=== PATIENT | male | born 1960 | race Caucasian/White ===

== ENCOUNTER → 2016-09-11 | Outpatient (REF) | payer SELFPAY ==
[2016-09-11 13:44] LABS: ANION GAP 7 MEQ/L (8-16); BLOOD UREA NITROGEN 16 MG/DL (7-18); CALCIUM LEVEL 8.7 MG/DL (8.5-10.1); CARBON DIOXIDE LEVEL 26 MEQ/L (21-32); CHLORIDE LEVEL 106 MEQ/L (98-107); CHOLESTEROL LEVEL 148 MG/DL (<200); CREATININE FOR GFR 0.55 MG/DL (0.70-1.30); GLOMERULAR FILTRATION RATE > 60.0 (>56); GLUCOSE, FASTING 101 MG/DL (70-105); POTASSIUM SERUM 4.1 MEQ/L (3.5-5.1); SODIUM LEVEL 139 MEQ/L (136-145); TRIGLYCERIDES LEVEL 58 MG/DL (<150)
== END ==
LOC: M LABDRAW1 11:57
PROVIDERS: ATTEND Family Medicine
DX: Z13.1 Encounter for screening for diabetes mellitus (principal); Z13.220 Encounter for screening for lipoid disorders; I10 Essential (primary) hypertension

== ENCOUNTER → 2016-09-24 | Outpatient (CLI) | payer SELFPAY ==
[~2016-09-24] VITALS: Ht 154.9 cm; Wt 54.4 kg
[~2016-09-24] MED LIST: ATOR1TAB21 PO; HYDR25TA6 PO; LIDOCAINE 2% INJ 100 MG/5 ML SDV (FOR ANES.) As Ordered ONE; LISI10TA4 PO; NS 1,000 ML IV ONE; PROPOFOL 200 MG/20 ML VIAL As Ordered ONE; PROPOFOL 500 MG/50 ML VIAL As Ordered ONE
--- NOTE | 2016-09-24 11:55 | ROOR ---
Patient Name: Darshan Gregory Procedure Date: 09/24/2016 11:17 AM Date of : 1960 Age: 55 Room: [facility] Gender: Male Note Status: Finalized Procedure: Colonoscopy Indications: Screening for colorectal malignant neoplasm Providers: Pancho Figueroa DO Referring MD: Abe Recio Do Requesting Provider: Medicines: Propofol per Anesthesia Complications: No immediate complications. Procedure: Pre-Anesthesia Assessment: - Prior to the procedure, a History and Physical was performed, and patient medications and allergies were reviewed. The patient is competent. The risks and benefits of the procedure and the sedation options and risks were discussed with the patient. All questions were answered and informed consent was obtained. Patient identification and proposed procedure were verified by the physician, the nurse, the anesthesiologist and the cartographic technician in the endoscopy suite. Mental Status Examination: alert and oriented. Airway Examination: normal oropharyngeal airway and neck mobility. Respiratory Examination: clear to auscultation. CV Examination: normal. Prophylactic Antibiotics: The patient does not require prophylactic antibiotics. Prior Anticoagulants: The patient has taken no previous anticoagulant or antiplatelet agents. ASA Grade Assessment: II - A patient with mild systemic disease. After reviewing the risks and benefits, the patient was deemed in satisfactory condition to undergo the procedure. The anesthesia plan was to use monitored anesthesia care (MAC). Immediately prior to administration of medications, the patient was re-assessed for adequacy to receive sedatives. The heart rate, respiratory rate, oxygen saturations, blood pressure, adequacy of pulmonary ventilation, and response to care were monitored throughout the procedure. The physical status of the patient was re-assessed after the procedure. The Colonoscope was introduced through the anus and advanced to the cecum, identified by appendiceal orifice and ileocecal valve. The colonoscopy was performed without difficulty. The patient tolerated the procedure well. Findings: Multiple small and large-mouthed diverticula were found in the sigmoid colon. A diffuse area of moderately congested, erythematous and friable (with contact bleeding) mucosa was found in the sigmoid colon. Biopsies were taken with a cold forceps for histology. Estimated blood loss was minimal. Three pedunculated polyps were found in the transverse colon. The polyps were 8 to 15 mm in size. These polyps were removed with a hot snare. Resection and retrieval were complete. Estimated blood loss was minimal. A less than 5 mm polyp was found in the sigmoid colon. The polyp was hyperplastic. The polyp was removed with a cold biopsy forceps. Resection and retrieval were complete. Estimated blood loss was minimal. The exam was otherwise without abnormality on direct and retroflexion views. Impression: - Diverticulosis in the sigmoid colon. - Congested, erythematous and friable (with contact bleeding) mucosa in the sigmoid colon. Biopsied. - Three 8 to 15 mm polyps in the transverse colon, removed with a hot snare. Resected and retrieved. - One less than 5 mm polyp in the sigmoid colon, removed with a cold biopsy forceps. Resected and retrieved. - The examination was otherwise normal on direct and retroflexion views. Recommendation: - Patient has a contact number available for emergencies. The signs and symptoms of potential delayed complications were discussed with the patient. Return to normal activities tomorrow. Written discharge instructions were provided to the patient. - Repeat colonoscopy in 3 years for surveillance based on pathology results. - Return to my office PRN. Pancho Figueroa DO 09/24/2016 11:55:06 AM This report has been signed electronically. Number of Addenda: 0 Note Initiated On: 09/24/2016 11:17 AM Estimated Blood Loss: Estimated blood loss was minimal.
[2016-09-24 12:33] VITALS: BP 141/87
== END | disposition home or self-care (01) ==
LOC: M OPP 09:44
PROVIDERS: ATTEND Surgery
DX: Z12.11 Encounter for screening for malignant neoplasm of colon (principal); D12.3 Benign neoplasm of transverse colon; D12.5 Benign neoplasm of sigmoid colon; K57.30 Diverticulosis of large intestine without perforation or abscess without bleeding; K63.89 Other specified diseases of intestine; K92.2 Gastrointestinal hemorrhage, unspecified; I10 Essential (primary) hypertension; E78.5 Hyperlipidemia, unspecified; F32.9 Major depressive disorder, single episode, unspecified; R51 Headache; I20.9 Angina pectoris, unspecified; F17.210 Nicotine dependence, cigarettes, uncomplicated; F12.20 Cannabis dependence, uncomplicated; Z79.899 Other long term (current) drug therapy; Z80.8 Family history of malignant neoplasm of other organs or systems; Z80.3 Family history of malignant neoplasm of breast; Z80.1 Family history of malignant neoplasm of trachea, bronchus and lung

== ENCOUNTER 2017-04-14 23:16 | Inpatient (IN) | payer MEDICAID, SELFPAY ==
[2017-04-14] MEDS: NS 1,000 ML IV (23:30)
[2017-04-14 23:37] LABS: HEMATOCRIT 46.4 % (42.0-52.0); HEMOGLOBIN 16.2 g/dl (14.0-18.0); MEAN CORPUSCULAR HEMOGLOBIN 29.9 pg (27.0-33.0); MEAN CORPUSCULAR HGB CONC 34.9 g/dl (32.0-36.5); MEAN CORPUSCULAR VOLUME 85.8 fl (80.0-96.0); PLATELET COUNT, AUTOMATED 194 10^3/uL (150-450); RED BLOOD COUNT 5.41 10^6/uL (4.30-6.10); RED CELL DISTRIBUTION WIDTH 14.8 % (11.5-14.5)
[2017-04-14 23:40] LABS: POS COUNT POS FLAG; POSITIVE DIFF POS FLAG; POSITIVE MORPH POS FLAG; WHITE BLOOD COUNT 47.7 10^3/uL (4.0-10.0)
[2017-04-14 23:41] LABS: ADD MANUAL DIFFER YES; DIFF SLIDE NUMBER 365
[2017-04-14] MEDS: LORazepam 2 MG/ML VIAL (J2060) IV (23:42)
[2017-04-14 23:47] LABS: INR 1.35
[2017-04-14 23:48] LABS: PARTIAL THROMBOPLASTIN TIME 30.4 SECONDS (26.8-37.9)
[2017-04-15 00:01] LABS: ACETAMINOPHEN LEVEL 4.3 UG/ML (10.0-30.0); ALBUMIN 2.9 GM/DL (3.2-5.2); ALBUMIN/GLOBULIN RATIO 0.66 (1.00-1.93); ALKALINE PHOSPHATASE 370 U/L (45-117); ALT/SGPT 70 U/L (12-78); ANION GAP 19 MEQ/L (8-16); AST/SGOT 81 U/L (7-37); BILIRUBIN,DIRECT 0.3 MG/DL (0.0-0.2); BILIRUBIN,TOTAL 0.7 MG/DL (0.2-1.0); BLOOD UREA NITROGEN 62 MG/DL (7-18); CARBON DIOXIDE LEVEL 18 MEQ/L (21-32); CHLORIDE LEVEL 102 MEQ/L (98-107); CPK CREATINE PHOSPHOKINASE 360 U/L (39-308); CREATININE FOR GFR 3.07 MG/DL (0.70-1.30); ETHYL ALCOHOL (ETHANOL) 0.005 % (0.000-0.010); GLOMERULAR FILTRATION RATE 22.5 (>56); GLUCOSE, FASTING 166 MG/DL (70-105); POTASSIUM SERUM 2.3 MEQ/L (3.5-5.1); SALICYLATE LEVEL 3.7 MG/DL (5.0-30.0); SODIUM LEVEL 139 MEQ/L (136-145); TOTAL PROTEIN 7.3 GM/DL (6.4-8.2); TROPONIN I 0.17 NG/ML (< 0.10)
[2017-04-15 00:06] LABS: CK-MB VALUE MASS 16.2 NG/ML (0.0-3.6)
[2017-04-15 00:08] LABS: BANDS 1 % (< 11); LYMPHOCYTES 3 % (16-52); MONOCYTES 4 % (0-8); NEUTROPHILS 92 % (35-75)
[2017-04-15 00:09] LABS: PLATELET ESTIMATE NORMAL (NORMAL); TOXIC VACUOLATION 2+
[2017-04-15 00:10] LABS: TOXIC GRANULATION 1+
[2017-04-15 00:11] LABS: BURR CELLS 2+; PLATELET CLUMPS SMALL AMT
[2017-04-15 00:13] LABS: LACTIC ACID SEPSIS PROTOCOL 6.8 MMOL/L (0.4-2.0)
[2017-04-15 00:18] LABS: ABG HCO3 18.2 MEQ/L (22.0-26.0); ABG O2 SATURATION 93.6 % (95.0-99.0); ABG PARTIAL PRESSURE CO2 29.6 mmHg (35.0-45.0); ABG STANDARD HCO3 20.3 MEQ/L (22.0-26.0); ABG TOTAL CO2 19.1 MEQ/L (22.0-29.0); ABG pH (ARTERIAL) 7.407 UNITS (7.350-7.450)
[2017-04-15 00:25] LABS: BEDSIDE GLUCOSE 174 MG/DL (70-105)
[2017-04-15] MEDS: DILUENT IV (00:30)
[2017-04-15] MEDS: NS IV (00:30)
[2017-04-15 00:35] LABS: AMMONIA < 10 uMOL/L (<32)
[2017-04-15 00:41] LABS: OSMOLALITY SERUM 312 MOSM/KG (275-295)
[2017-04-15 00:56] LABS: AMORPHOUS SEDIMENT RFX SMALL (NEGATIVE); KETONE, URINE AUTO RFX NEGATIVE (NEGATIVE); LEUKOCYTE ESTERASE UR AUTO RFX NEGATIVE (NEGATIVE); NITRITE, URINE AUTO RFX NEGATIVE (NEGATIVE); RBC, URINE AUTO RFX TNTC /HPF (0-3); SPECIFIC GRAVITY UR AUTO RFX 1.018 (1.002-1.035); SQUAM EPITHELIAL CELL UR AURFX 0 /HPF (0-6); TRANSITIONAL EPITHELIAL AU RFX 6 /HPF; WBC, URINE AUTO RFX 0 /HPF (0-3)
[2017-04-15 01:08] LABS: AMPHETAMINES LEVEL URINE NEGATIVE (NEGATIVE); BARBITURATES URINE NEGATIVE (NEGATIVE); BENZODIAZEPINES URINE NEGATIVE (NEGATIVE); CANNABINOIDS URINE POSITIVE (NEGATIVE); COCAINE METABOLITE URINE NEGATIVE (NEGATIVE); METHADONE URINE NEGATIVE (NEGATIVE); OPIATES URINE NEGATIVE (NEGATIVE); PHENCYCLIDINE URINE NEGATIVE (NEGATIVE)
[2017-04-15] MEDS: LORazepam 2 MG/ML VIAL (J2060) IM (01:20)
[2017-04-15] MEDS: KCL 10MEQ IN 100ML SWI (KRUN) 10 MEQ in APPROPRIATE DILUENT 1 EA IV ×10 (01:22→17:52)
[2017-04-15] MEDS: LORazepam 2 MG/ML VIAL (J2060) IV ×2 (02:00→04:35)
[2017-04-15] MEDS: PIPERACILLIN/TAZOBACTAM SOD 3.375 GM in APPROPRIATE DILUENT 1 EA IV (02:00)
[2017-04-15] MEDS ORDERED: PIPERACILLIN/TAZOBACTAM SOD 2.25 GM in APPROPRIATE DILUENT 1 EA IV (02:30)
[2017-04-15] MEDS ORDERED: diphenhydrAMINE INJ 50MG/ML VIAL (J1200) As Ordered (03:02)
[2017-04-15] MEDS: diphenhydrAMINE INJ 50MG/ML VIAL (J1200) IV ×2 (03:05→03:06)
[2017-04-15] MEDS ORDERED: FAMOTIDINE/NS 20 MG/50 ML BAG (S0028) As Ordered (03:14)
[2017-04-15] MEDS ORDERED: methylPREDNISolone INJ 125 MG/2 ML VIAL (J2930) As Ordered (03:14)
[2017-04-15] MEDS: methylPREDNISolone INJ 125 MG/2 ML VIAL (J2930) IV (03:15)
[2017-04-15] MEDS: FAMOTIDINE INJ 20MG/2ML VIAL (S0028) IVP (03:16)
[2017-04-15] MEDS: EPINEPHrine INJ 1 MG/ML 1ML AMP SC (03:25)
[2017-04-15] MEDS: IPRATROPIUM 0.5MG/ALBUTEROL 2.5MG INH SOL UD 3ML (DUONEB)(J7620) NEB ×4 (03:26→21:31)
[2017-04-15] MEDS: VANCOMYCIN HCL 1,000 MG, VIAL MATE ADAPTER 1 EACH in D5W 250 ML IV (03:55)
[2017-04-15] MEDS ORDERED: HALOPERIDOL 2 MG TAB PO (05:15)
[2017-04-15] MEDS ORDERED: OXAZEPAM 10 MG CAP PO ×3 (05:15→06:00)
[2017-04-15] MEDS: PANTOPRAZOLE SODIUM 40 MG in D5W 50 ML IV ×2 (05:19→09:08)
[2017-04-15] MEDS ORDERED: IPRATROPIUM 0.5MG/ALBUTEROL 2.5MG INH SOL UD 3ML (DUONEB)(J7620) NEB (05:30)
[2017-04-15 05:45] LABS: BEDSIDE GLUCOSE 268 MG/DL (70-105)
[2017-04-15 06:02] LABS: HEMATOCRIT 40.7 % (42.0-52.0); MEAN CORPUSCULAR HEMOGLOBIN 29.5 pg (27.0-33.0); MEAN CORPUSCULAR HGB CONC 34.9 g/dl (32.0-36.5); MEAN CORPUSCULAR VOLUME 84.6 fl (80.0-96.0); PLATELET COUNT, AUTOMATED 170 10^3/uL (150-450); RED BLOOD COUNT 4.81 10^6/uL (4.30-6.10); RED CELL DISTRIBUTION WIDTH 14.6 % (11.5-14.5)
[2017-04-15 06:08] LABS: HEMOGLOBIN 14.2 g/dl (14.0-18.0); POS COUNT POS FLAG
[2017-04-15 06:09] LABS: WHITE BLOOD COUNT 49.6 10^3/uL (4.0-10.0)
[2017-04-15] MEDS: MEROPENEM INJ 500 MG in APPROPRIATE DILUENT 1 EA IV (06:10)
[2017-04-15 06:13] LABS: REASON FOR REVIEW COMPREHENSIVE REVIEW; SLIDE REVIEW Report; SOURCE PERIPHERAL SMEAR
[2017-04-15 06:15] LABS: INR 1.23; PROTHROMBIN TIME 15.7 SECONDS (12.4-14.5)
[2017-04-15 06:16] LABS: FIBRINOGEN 491 MG/DL (221-452)
[2017-04-15 06:24] LABS: ALBUMIN 2.3 GM/DL (3.2-5.2); ALBUMIN/GLOBULIN RATIO 0.62 (1.00-1.93); ALKALINE PHOSPHATASE 241 U/L (45-117); ALT/SGPT 55 U/L (12-78); ANION GAP 14 MEQ/L (8-16); AST/SGOT 64 U/L (7-37); BILIRUBIN,TOTAL 0.7 MG/DL (0.2-1.0); BLOOD UREA NITROGEN 58 MG/DL (7-18); CALCIUM LEVEL 6.5 MG/DL (8.5-10.1); CARBON DIOXIDE LEVEL 18 MEQ/L (21-32); CHLORIDE LEVEL 108 MEQ/L (98-107); CREATININE FOR GFR 1.97 MG/DL (0.70-1.30); GLOMERULAR FILTRATION RATE 37.5 (>56); GLUCOSE, FASTING 259 MG/DL (70-105); POTASSIUM SERUM 2.5 MEQ/L (3.5-5.1); SODIUM LEVEL 140 MEQ/L (136-145)
[2017-04-15 06:38] LABS: MAGNESIUM LEVEL 1.8 MG/DL (1.8-2.4)
[2017-04-15 06:48] LABS: D-DIMER QUANT > 4000.0 ng/ml (<500)
[2017-04-15] MEDS: KCL 40MEQ in NS 1000ML 1,000 ML IV ×2 (06:59→15:54)
[2017-04-15 07:06] LABS: ABG BASE EXCESS -4.9 (-2.0-2.0); ABG HCO3 18.2 MEQ/L (22.0-26.0); ABG O2 SATURATION 95.5 % (95.0-99.0); ABG PARTIAL PRESSURE CO2 28.8 mmHg (35.0-45.0); ABG PARTIAL PRESSURE O2 77.6 mmHg (75.0-100.0); ABG STANDARD HCO3 20.5 MEQ/L (22.0-26.0); ABG TOTAL CO2 19.1 MEQ/L (22.0-29.0); ABG pH (ARTERIAL) 7.418 UNITS (7.350-7.450)
[2017-04-15 07:38] LABS: CK-MB VALUE MASS 16.3 NG/ML (0.0-3.6)
[2017-04-15 07:47] LABS: CPK CREATINE PHOSPHOKINASE 320 U/L (39-308); MB/CK RELATIVE INDEX 5.09 (< OR =4)
[2017-04-15] MEDS: NICOTINE 21MG/24HR 1 EA TRANSDERMAL TD (09:00)
[2017-04-15 09:28] LABS: LACTIC ACID SEPSIS PROTOCOL 2.5 MMOL/L (0.4-2.0)
[2017-04-15] MEDS ORDERED: KCL 10MEQ IN STERILE WATER 100ML As Ordered ×2 (10:24→11:22)
[2017-04-15] MEDS ORDERED: MEROPENEM INJ 1 GM in NS 100 ML IV (11:15)
[2017-04-15] MEDS ORDERED: HALOPERIDOL 5 MG/ML VIAL (J1630) As Ordered (11:23)
[2017-04-15] MEDS: HALOPERIDOL 5 MG/ML VIAL (J1630) IV (11:35)
[2017-04-15 12:07] LABS: HEMOGLOBIN 14.4 g/dl (14.0-18.0); MEAN CORPUSCULAR HEMOGLOBIN 30.1 pg (27.0-33.0); MEAN CORPUSCULAR VOLUME 83.7 fl (80.0-96.0); PLATELET COUNT, AUTOMATED 126 10^3/uL (150-450); RED BLOOD COUNT 4.78 10^6/uL (4.30-6.10); RED CELL DISTRIBUTION WIDTH 14.7 % (11.5-14.5)
[2017-04-15 12:08] LABS: HEMOGLOBIN 14.4 g/dl (14.0-18.0)
[2017-04-15 12:25] LABS: POS COUNT POS FLAG; POSITIVE DIFF POS FLAG; POSITIVE MORPH POS FLAG; WHITE BLOOD COUNT 42.7 10^3/uL (4.0-10.0)
[2017-04-15 12:26] LABS: ADD MANUAL DIFFER YES; DIFF SLIDE NUMBER 210
[2017-04-15 12:28] LABS: BANDS 7 % (< 11); LYMPHOCYTES 4 % (16-52); MONOCYTES 2 % (0-8); NEUTROPHILS 87 % (35-75)
[2017-04-15 12:30] LABS: BURR CELLS 1+; PLATELET ESTIMATE DECREASED (NORMAL); TOXIC VACUOLATION 3+
[2017-04-15 12:43] LABS: ERYTHROCYTE SEDIMENTATION RATE 7 mm/hr (0-20)
[2017-04-15 12:47] LABS: ALBUMIN 2.2 GM/DL (3.2-5.2); ALBUMIN/GLOBULIN RATIO 0.65 (1.00-1.93); ALKALINE PHOSPHATASE 183 U/L (45-117); ALT/SGPT 52 U/L (12-78); ANION GAP 11 MEQ/L (8-16); AST/SGOT 59 U/L (7-37); BILIRUBIN,TOTAL 0.7 MG/DL (0.2-1.0); BLOOD UREA NITROGEN 55 MG/DL (7-18); CARBON DIOXIDE LEVEL 20 MEQ/L (21-32); CHLORIDE LEVEL 114 MEQ/L (98-107); CREATININE FOR GFR 1.58 MG/DL (0.70-1.30); GLOMERULAR FILTRATION RATE 48.4 (>56); GLUCOSE, FASTING 127 MG/DL (70-105); MAGNESIUM LEVEL 1.8 MG/DL (1.8-2.4); PHOSPHORUS LEVEL 2.7 MG/DL (2.5-4.9); POTASSIUM SERUM 3.2 MEQ/L (3.5-5.1); SODIUM LEVEL 145 MEQ/L (136-145); TOTAL PROTEIN 5.6 GM/DL (6.4-8.2)
[2017-04-15] MEDS ORDERED: fentaNYL 100 MCG/2 ML INJECTION (J3010) As Ordered (13:29)
[2017-04-15 13:36] LABS: INR 1.23; PROTHROMBIN TIME 15.7 SECONDS (12.4-14.5)
[2017-04-15 13:37] LABS: PARTIAL THROMBOPLASTIN TIME 30.9 SECONDS (26.8-37.9)
[2017-04-15] MEDS ORDERED: KCL 10MEQ IN 100ML SWI (KRUN) 10 MEQ in APPROPRIATE DILUENT 1 EA IV (15:00)
[2017-04-15] MEDS ORDERED: POTASSIUM CHLORIDE INJ 40 MEQ in NS 1,000 ML IV (15:00)
[2017-04-15 15:21] LABS: CSF MONONUCLEAR CELL % 8.6 % (0-0); CSF POLYMORPHONUCLEAR CELL % 91.4 % (0-0); CSF RBC < 2 10^3/uL (<2); CSF WBC 1499 /uL (0-10)
[2017-04-15 15:22] LABS: APPEARANCE, CSF HAZY (CLEAR); COLOR, CSF YELLOW (COLORLESS); CSF DIFF IF INDICATED? YES (NO); CSF TUBE# CELL CNT TUBE 1
[2017-04-15 15:25] LABS: CSF MONONUCLEAR CELL % 7.9 % (0-0); CSF POLYMORPHONUCLEAR CELL % 92.1 % (0-0); CSF RBC < 2 10^3/uL (<2)
[2017-04-15 15:33] LABS: APPEARANCE, CSF CLOUDY (CLEAR); COLOR, CSF YELLOW (COLORLESS); CSF DIFF IF INDICATED? YES (NO); CSF TUBE# CELL CNT TUBE 4; CSF WBC 10490 /uL (0-10)
[2017-04-15] MEDS: MAG SULF 1GM/100ML (MAG RUN) 1 GM in APPROPRIATE DILUENT 1 EA IV (15:38)
[2017-04-15 15:41] LABS: CSF TUBE# GLU TUBE 2; CSF TUBE# TP TUBE 2
[2017-04-15] MEDS: MEROPENEM INJ 2 GM in NS 100 ML IV (15:52)
[2017-04-15 15:59] LABS: GLUCOSE CSF < 1 MG/DL (40-75); TOTAL PROTEIN,CSF 848.1 MG/DL (15-45)
[2017-04-15 16:12] LABS: CPK CREATINE PHOSPHOKINASE 350 U/L (39-308); TROPONIN I 0.21 NG/ML (< 0.10)
[2017-04-15 16:13] LABS: CK-MB VALUE MASS 18.8 NG/ML (0.0-3.6); MB/CK RELATIVE INDEX 5.37 (< OR =4)
[2017-04-15] MEDS: dexameTHASONE 20 MG/5 ML VIAL (J1100) IV ×2 (17:51→22:46)
[2017-04-15 18:04] LABS: HEMATOCRIT 46.9 % (42.0-52.0); HEMOGLOBIN 15.5 g/dl (14.0-18.0)
[2017-04-15] MEDS: levETIRAcetam INJection 1,000 MG in D5W 100 ML IV (19:02)
[2017-04-15] MEDS ORDERED: NOREPINEPHRINE 4 MG/4 ML AMP As Ordered (19:33)
[2017-04-15] MEDS: NOREPINEPHRINE BITARTRATE 8 MG in D5W 492 ML IV (19:45)
[2017-04-15] MEDS ORDERED: levETIRAcetam INJection 750 MG in D5W 100 ML IV (21:00)
[2017-04-15] MEDS: CHLORHEXIDINE ORAL RINSE 0.12%/15ML 120ML BOTTLE MT (21:00)
[2017-04-15 21:18] LABS: ABG BASE EXCESS -9.5 (-2.0-2.0); ABG PARTIAL PRESSURE CO2 21.6 mmHg (35.0-45.0); ABG PARTIAL PRESSURE O2 145.8 mmHg (75.0-100.0); ABG TOTAL CO2 13.7 MEQ/L (22.0-29.0); ABG pH (ARTERIAL) 7.399 UNITS (7.350-7.450)
[2017-04-15] MEDS ORDERED: ALBUTEROL SULFATE 2.5 MG/0.5 ML INH NEB SOLN NEB (22:30)
[2017-04-15] MEDS: CEFTRIAXONE SOD 1 GM in APPROPRIATE DILUENT 1 EA IV (22:45)
[2017-04-15] MEDS: MIDAZOLAM INJ 2 MG/2 ML VIAL (J2250) IV ×2 (22:45→23:16)
[2017-04-15] MEDS: ALBUTEROL SULFATE 2.5 MG/0.5 ML INH NEB SOLN NEB (23:40)
[2017-04-16 00:06] LABS: HEMATOCRIT 37.6 % (42.0-52.0); HEMOGLOBIN 12.9 g/dl (14.0-18.0)
[2017-04-16] MEDS: PROPOFOL 1,000 MG in APPROPRIATE DILUENT 1 EA IV ×2 (00:09→18:28)
[2017-04-16] MEDS: KCL 40MEQ in NS 1000ML 1,000 ML IV (02:48)
[2017-04-16 03:07] LABS: BEDSIDE GLUCOSE 204 MG/DL (70-105)
[2017-04-16 03:07] LABS: BEDSIDE GLUCOSE 177 MG/DL (70-105)
[2017-04-16] MEDS: ALBUTEROL SULFATE 2.5 MG/0.5 ML INH NEB SOLN NEB ×6 (04:18→23:29)
[2017-04-16] MEDS: dexameTHASONE 20 MG/5 ML VIAL (J1100) IV ×4 (05:27→22:50)
[2017-04-16 05:40] LABS: HEMATOCRIT 35.9 % (42.0-52.0); HEMOGLOBIN 12.5 g/dl (14.0-18.0); MEAN CORPUSCULAR HEMOGLOBIN 29.3 pg (27.0-33.0); MEAN CORPUSCULAR HGB CONC 34.8 g/dl (32.0-36.5); MEAN CORPUSCULAR VOLUME 84.3 fl (80.0-96.0); RED BLOOD COUNT 4.26 10^6/uL (4.30-6.10); WHITE BLOOD COUNT 21.8 10^3/uL (4.0-10.0)
[2017-04-16 05:51] LABS: ABG BASE EXCESS -7.5 (-2.0-2.0); ABG HCO3 13.7 MEQ/L (22.0-26.0); ABG PARTIAL PRESSURE O2 149.4 mmHg (75.0-100.0); ABG STANDARD HCO3 18.5 MEQ/L (22.0-26.0); ABG TOTAL CO2 14.2 MEQ/L (22.0-29.0); ABG pH (ARTERIAL) 7.477 UNITS (7.350-7.450)
[2017-04-16 05:53] LABS: ABG PARTIAL PRESSURE CO2 18.9 mmHg (35.0-45.0)
[2017-04-16 06:03] LABS: ALBUMIN 1.8 GM/DL (3.2-5.2); ALBUMIN/GLOBULIN RATIO 0.56 (1.00-1.93); ALKALINE PHOSPHATASE 128 U/L (45-117); ALT/SGPT 42 U/L (12-78); ANION GAP 11 MEQ/L (8-16); AST/SGOT 49 U/L (7-37); BILIRUBIN,TOTAL 0.5 MG/DL (0.2-1.0); BLOOD UREA NITROGEN 63 MG/DL (7-18); CALCIUM LEVEL 5.9 MG/DL (8.5-10.1); CARBON DIOXIDE LEVEL 17 MEQ/L (21-32); CHLORIDE LEVEL 123 MEQ/L (98-107); CHOLESTEROL LEVEL 52 MG/DL (< 200); CPK CREATINE PHOSPHOKINASE 488 U/L (39-308); CREATININE FOR GFR 1.57 MG/DL (0.70-1.30); GLOMERULAR FILTRATION RATE 48.7 (>56); GLUCOSE, FASTING 188 MG/DL (70-105); LDH LACTATE DEHYDROGENASE 312 U/L (87-241); MAGNESIUM LEVEL 2.5 MG/DL (1.8-2.4); PHOSPHORUS LEVEL 2.2 MG/DL (2.5-4.9); POTASSIUM SERUM 3.5 MEQ/L (3.5-5.1); SODIUM LEVEL 151 MEQ/L (136-145); TRIGLYCERIDES LEVEL 185 MG/DL (<150)
[2017-04-16] MEDS: levETIRAcetam INJection 500 MG in D5W 100 ML IV ×2 (06:09→18:26)
[2017-04-16 06:23] LABS: ADD MANUAL DIFFER YES; DIFF SLIDE NUMBER 63; PLATELET COUNT, AUTOMATED 91 10^3/uL (150-450); POSITIVE MORPH POS FLAG
[2017-04-16 06:24] LABS: IMMATURE PLATELET FRACTION % 11.3 % (0.0-10.9)
[2017-04-16 06:31] LABS: LYMPHOCYTES 4 % (16-52); MONOCYTES 2 % (0-8); NEUTROPHILS 94 % (35-75); PLATELET ESTIMATE DECREASED (NORMAL)
[2017-04-16 06:32] LABS: CRENATED RBC 1+; HOWELL-JOLLY BODIES 1+
[2017-04-16] MEDS: KCL 20MEQ IN D5/0.45NS 1000ML 1,000 ML IV (07:19)
[2017-04-16 07:41] LABS: IONIZED CALCIUM 3.6 MG/DL (4.5-5.3)
[2017-04-16] MEDS: PANTOPRAZOLE 40MG INJ (PROTONIX) (C9113) IV (09:00)
[2017-04-16] MEDS: CHLORHEXIDINE ORAL RINSE 0.12%/15ML 120ML BOTTLE MT ×2 (09:00→19:40)
[2017-04-16] MEDS: VANCOMYCIN HCL 500 MG in D5W MINI-BAG PLUS 100 ML IV ×2 (09:01→15:26)
[2017-04-16] MEDS: NICOTINE 21MG/24HR 1 EA TRANSDERMAL TD (09:01)
[2017-04-16] MEDS: LR 1,000 ML IV ×3 (09:35→19:39)
[2017-04-16] MEDS: CEFTRIAXONE SOD 2 GM in APPROPRIATE DILUENT 1 EA IV ×2 (10:12→22:49)
[2017-04-16] MEDS: NOREPINEPHRINE BITARTRATE 8 MG in D5W 492 ML IV (10:13)
[2017-04-16] MEDS: LACTATED RINGER'S 1000 ML IV (10:40)
[2017-04-16] MEDS ORDERED: SODIUM CHLORIDE 0.9% INJ 10 ML SYR IV (11:00)
[2017-04-16] MEDS ORDERED: SLF 3 ML SYR IV (11:00)
[2017-04-16] MEDS: POTASSIUM CHLORIDE 10% LIQ 20 MEQ/15 ML UDC NG (11:04)
[2017-04-16 12:23] LABS: BEDSIDE GLUCOSE 230 MG/DL (70-105)
[2017-04-16] MEDS: HumaLOG INSULIN (NovoLOG) PER UNIT SC ×2 (12:24→17:55)
[2017-04-16 12:59] LABS: ANION GAP 9 MEQ/L (8-16); BLOOD UREA NITROGEN 57 MG/DL (7-18); CARBON DIOXIDE LEVEL 18 MEQ/L (21-32); CHLORIDE LEVEL 124 MEQ/L (98-107); CREATININE FOR GFR 1.39 MG/DL (0.70-1.30); GLOMERULAR FILTRATION RATE 56.1 (>56); GLUCOSE, FASTING 245 MG/DL (70-105); POTASSIUM SERUM 4.1 MEQ/L (3.5-5.1); SODIUM LEVEL 151 MEQ/L (136-145)
[2017-04-16 13:25] LABS: INR 1.33; PROTHROMBIN TIME 16.8 SECONDS (12.4-14.5)
[2017-04-16 13:44] LABS: CK-MB VALUE MASS 21.6 NG/ML (0.0-3.6); CPK CREATINE PHOSPHOKINASE 1350 U/L (39-308)
[2017-04-16 13:49] LABS: TROPONIN I 3.71 NG/ML (< 0.10)
[2017-04-16] MEDS: SODIUM CHLORIDE 0.9% INJ 10 ML SYR IV ×2 (14:41→22:49)
[2017-04-16] MEDS: SLF 3 ML SYR IV ×2 (14:41→22:49)
[2017-04-16 17:55] LABS: BEDSIDE GLUCOSE 142 MG/DL (70-105)
[2017-04-16] MEDS: POTASSIUM PHOSPHATE INJ 15 MMOL in D5W 250 ML IV (19:39)
[2017-04-16 19:57] LABS: ANION GAP 9 MEQ/L (8-16); BLOOD UREA NITROGEN 52 MG/DL (7-18); CALCIUM LEVEL 6.3 MG/DL (8.5-10.1); CARBON DIOXIDE LEVEL 20 MEQ/L (21-32); CHLORIDE LEVEL 128 MEQ/L (98-107); CREATININE FOR GFR 1.14 MG/DL (0.70-1.30); GLOMERULAR FILTRATION RATE > 60.0 (>56); GLUCOSE, FASTING 145 MG/DL (70-105); POTASSIUM SERUM 3.5 MEQ/L (3.5-5.1); SODIUM LEVEL 157 MEQ/L (136-145)
[2017-04-16] MEDS: D5W/0.45% SODIUM CHLORIDE 1,000 ML IV (20:22)
[2017-04-17] MEDS: HumaLOG INSULIN (NovoLOG) PER UNIT SC ×5 (00:31→23:51)
[2017-04-17 00:42] LABS: BEDSIDE GLUCOSE 194 MG/DL (70-105)
[2017-04-17] MEDS: ALBUTEROL SULFATE 2.5 MG/0.5 ML INH NEB SOLN NEB ×5 (03:09→19:38)
[2017-04-17] MEDS: dexameTHASONE 20 MG/5 ML VIAL (J1100) IV ×4 (04:20→22:02)
[2017-04-17] MEDS: D5W/0.45% SODIUM CHLORIDE 1,000 ML IV (04:20)
[2017-04-17 05:54] LABS: ABG BASE EXCESS -5.7 (-2.0-2.0); ABG HCO3 16.3 MEQ/L (22.0-26.0); ABG O2 SATURATION 98.7 % (95.0-99.0); ABG PARTIAL PRESSURE O2 143.3 mmHg (75.0-100.0); ABG STANDARD HCO3 19.8 MEQ/L (22.0-26.0); ABG pH (ARTERIAL) 7.468 UNITS (7.350-7.450)
[2017-04-17] MEDS: levETIRAcetam INJection 500 MG in D5W 100 ML IV ×2 (06:00→18:40)
[2017-04-17] MEDS: SLF 3 ML SYR IV ×3 (06:01→21:27)
[2017-04-17 06:02] LABS: BASO # 0.1 10^3/uL (0.0-0.2); BASO % 0.3 % (0.0-1.0); HEMATOCRIT 30.4 % (42.0-52.0); HEMOGLOBIN 10.8 g/dl (14.0-18.0); IMMATURE GRANULOCYTE # 0.2 10^3/uL (0-0); LYMPH # 1.4 10^3/uL (1.5-4.5); MEAN CORPUSCULAR HGB CONC 35.5 g/dl (32.0-36.5); MEAN CORPUSCULAR VOLUME 84.4 fl (80.0-96.0); MONO # 1.1 10^3/uL (0.0-0.8); MONO % 4.8 % (0.0-5.0); NEUTROPHILS # 19.7 10^3/uL (1.8-7.7); NEUTROPHILS % 87.9 % (36.0-66.0); RED CELL DISTRIBUTION WIDTH 15.5 % (11.5-14.5); WHITE BLOOD COUNT 22.5 10^3/uL (4.0-10.0)
[2017-04-17] MEDS: SODIUM CHLORIDE 0.9% INJ 10 ML SYR IV ×3 (06:02→21:27)
[2017-04-17 06:05] LABS: PLATELET COUNT, AUTOMATED 42 10^3/uL (150-450)
[2017-04-17 06:06] LABS: IMMATURE PLATELET FRACTION % 14.4 % (0.0-10.9)
[2017-04-17 06:28] LABS: ALBUMIN 1.7 GM/DL (3.2-5.2); ALBUMIN/GLOBULIN RATIO 0.53 (1.00-1.93); ALKALINE PHOSPHATASE 116 U/L (45-117); ALT/SGPT 33 U/L (12-78); ANION GAP 9 MEQ/L (8-16); AST/SGOT 52 U/L (7-37); BILIRUBIN,TOTAL 0.3 MG/DL (0.2-1.0); BLOOD UREA NITROGEN 44 MG/DL (7-18); C REACTIVE PROTEIN QUANTITATIV 9.65 MG/DL (0.00-0.30); CALCIUM LEVEL 6.5 MG/DL (8.5-10.1); CARBON DIOXIDE LEVEL 20 MEQ/L (21-32); CHLORIDE LEVEL 127 MEQ/L (98-107); CHOLESTEROL LEVEL 65 MG/DL (< 200); CPK CREATINE PHOSPHOKINASE 978 U/L (39-308); CREATININE FOR GFR 0.97 MG/DL (0.70-1.30); GLOMERULAR FILTRATION RATE > 60.0 (>56); GLUCOSE, FASTING 161 MG/DL (70-105); IMMUNOGLOBULIN G 716 MG/DL (681-1648); IMMUNOGLOBULIN M 65.7 MG/DL (40-230); LDH LACTATE DEHYDROGENASE 335 U/L (87-241); MAGNESIUM LEVEL 2.6 MG/DL (1.8-2.4); PHOSPHORUS LEVEL 2.3 MG/DL (2.5-4.9); POTASSIUM SERUM 3.5 MEQ/L (3.5-5.1); SODIUM LEVEL 156 MEQ/L (136-145); TOTAL PROTEIN 4.9 GM/DL (6.4-8.2); TRIGLYCERIDES LEVEL 273 MG/DL (<150)
[2017-04-17 09:14] LABS: VANCOMYCIN LEVEL TROUGH 8.5 UG/ML (10.0-20.0)
[2017-04-17] MEDS: PANTOPRAZOLE 40MG INJ (PROTONIX) (C9113) IV (09:46)
[2017-04-17] MEDS: CEFTRIAXONE SOD 2 GM in APPROPRIATE DILUENT 1 EA IV ×2 (09:46→21:26)
[2017-04-17] MEDS: VANCOMYCIN HCL 1,000 MG, VIAL MATE ADAPTER 1 EACH in D5W 250 ML IV (09:46)
[2017-04-17] MEDS: NICOTINE 21MG/24HR 1 EA TRANSDERMAL TD (09:46)
[2017-04-17] MEDS: CHLORHEXIDINE ORAL RINSE 0.12%/15ML 120ML BOTTLE MT ×2 (09:46→21:26)
[2017-04-17 10:05] LABS: HIV 1&2 SCREEN CENTAUR NEGATIVE (NEGATIVE)
[2017-04-17 10:35] LABS: CPK CREATINE PHOSPHOKINASE 820 U/L (39-308)
[2017-04-17 10:36] LABS: CK-MB VALUE MASS 6.9 NG/ML (0.0-3.6); MB/CK RELATIVE INDEX 0.84 (< OR =4)
[2017-04-17 10:37] LABS: TROPONIN I 1.88 NG/ML (< 0.10)
[2017-04-17] MEDS: D5W 1,000 ML IV ×3 (10:41→22:38)
[2017-04-17 11:29] LABS: BEDSIDE GLUCOSE 229 MG/DL (70-105)
[2017-04-17 17:28] LABS: BEDSIDE GLUCOSE 237 MG/DL (70-105)
[2017-04-17] MEDS: PROPOFOL 1,000 MG in APPROPRIATE DILUENT 1 EA IV (18:39)
[2017-04-17] MEDS ORDERED: VANCOMYCIN HCL 1,000 MG, VIAL MATE ADAPTER 1 EACH in D5W 250 ML IV (21:00)
[2017-04-18 00:04] LABS: BEDSIDE GLUCOSE 252 MG/DL (70-105)
[2017-04-18] MEDS: ALBUTEROL SULFATE 2.5 MG/0.5 ML INH NEB SOLN NEB ×6 (00:31→19:59)
[2017-04-18] MEDS: dexameTHASONE 20 MG/5 ML VIAL (J1100) IV ×4 (05:02→23:29)
[2017-04-18] MEDS: D5W 1,000 ML IV (05:41)
[2017-04-18] MEDS: levETIRAcetam INJection 500 MG in D5W 100 ML IV ×2 (05:57→18:32)
[2017-04-18] MEDS: HumaLOG INSULIN (NovoLOG) PER UNIT SC ×4 (05:57→23:44)
[2017-04-18] MEDS: SLF 3 ML SYR IV ×3 (05:57→21:25)
[2017-04-18] MEDS: SODIUM CHLORIDE 0.9% INJ 10 ML SYR IV ×3 (06:00→21:25)
[2017-04-18 06:04] LABS: ABG BASE EXCESS -2.2 (-2.0-2.0); ABG O2 SATURATION 98.9 % (95.0-99.0); ABG PARTIAL PRESSURE CO2 26.7 mmHg (35.0-45.0); ABG PARTIAL PRESSURE O2 148.2 mmHg (75.0-100.0); ABG STANDARD HCO3 22.7 MEQ/L (22.0-26.0); ABG TOTAL CO2 20.8 MEQ/L (22.0-29.0); ABG pH (ARTERIAL) 7.492 UNITS (7.350-7.450)
[2017-04-18 06:10] LABS: BASO # 0.1 10^3/uL (0.0-0.2); BASO % 0.2 % (0.0-1.0); HEMATOCRIT 30.6 % (42.0-52.0); HEMOGLOBIN 10.6 g/dl (14.0-18.0); IMMATURE GRANULOCYTE # 0.5 10^3/uL (0-0); IMMATURE GRANULOCYTE % 1.3 % (0-0); LYMPH # 1.3 10^3/uL (1.5-4.5); LYMPH % 3.7 % (24.0-44.0); MEAN CORPUSCULAR HEMOGLOBIN 29.6 pg (27.0-33.0); MEAN CORPUSCULAR HGB CONC 34.6 g/dl (32.0-36.5); MEAN CORPUSCULAR VOLUME 85.5 fl (80.0-96.0); MONO % 6.3 % (0.0-5.0); NEUTROPHILS % 88.5 % (36.0-66.0); RED BLOOD COUNT 3.58 10^6/uL (4.30-6.10); RED CELL DISTRIBUTION WIDTH 15.7 % (11.5-14.5)
[2017-04-18 06:11] LABS: BEDSIDE GLUCOSE 174 MG/DL (70-105)
[2017-04-18 06:11] LABS: MONO # 2.2 10^3/uL (0.0-0.8); POS COUNT POS FLAG; POSITIVE DIFF POS FLAG
[2017-04-18 06:14] LABS: PLATELET COUNT, AUTOMATED 38 10^3/uL (150-450)
[2017-04-18 06:22] LABS: C REACTIVE PROTEIN QUANTITATIV 3.95 MG/DL (0.00-0.30)
[2017-04-18 06:27] LABS: ALBUMIN 1.7 GM/DL (3.2-5.2); ALBUMIN/GLOBULIN RATIO 0.55 (1.00-1.93); ALKALINE PHOSPHATASE 106 U/L (45-117); ALT/SGPT 29 U/L (12-78); ANION GAP 9 MEQ/L (8-16); AST/SGOT 27 U/L (7-37); BILIRUBIN,TOTAL 0.3 MG/DL (0.2-1.0); BLOOD UREA NITROGEN 37 MG/DL (7-18); CALCIUM LEVEL 6.6 MG/DL (8.5-10.1); CARBON DIOXIDE LEVEL 23 MEQ/L (21-32); CHLORIDE LEVEL 118 MEQ/L (98-107); CHOLESTEROL LEVEL 77 MG/DL (< 200); CPK CREATINE PHOSPHOKINASE 493 U/L (39-308); CREATININE FOR GFR 0.73 MG/DL (0.70-1.30); GLOMERULAR FILTRATION RATE > 60.0 (>56); GLUCOSE, FASTING 173 MG/DL (70-105); LDH LACTATE DEHYDROGENASE 326 U/L (87-241); MAGNESIUM LEVEL 2.3 MG/DL (1.8-2.4); PHOSPHORUS LEVEL 1.7 MG/DL (2.5-4.9); POTASSIUM SERUM 3.3 MEQ/L (3.5-5.1); SODIUM LEVEL 150 MEQ/L (136-145); TOTAL PROTEIN 4.8 GM/DL (6.4-8.2); TRIGLYCERIDES LEVEL 218 MG/DL (<150)
[2017-04-18] MEDS: NOREPINEPHRINE BITARTRATE 8 MG in D5W 492 ML IV (08:28)
[2017-04-18] MEDS: PANTOPRAZOLE 40MG INJ (PROTONIX) (C9113) IV (08:34)
[2017-04-18] MEDS: CHLORHEXIDINE ORAL RINSE 0.12%/15ML 120ML BOTTLE MT ×2 (08:34→21:26)
[2017-04-18] MEDS: NICOTINE 21MG/24HR 1 EA TRANSDERMAL TD (08:34)
[2017-04-18] MEDS: CEFTRIAXONE SOD 2 GM in APPROPRIATE DILUENT 1 EA IV ×2 (08:41→21:25)
[2017-04-18] MEDS: POTASSIUM CHLORIDE 10% LIQ 20 MEQ/15 ML UDC PO (09:48)
[2017-04-18] MEDS: PROPOFOL 1,000 MG in APPROPRIATE DILUENT 1 EA IV ×2 (10:24→23:30)
[2017-04-18] MEDS: KCL 20MEQ IN D5W 1000ML 1,000 ML IV ×3 (10:44→23:59)
[2017-04-18 12:38] LABS: BEDSIDE GLUCOSE 235 MG/DL (70-105)
[2017-04-18 17:42] LABS: BEDSIDE GLUCOSE 212 MG/DL (70-105)
[2017-04-19 00:24] LABS: BEDSIDE GLUCOSE 174 MG/DL (70-105)
[2017-04-19] MEDS: ALBUTEROL SULFATE 2.5 MG/0.5 ML INH NEB SOLN NEB ×6 (00:25→20:09)
[2017-04-19] MEDS: dexameTHASONE 20 MG/5 ML VIAL (J1100) IV ×4 (05:35→22:16)
[2017-04-19] MEDS: SODIUM CHLORIDE 0.9% INJ 10 ML SYR IV ×3 (05:36→21:44)
[2017-04-19] MEDS: SLF 3 ML SYR IV ×3 (05:36→21:44)
[2017-04-19] MEDS: HumaLOG INSULIN (NovoLOG) PER UNIT SC ×3 (05:36→17:19)
[2017-04-19 05:54] LABS: ABG BASE EXCESS 1.4 (-2.0-2.0); ABG O2 SATURATION 98.9 % (95.0-99.0); ABG PARTIAL PRESSURE CO2 27.5 mmHg (35.0-45.0); ABG PARTIAL PRESSURE O2 140.3 mmHg (75.0-100.0); ABG STANDARD HCO3 25.7 MEQ/L (22.0-26.0); ABG TOTAL CO2 23.8 MEQ/L (22.0-29.0)
[2017-04-19 06:02] LABS: BEDSIDE GLUCOSE 187 MG/DL (70-105)
[2017-04-19] MEDS: levETIRAcetam INJection 500 MG in D5W 100 ML IV ×2 (06:34→18:18)
[2017-04-19 06:42] LABS: HEMATOCRIT 33.7 % (42.0-52.0); HEMOGLOBIN 11.6 g/dl (14.0-18.0); MEAN CORPUSCULAR HEMOGLOBIN 29.4 pg (27.0-33.0); MEAN CORPUSCULAR HGB CONC 34.4 g/dl (32.0-36.5); MEAN CORPUSCULAR VOLUME 85.5 fl (80.0-96.0); RED BLOOD COUNT 3.94 10^6/uL (4.30-6.10); RED CELL DISTRIBUTION WIDTH 15.3 % (11.5-14.5)
[2017-04-19 06:45] LABS: PLATELET COUNT, AUTOMATED 54 10^3/uL (150-450); POS COUNT POS FLAG; POSITIVE DIFF POS FLAG; WHITE BLOOD COUNT 31.4 10^3/uL (4.0-10.0)
[2017-04-19 06:46] LABS: ADD MANUAL DIFFER YES; DIFF SLIDE NUMBER 18
[2017-04-19 06:47] LABS: IMMATURE PLATELET FRACTION % 26.9 % (0.0-10.9)
[2017-04-19 07:02] LABS: ALBUMIN 1.8 GM/DL (3.2-5.2); ALBUMIN/GLOBULIN RATIO 0.53 (1.00-1.93); ALKALINE PHOSPHATASE 108 U/L (45-117); ALT/SGPT 65 U/L (12-78); ANION GAP 6 MEQ/L (8-16); AST/SGOT 77 U/L (7-37); BILIRUBIN,TOTAL 0.5 MG/DL (0.2-1.0); BLOOD UREA NITROGEN 32 MG/DL (7-18); C REACTIVE PROTEIN QUANTITATIV 1.61 MG/DL (0.00-0.30); CALCIUM LEVEL 7.1 MG/DL (8.5-10.1); CARBON DIOXIDE LEVEL 25 MEQ/L (21-32); CHLORIDE LEVEL 115 MEQ/L (98-107); CHOLESTEROL LEVEL 98 MG/DL (< 200); CPK CREATINE PHOSPHOKINASE 274 U/L (39-308); CREATININE FOR GFR 0.66 MG/DL (0.70-1.30); GLOMERULAR FILTRATION RATE > 60.0 (>56); GLUCOSE, FASTING 160 MG/DL (70-105); LDH LACTATE DEHYDROGENASE 450 U/L (87-241); MAGNESIUM LEVEL 2.2 MG/DL (1.8-2.4); PHOSPHORUS LEVEL 1.8 MG/DL (2.5-4.9); POTASSIUM SERUM 4.7 MEQ/L (3.5-5.1); SODIUM LEVEL 146 MEQ/L (136-145); TOTAL PROTEIN 5.2 GM/DL (6.4-8.2); TRIGLYCERIDES LEVEL 179 MG/DL (<150)
[2017-04-19 07:14] LABS: LYMPHOCYTES 15 % (16-52); MONOCYTES 7 % (0-8); NEUTROPHILS 78 % (35-75); PLATELET ESTIMATE DECREASED (NORMAL)
[2017-04-19] MEDS: KCL 20MEQ IN D5W 1000ML 1,000 ML IV ×2 (07:42→17:19)
[2017-04-19] MEDS: CHLORHEXIDINE ORAL RINSE 0.12%/15ML 120ML BOTTLE MT ×2 (08:23→21:45)
[2017-04-19] MEDS: PANTOPRAZOLE 40MG INJ (PROTONIX) (C9113) IV (08:23)
[2017-04-19] MEDS: CEFTRIAXONE SOD 2 GM in APPROPRIATE DILUENT 1 EA IV ×2 (09:00→21:44)
[2017-04-19] MEDS: BISACODYL 10 MG SUPP PR (09:43)
[2017-04-19 12:38] LABS: BEDSIDE GLUCOSE 175 MG/DL (70-105)
[2017-04-19] MEDS: FLUCONAZOLE 100 MG in APPROPRIATE DILUENT 1 EA IV (13:01)
[2017-04-19 17:12] LABS: BEDSIDE GLUCOSE 161 MG/DL (70-105)
[2017-04-20] MEDS: ALBUTEROL SULFATE 2.5 MG/0.5 ML INH NEB SOLN NEB ×7 (00:02→23:33)
[2017-04-20] MEDS: HumaLOG INSULIN (NovoLOG) PER UNIT SC ×5 (00:29→23:45)
[2017-04-20 00:32] LABS: BEDSIDE GLUCOSE 205 MG/DL (70-105)
[2017-04-20] MEDS: dexameTHASONE 20 MG/5 ML VIAL (J1100) IV ×4 (05:04→23:46)
[2017-04-20] MEDS: KCL 20MEQ IN D5W 1000ML 1,000 ML IV ×2 (05:36→18:10)
[2017-04-20] MEDS: SLF 3 ML SYR IV (05:41)
[2017-04-20] MEDS: SODIUM CHLORIDE 0.9% INJ 10 ML SYR IV ×3 (05:41→21:09)
[2017-04-20 05:45] LABS: ABG BASE EXCESS -0.4 (-2.0-2.0); ABG HCO3 20.7 MEQ/L (22.0-26.0); ABG O2 SATURATION 99.1 % (95.0-99.0); ABG PARTIAL PRESSURE CO2 24.2 mmHg (35.0-45.0); ABG PARTIAL PRESSURE O2 172.2 mmHg (75.0-100.0); ABG STANDARD HCO3 24.2 MEQ/L (22.0-26.0); ABG TOTAL CO2 21.4 MEQ/L (22.0-29.0); ABG pH (ARTERIAL) 7.549 UNITS (7.350-7.450)
[2017-04-20 05:46] LABS: BEDSIDE GLUCOSE 190 MG/DL (70-105)
[2017-04-20 06:18] LABS: BASO % 0.2 % (0.0-1.0); HEMATOCRIT 33.3 % (42.0-52.0); HEMOGLOBIN 11.4 g/dl (14.0-18.0); IMMATURE GRANULOCYTE # 0.2 10^3/uL (0-0); IMMATURE GRANULOCYTE % 0.8 % (0-0); LYMPH # 0.9 10^3/uL (1.5-4.5); LYMPH % 3.7 % (24.0-44.0); MEAN CORPUSCULAR HEMOGLOBIN 29.4 pg (27.0-33.0); MEAN CORPUSCULAR HGB CONC 34.2 g/dl (32.0-36.5); MEAN CORPUSCULAR VOLUME 85.8 fl (80.0-96.0); NEUTROPHILS # 21.8 10^3/uL (1.8-7.7); NEUTROPHILS % 86.3 % (36.0-66.0); RED BLOOD COUNT 3.88 10^6/uL (4.30-6.10); RED CELL DISTRIBUTION WIDTH 15.6 % (11.5-14.5); WHITE BLOOD COUNT 25.2 10^3/uL (4.0-10.0)
[2017-04-20 06:26] LABS: MONO # 2.3 10^3/uL (0.0-0.8); PLATELET COUNT, AUTOMATED 78 10^3/uL (150-450); POSITIVE DIFF POS FLAG
[2017-04-20 06:30] LABS: IMMATURE PLATELET FRACTION % 25.8 % (0.0-10.9)
[2017-04-20 06:39] LABS: ALBUMIN 1.6 GM/DL (3.2-5.2); ALBUMIN/GLOBULIN RATIO 0.44 (1.00-1.93); ALKALINE PHOSPHATASE 94 U/L (45-117); ALT/SGPT 129 U/L (12-78); ANION GAP 7 MEQ/L (8-16); AST/SGOT 80 U/L (7-37); BILIRUBIN,TOTAL 0.5 MG/DL (0.2-1.0); BLOOD UREA NITROGEN 32 MG/DL (7-18); CALCIUM LEVEL 7.6 MG/DL (8.5-10.1); CARBON DIOXIDE LEVEL 27 MEQ/L (21-32); CHLORIDE LEVEL 112 MEQ/L (98-107); CHOLESTEROL LEVEL 119 MG/DL (< 200); CPK CREATINE PHOSPHOKINASE 122 U/L (39-308); CREATININE FOR GFR 0.57 MG/DL (0.70-1.30); GLOMERULAR FILTRATION RATE > 60.0 (>56); GLUCOSE, FASTING 201 MG/DL (70-105); LDH LACTATE DEHYDROGENASE 384 U/L (87-241); MAGNESIUM LEVEL 2.3 MG/DL (1.8-2.4); PHOSPHORUS LEVEL 2.3 MG/DL (2.5-4.9); POTASSIUM SERUM 5.1 MEQ/L (3.5-5.1); SODIUM LEVEL 146 MEQ/L (136-145); TOTAL PROTEIN 5.2 GM/DL (6.4-8.2); TRIGLYCERIDES LEVEL 176 MG/DL (<150)
[2017-04-20] MEDS: levETIRAcetam INJection 500 MG in D5W 100 ML IV ×2 (06:41→18:13)
[2017-04-20] MEDS: PANTOPRAZOLE 40MG INJ (PROTONIX) (C9113) IV (08:47)
[2017-04-20] MEDS: MORPHINE 2 MG/ML 1ML SYRINGE (J2270) IV ×3 (08:47→16:20)
[2017-04-20] MEDS: CEFTRIAXONE SOD 2 GM in APPROPRIATE DILUENT 1 EA IV ×2 (08:47→21:05)
[2017-04-20] MEDS: CHLORHEXIDINE ORAL RINSE 0.12%/15ML 120ML BOTTLE MT ×2 (08:48→21:05)
[2017-04-20] MEDS: FLUCONAZOLE 100 MG in APPROPRIATE DILUENT 1 EA IV (13:32)
[2017-04-20 18:25] LABS: BEDSIDE GLUCOSE 185 MG/DL (70-105)
[2017-04-20 23:47] LABS: BEDSIDE GLUCOSE 233 MG/DL (70-105)
[2017-04-21] MEDS: ALBUTEROL SULFATE 2.5 MG/0.5 ML INH NEB SOLN NEB ×6 (03:24→23:31)
[2017-04-21] MEDS: dexameTHASONE 20 MG/5 ML VIAL (J1100) IV (05:43)
[2017-04-21] MEDS: SODIUM CHLORIDE 0.9% INJ 10 ML SYR IV ×3 (05:45→22:14)
[2017-04-21] MEDS: HumaLOG INSULIN (NovoLOG) PER UNIT SC (05:45)
[2017-04-21 06:01] LABS: BASO # 0.1 10^3/uL (0.0-0.2); BASO % 0.2 % (0.0-1.0); HEMATOCRIT 33.8 % (42.0-52.0); HEMOGLOBIN 11.5 g/dl (14.0-18.0); IMMATURE GRANULOCYTE # 0.3 10^3/uL (0-0); IMMATURE GRANULOCYTE % 0.8 % (0-0); LYMPH # 1.2 10^3/uL (1.5-4.5); LYMPH % 3.8 % (24.0-44.0); MEAN CORPUSCULAR HEMOGLOBIN 29.8 pg (27.0-33.0); MEAN CORPUSCULAR VOLUME 87.6 fl (80.0-96.0); MONO % 8.2 % (0.0-5.0); PLATELET COUNT, AUTOMATED 113 10^3/uL (150-450); RED BLOOD COUNT 3.86 10^6/uL (4.30-6.10); RED CELL DISTRIBUTION WIDTH 15.9 % (11.5-14.5)
[2017-04-21 06:04] LABS: MONO # 2.6 10^3/uL (0.0-0.8); NEUTROPHILS # 27.3 10^3/uL (1.8-7.7); POS COUNT POS FLAG; POSITIVE DIFF POS FLAG; POSITIVE MORPH POS FLAG; WHITE BLOOD COUNT 31.4 10^3/uL (4.0-10.0)
[2017-04-21 06:15] LABS: ABG BASE EXCESS 2.6 (-2.0-2.0); ABG HCO3 25.1 MEQ/L (22.0-26.0); ABG O2 SATURATION 98.9 % (95.0-99.0); ABG PARTIAL PRESSURE CO2 32.2 mmHg (35.0-45.0); ABG STANDARD HCO3 26.8 MEQ/L (22.0-26.0); ABG TOTAL CO2 26.1 MEQ/L (22.0-29.0)
[2017-04-21] MEDS: KCL 20MEQ IN D5W 1000ML 1,000 ML IV (06:32)
[2017-04-21] MEDS: levETIRAcetam INJection 500 MG in D5W 100 ML IV ×2 (06:32→18:14)
[2017-04-21 06:36] LABS: ALBUMIN 1.7 GM/DL (3.2-5.2); ALBUMIN/GLOBULIN RATIO 0.49 (1.00-1.93); ALKALINE PHOSPHATASE 111 U/L (45-117); ALT/SGPT 261 U/L (12-78); ANION GAP 7 MEQ/L (8-16); AST/SGOT 130 U/L (7-37); BILIRUBIN,TOTAL 0.6 MG/DL (0.2-1.0); BLOOD UREA NITROGEN 31 MG/DL (7-18); CALCIUM LEVEL 7.4 MG/DL (8.5-10.1); CARBON DIOXIDE LEVEL 27 MEQ/L (21-32); CHLORIDE LEVEL 110 MEQ/L (98-107); CHOLESTEROL LEVEL 133 MG/DL (< 200); CPK CREATINE PHOSPHOKINASE 57 U/L (39-308); CREATININE FOR GFR 0.51 MG/DL (0.70-1.30); GLOMERULAR FILTRATION RATE > 60.0 (>56); GLUCOSE, FASTING 184 MG/DL (70-100); LDH LACTATE DEHYDROGENASE 410 U/L (87-241); MAGNESIUM LEVEL 2.4 MG/DL (1.8-2.4); PHOSPHORUS LEVEL 2.6 MG/DL (2.5-4.9); SODIUM LEVEL 144 MEQ/L (136-145); TOTAL PROTEIN 5.2 GM/DL (6.4-8.2); TRIGLYCERIDES LEVEL 166 MG/DL (<150)
[2017-04-21 06:43] LABS: POTASSIUM SERUM 5.2 MEQ/L (3.5-5.1)
[2017-04-21] MEDS: MORPHINE 2 MG/ML 1ML SYRINGE (J2270) IV (08:04)
[2017-04-21] MEDS: PANTOPRAZOLE 40MG INJ (PROTONIX) (C9113) IV (08:04)
[2017-04-21] MEDS: CHLORHEXIDINE ORAL RINSE 0.12%/15ML 120ML BOTTLE MT (08:04)
[2017-04-21] MEDS: CEFTRIAXONE SOD 2 GM in APPROPRIATE DILUENT 1 EA IV ×2 (09:48→22:12)
[2017-04-21] MEDS: dexameTHASONE 4 MG/ML 1ML VIAL (J1100) IV ×3 (11:24→22:13)
[2017-04-21 13:22] LABS: BEDSIDE GLUCOSE 35 MG/DL (70-105)
[2017-04-21 13:22] LABS: BEDSIDE GLUCOSE 183 MG/DL (70-105)
[2017-04-21 13:23] LABS: BEDSIDE GLUCOSE 224 MG/DL (70-105)
[2017-04-22 00:06] LABS: HEPARIN INDUCED PLATELET ABY 0.294 OD (0.000-0.400)
[2017-04-22] MEDS: MORPHINE 2 MG/ML 1ML SYRINGE (J2270) IV (04:06)
[2017-04-22] MEDS: dexameTHASONE 4 MG/ML 1ML VIAL (J1100) IV ×3 (04:06→17:12)
[2017-04-22] MEDS: ALBUTEROL SULFATE 2.5 MG/0.5 ML INH NEB SOLN NEB ×5 (04:14→20:00)
[2017-04-22 05:25] LABS: HEMATOCRIT 33.9 % (42.0-52.0); HEMOGLOBIN 11.5 g/dl (14.0-18.0); MEAN CORPUSCULAR HEMOGLOBIN 29.2 pg (27.0-33.0); MEAN CORPUSCULAR HGB CONC 33.9 g/dl (32.0-36.5); PLATELET COUNT, AUTOMATED 147 10^3/uL (150-450); RED BLOOD COUNT 3.94 10^6/uL (4.30-6.10); RED CELL DISTRIBUTION WIDTH 15.5 % (11.5-14.5); WHITE BLOOD COUNT 28.4 10^3/uL (4.0-10.0)
[2017-04-22 05:28] LABS: ADD MANUAL DIFFER YES; DIFF SLIDE NUMBER 2; POSITIVE DIFF POS FLAG; POSITIVE MORPH POS FLAG
[2017-04-22 05:50] LABS: LYMPHOCYTES 2 % (16-52); MONOCYTES 8 % (0-8); NEUTROPHILS 90 % (35-75)
[2017-04-22 05:51] LABS: PLATELET ESTIMATE NORMAL (NORMAL)
[2017-04-22 05:52] LABS: ANISOCYTOSIS 1+
[2017-04-22 05:56] LABS: ALBUMIN 1.7 GM/DL (3.2-5.2); ALBUMIN/GLOBULIN RATIO 0.49 (1.00-1.93); ALKALINE PHOSPHATASE 107 U/L (45-117); ALT/SGPT 242 U/L (12-78); ANION GAP 9 MEQ/L (8-16); AST/SGOT 60 U/L (7-37); BILIRUBIN,TOTAL 0.5 MG/DL (0.2-1.0); BLOOD UREA NITROGEN 31 MG/DL (7-18); CALCIUM LEVEL 7.3 MG/DL (8.5-10.1); CARBON DIOXIDE LEVEL 26 MEQ/L (21-32); CHLORIDE LEVEL 105 MEQ/L (98-107); CHOLESTEROL LEVEL 148 MG/DL (< 200); CPK CREATINE PHOSPHOKINASE 50 U/L (39-308); CREATININE FOR GFR 0.53 MG/DL (0.70-1.30); GLOMERULAR FILTRATION RATE > 60.0 (>56); GLUCOSE, FASTING 104 MG/DL (70-100); LDH LACTATE DEHYDROGENASE 341 U/L (87-241); MAGNESIUM LEVEL 2.1 MG/DL (1.8-2.4); PHOSPHORUS LEVEL 3.7 MG/DL (2.5-4.9); SODIUM LEVEL 140 MEQ/L (136-145); TOTAL PROTEIN 5.2 GM/DL (6.4-8.2); TRIGLYCERIDES LEVEL 204 MG/DL (<150)
[2017-04-22 05:59] LABS: POTASSIUM SERUM 5.2 MEQ/L (3.5-5.1)
[2017-04-22] MEDS: SODIUM CHLORIDE 0.9% INJ 10 ML SYR IV ×3 (05:59→22:00)
[2017-04-22] MEDS: levETIRAcetam INJection 500 MG in D5W 100 ML IV (06:00)
[2017-04-22 06:24] LABS: ABG BASE EXCESS -0.7 (-2.0-2.0); ABG HCO3 22.3 MEQ/L (22.0-26.0); ABG O2 SATURATION 97.7 % (95.0-99.0); ABG PARTIAL PRESSURE CO2 31.6 mmHg (35.0-45.0); ABG PARTIAL PRESSURE O2 93.1 mmHg (75.0-100.0); ABG STANDARD HCO3 23.9 MEQ/L (22.0-26.0); ABG TOTAL CO2 23.2 MEQ/L (22.0-29.0); ABG pH (ARTERIAL) 7.466 UNITS (7.350-7.450)
[2017-04-22] MEDS: PANTOPRAZOLE 40MG INJ (PROTONIX) (C9113) IV (08:30)
[2017-04-22] MEDS: ASPIRIN 81 MG ENTERIC TAB PO (08:37)
[2017-04-22] MEDS: CEFTRIAXONE SOD 2 GM in APPROPRIATE DILUENT 1 EA IV ×2 (09:53→22:00)
[2017-04-22] MEDS: levETIRAcetam 250MG TABLET (KEPPRA) PO (22:00)
[2017-04-23] MEDS: dexameTHASONE 4 MG/ML 1ML VIAL (J1100) IV ×2 (00:19→04:27)
[2017-04-23] MEDS: ALBUTEROL SULFATE 2.5 MG/0.5 ML INH NEB SOLN NEB ×6 (00:46→23:15)
[2017-04-23] MEDS: SODIUM CHLORIDE 0.9% INJ 10 ML SYR IV ×3 (04:27→21:43)
[2017-04-23 05:05] LABS: ALBUMIN 1.8 GM/DL (3.2-5.2); ALBUMIN/GLOBULIN RATIO 0.58 (1.00-1.93); ALKALINE PHOSPHATASE 101 U/L (45-117); ALT/SGPT 183 U/L (12-78); ANION GAP 7 MEQ/L (8-16); AST/SGOT 38 U/L (7-37); BILIRUBIN,TOTAL 0.3 MG/DL (0.2-1.0); BLOOD UREA NITROGEN 32 MG/DL (7-18); CALCIUM LEVEL 6.8 MG/DL (8.5-10.1); CARBON DIOXIDE LEVEL 24 MEQ/L (21-32); CHLORIDE LEVEL 108 MEQ/L (98-107); CHOLESTEROL LEVEL 167 MG/DL (< 200); CPK CREATINE PHOSPHOKINASE 51 U/L (39-308); CREATININE FOR GFR 0.46 MG/DL (0.70-1.30); GLOMERULAR FILTRATION RATE > 60.0 (>56); GLUCOSE, FASTING 105 MG/DL (70-100); LDH LACTATE DEHYDROGENASE 307 U/L (87-241); MAGNESIUM LEVEL 2.1 MG/DL (1.8-2.4); PHOSPHORUS LEVEL 3.4 MG/DL (2.5-4.9); SODIUM LEVEL 139 MEQ/L (136-145); TOTAL PROTEIN 4.9 GM/DL (6.4-8.2); TRIGLYCERIDES LEVEL 195 MG/DL (<150)
[2017-04-23 06:55] LABS: HEMATOCRIT 33.3 % (42.0-52.0); HEMOGLOBIN 11.5 g/dl (14.0-18.0); MEAN CORPUSCULAR HEMOGLOBIN 29.3 pg (27.0-33.0); MEAN CORPUSCULAR HGB CONC 34.5 g/dl (32.0-36.5); MEAN CORPUSCULAR VOLUME 84.7 fl (80.0-96.0); PLATELET COUNT, AUTOMATED 201 10^3/uL (150-450); RED BLOOD COUNT 3.93 10^6/uL (4.30-6.10); RED CELL DISTRIBUTION WIDTH 15.1 % (11.5-14.5); WHITE BLOOD COUNT 25.2 10^3/uL (4.0-10.0)
[2017-04-23] MEDS: PANTOPRAZOLE 40MG INJ (PROTONIX) (C9113) IV (09:25)
[2017-04-23] MEDS: levETIRAcetam 250MG TABLET (KEPPRA) PO ×2 (09:25→21:43)
[2017-04-23] MEDS: CEFTRIAXONE SOD 2 GM in APPROPRIATE DILUENT 1 EA IV ×2 (09:25→21:43)
[2017-04-23] MEDS: ASPIRIN 81 MG ENTERIC TAB PO (09:26)
[2017-04-23] MEDS: PERCOCET 5MG/325MG TAB PO ×2 (11:18→22:04)
[2017-04-23] MEDS: FUROSEMIDE 20 MG/2 ML VIAL (J1940) IV (11:18)
[2017-04-24] MEDS: ALBUTEROL SULFATE 2.5 MG/0.5 ML INH NEB SOLN NEB ×6 (04:00→20:00)
[2017-04-24] MEDS: PERCOCET 5MG/325MG TAB PO ×2 (04:04→21:19)
[2017-04-24] MEDS: SODIUM CHLORIDE 0.9% INJ 10 ML SYR IV ×4 (04:05→21:18)
[2017-04-24 04:30] LABS: HEMATOCRIT 34.6 % (42.0-52.0); HEMOGLOBIN 11.8 g/dl (14.0-18.0); MEAN CORPUSCULAR HEMOGLOBIN 29.4 pg (27.0-33.0); MEAN CORPUSCULAR HGB CONC 34.1 g/dl (32.0-36.5); MEAN CORPUSCULAR VOLUME 86.3 fl (80.0-96.0); PLATELET COUNT, AUTOMATED 222 10^3/uL (150-450); RED BLOOD COUNT 4.01 10^6/uL (4.30-6.10); RED CELL DISTRIBUTION WIDTH 14.8 % (11.5-14.5)
[2017-04-24 04:39] LABS: POS COUNT POS FLAG; WHITE BLOOD COUNT 39.7 10^3/uL (4.0-10.0)
[2017-04-24 04:58] LABS: ALBUMIN 1.7 GM/DL (3.2-5.2); ALBUMIN/GLOBULIN RATIO 0.53 (1.00-1.93); ALKALINE PHOSPHATASE 100 U/L (45-117); ALT/SGPT 138 U/L (12-78); ANION GAP 8 MEQ/L (8-16); AST/SGOT 28 U/L (7-37); BILIRUBIN,TOTAL 0.4 MG/DL (0.2-1.0); BLOOD UREA NITROGEN 29 MG/DL (7-18); CARBON DIOXIDE LEVEL 24 MEQ/L (21-32); CHLORIDE LEVEL 107 MEQ/L (98-107); CREATININE FOR GFR 0.54 MG/DL (0.70-1.30); GLOMERULAR FILTRATION RATE > 60.0 (>56); GLUCOSE, FASTING 103 MG/DL (70-100); SODIUM LEVEL 139 MEQ/L (136-145); TOTAL PROTEIN 4.9 GM/DL (6.4-8.2)
[2017-04-24] MEDS: ASPIRIN 81 MG ENTERIC TAB PO (09:22)
[2017-04-24] MEDS: PANTOPRAZOLE 40MG INJ (PROTONIX) (C9113) IV (09:22)
[2017-04-24] MEDS: levETIRAcetam 250MG TABLET (KEPPRA) PO ×2 (09:22→21:18)
[2017-04-24] MEDS: FUROSEMIDE 20 MG/2 ML VIAL (J1940) IV (09:23)
[2017-04-24] MEDS: CEFTRIAXONE SOD 2 GM in APPROPRIATE DILUENT 1 EA IV ×2 (09:24→21:17)
[2017-04-24 12:04] LABS: BEDSIDE GLUCOSE 120 MG/DL (70-105)
[2017-04-24] MEDS: ENOXAPARIN 40 MG/0.4 ML SYRINGE (J1650) SC (12:13)
[2017-04-24 13:53] LABS: REASON FOR REVIEW COMPREHENSIVE REVIEW; SLIDE REVIEW Report; SOURCE PERIPHERAL SMEAR
[2017-04-24] MEDS ORDERED: SODIUM CHLORIDE 0.9% INJ 10 ML SYR IV (19:45)
[2017-04-24] MEDS: ATORVASTATIN 20 MG TAB PO (21:17)
[2017-04-24] MEDS: ENOXAPARIN 100MG/1ML SYRINGE (J1650) SC (21:17)
[2017-04-25] MEDS: ALBUTEROL SULFATE 2.5 MG/0.5 ML INH NEB SOLN NEB ×7 (00:51→23:25)
[2017-04-25] MEDS: PERCOCET 5MG/325MG TAB PO ×3 (05:00→23:36)
[2017-04-25] MEDS: SODIUM CHLORIDE 0.9% INJ 10 ML SYR IV ×6 (05:00→22:28)
[2017-04-25 06:00] LABS: HEMATOCRIT 30.1 % (42.0-52.0); HEMOGLOBIN 10.3 g/dl (14.0-18.0); MEAN CORPUSCULAR HEMOGLOBIN 29.1 pg (27.0-33.0); MEAN CORPUSCULAR HGB CONC 34.2 g/dl (32.0-36.5); PLATELET COUNT, AUTOMATED 228 10^3/uL (150-450); RED BLOOD COUNT 3.54 10^6/uL (4.30-6.10); RED CELL DISTRIBUTION WIDTH 14.9 % (11.5-14.5)
[2017-04-25 06:05] LABS: POS COUNT POS FLAG
[2017-04-25 06:06] LABS: WHITE BLOOD COUNT 31.9 10^3/uL (4.0-10.0)
[2017-04-25 06:25] LABS: ALBUMIN 1.5 GM/DL (3.2-5.2); ALBUMIN/GLOBULIN RATIO 0.47 (1.00-1.93); ALKALINE PHOSPHATASE 90 U/L (45-117); ALT/SGPT 77 U/L (12-78); ANION GAP 9 MEQ/L (8-16); AST/SGOT 16 U/L (7-37); BILIRUBIN,TOTAL 0.4 MG/DL (0.2-1.0); BLOOD UREA NITROGEN 25 MG/DL (7-18); CARBON DIOXIDE LEVEL 26 MEQ/L (21-32); CHLORIDE LEVEL 104 MEQ/L (98-107); CREATININE FOR GFR 0.65 MG/DL (0.70-1.30); GLOMERULAR FILTRATION RATE > 60.0 (>56); GLUCOSE, FASTING 80 MG/DL (70-100); POTASSIUM SERUM 3.6 MEQ/L (3.5-5.1); SODIUM LEVEL 139 MEQ/L (136-145); TOTAL PROTEIN 4.7 GM/DL (6.4-8.2)
[2017-04-25] MEDS: ASPIRIN 81 MG ENTERIC TAB PO (08:19)
[2017-04-25] MEDS: levETIRAcetam 250MG TABLET (KEPPRA) PO ×2 (08:19→20:36)
[2017-04-25] MEDS: PANTOPRAZOLE 40MG INJ (PROTONIX) (C9113) IV (08:19)
[2017-04-25] MEDS: CEFTRIAXONE SOD 2 GM in APPROPRIATE DILUENT 1 EA IV ×2 (10:41→22:28)
[2017-04-25] MEDS: BISACODYL 10 MG SUPP PR (14:54)
[2017-04-25] MEDS: ENOXAPARIN 100MG/1ML SYRINGE (J1650) SC (20:36)
[2017-04-25] MEDS: ATORVASTATIN 20 MG TAB PO (20:36)
[2017-04-26] MEDS: SODIUM CHLORIDE 0.9% INJ 10 ML SYR IV ×4 (05:23→22:13)
[2017-04-26 05:30] LABS: HEMATOCRIT 27.7 % (42.0-52.0); HEMOGLOBIN 9.6 g/dl (14.0-18.0); MEAN CORPUSCULAR HEMOGLOBIN 29.7 pg (27.0-33.0); MEAN CORPUSCULAR HGB CONC 34.7 g/dl (32.0-36.5); MEAN CORPUSCULAR VOLUME 85.8 fl (80.0-96.0); PLATELET COUNT, AUTOMATED 241 10^3/uL (150-450); RED BLOOD COUNT 3.23 10^6/uL (4.30-6.10); RED CELL DISTRIBUTION WIDTH 14.9 % (11.5-14.5); WHITE BLOOD COUNT 26.1 10^3/uL (4.0-10.0)
[2017-04-26 05:48] LABS: ALBUMIN 1.4 GM/DL (3.2-5.2); ALKALINE PHOSPHATASE 94 U/L (45-117); ALT/SGPT 50 U/L (12-78); ANION GAP 8 MEQ/L (8-16); AST/SGOT 12 U/L (7-37); BILIRUBIN,TOTAL 0.3 MG/DL (0.2-1.0); BLOOD UREA NITROGEN 16 MG/DL (7-18); CARBON DIOXIDE LEVEL 26 MEQ/L (21-32); CHLORIDE LEVEL 109 MEQ/L (98-107); CREATININE FOR GFR 0.62 MG/DL (0.70-1.30); GLOMERULAR FILTRATION RATE > 60.0 (>56); GLUCOSE, FASTING 93 MG/DL (70-100); POTASSIUM SERUM 3.8 MEQ/L (3.5-5.1); SODIUM LEVEL 143 MEQ/L (136-145); TOTAL PROTEIN 4.9 GM/DL (6.4-8.2)
[2017-04-26] MEDS: ALBUTEROL SULFATE 2.5 MG/0.5 ML INH NEB SOLN NEB ×5 (06:56→23:49)
[2017-04-26] MEDS: levETIRAcetam 250MG TABLET (KEPPRA) PO ×2 (08:28→22:13)
[2017-04-26] MEDS: PANTOPRAZOLE 40MG INJ (PROTONIX) (C9113) IV (08:28)
[2017-04-26] MEDS: ASPIRIN 81 MG ENTERIC TAB PO (08:29)
[2017-04-26] MEDS: PERCOCET 5MG/325MG TAB PO (10:28)
[2017-04-26] MEDS: CEFTRIAXONE SOD 2 GM in APPROPRIATE DILUENT 1 EA IV ×2 (10:28→22:13)
[2017-04-26] MEDS: ATORVASTATIN 20 MG TAB PO (22:13)
[2017-04-26] MEDS: ENOXAPARIN 40 MG/0.4 ML SYRINGE (J1650) SC (22:13)
[2017-04-27] MEDS: ALBUTEROL SULFATE 2.5 MG/0.5 ML INH NEB SOLN NEB ×5 (03:50→19:43)
[2017-04-27] MEDS: SODIUM CHLORIDE 0.9% INJ 10 ML SYR IV ×3 (06:00→22:09)
[2017-04-27 06:10] LABS: HEMATOCRIT 29.4 % (42.0-52.0); HEMOGLOBIN 10.2 g/dl (14.0-18.0); MEAN CORPUSCULAR HEMOGLOBIN 29.2 pg (27.0-33.0); MEAN CORPUSCULAR HGB CONC 34.7 g/dl (32.0-36.5); MEAN CORPUSCULAR VOLUME 84.2 fl (80.0-96.0); PLATELET COUNT, AUTOMATED 350 10^3/uL (150-450); RED BLOOD COUNT 3.49 10^6/uL (4.30-6.10); RED CELL DISTRIBUTION WIDTH 14.9 % (11.5-14.5); WHITE BLOOD COUNT 23.3 10^3/uL (4.0-10.0)
[2017-04-27 06:38] LABS: ALBUMIN 1.4 GM/DL (3.2-5.2); ALBUMIN/GLOBULIN RATIO 0.32 (1.00-1.93); ALKALINE PHOSPHATASE 93 U/L (45-117); ALT/SGPT 38 U/L (12-78); ANION GAP 7 MEQ/L (8-16); AST/SGOT 11 U/L (7-37); BILIRUBIN,TOTAL 0.3 MG/DL (0.2-1.0); BLOOD UREA NITROGEN 12 MG/DL (7-18); CALCIUM LEVEL 7.3 MG/DL (8.5-10.1); CARBON DIOXIDE LEVEL 27 MEQ/L (21-32); CHLORIDE LEVEL 106 MEQ/L (98-107); CREATININE FOR GFR 0.62 MG/DL (0.70-1.30); GLOMERULAR FILTRATION RATE > 60.0 (>56); GLUCOSE, FASTING 96 MG/DL (70-100); POTASSIUM SERUM 3.2 MEQ/L (3.5-5.1); SODIUM LEVEL 140 MEQ/L (136-145); TOTAL PROTEIN 5.8 GM/DL (6.4-8.2)
[2017-04-27] MEDS: ASPIRIN 81 MG ENTERIC TAB PO (09:17)
[2017-04-27] MEDS: levETIRAcetam 250MG TABLET (KEPPRA) PO ×2 (09:18→20:19)
[2017-04-27 09:59] LABS: VITAMIN B12 LEVEL 781 PG/ML (247-911)
[2017-04-27] MEDS: PANTOPRAZOLE 40MG INJ (PROTONIX) (C9113) IV (10:12)
[2017-04-27] MEDS: CEFTRIAXONE SOD 2 GM in APPROPRIATE DILUENT 1 EA IV ×2 (10:29→21:43)
[2017-04-27] MEDS: PERCOCET 5MG/325MG TAB PO (12:43)
[2017-04-27] MEDS: POTASSIUM CHLORIDE 10 MEQ SR TABLET PO (15:21)
[2017-04-27] MEDS: ATORVASTATIN 20 MG TAB PO (20:19)
[2017-04-27] MEDS: ENOXAPARIN 40 MG/0.4 ML SYRINGE (J1650) SC (20:20)
[2017-04-28] MEDS: PERCOCET 5MG/325MG TAB PO ×2 (01:41→14:40)
[2017-04-28] MEDS: SODIUM CHLORIDE 0.9% INJ 10 ML SYR IV ×3 (05:36→22:12)
[2017-04-28 07:00] LABS: HEMATOCRIT 30.6 % (42.0-52.0); HEMOGLOBIN 10.2 g/dl (14.0-18.0); MEAN CORPUSCULAR HEMOGLOBIN 29.1 pg (27.0-33.0); MEAN CORPUSCULAR HGB CONC 33.3 g/dl (32.0-36.5); MEAN CORPUSCULAR VOLUME 87.2 fl (80.0-96.0); PLATELET COUNT, AUTOMATED 378 10^3/uL (150-450); RED BLOOD COUNT 3.51 10^6/uL (4.30-6.10); RED CELL DISTRIBUTION WIDTH 15.3 % (11.5-14.5); WHITE BLOOD COUNT 18.4 10^3/uL (4.0-10.0)
[2017-04-28 07:25] LABS: ALBUMIN 1.3 GM/DL (3.2-5.2); ALBUMIN/GLOBULIN RATIO 0.27 (1.00-1.93); ALKALINE PHOSPHATASE 104 U/L (45-117); ALT/SGPT 30 U/L (12-78); ANION GAP 7 MEQ/L (8-16); AST/SGOT 13 U/L (7-37); BILIRUBIN,TOTAL 0.3 MG/DL (0.2-1.0); BLOOD UREA NITROGEN 12 MG/DL (7-18); C REACTIVE PROTEIN QUANTITATIV 9.29 MG/DL (0.00-0.30); CALCIUM LEVEL 7.9 MG/DL (8.5-10.1); CARBON DIOXIDE LEVEL 26 MEQ/L (21-32); CHLORIDE LEVEL 107 MEQ/L (98-107); CREATININE FOR GFR 0.63 MG/DL (0.70-1.30); GLOMERULAR FILTRATION RATE > 60.0 (>56); GLUCOSE, FASTING 85 MG/DL (70-100); POTASSIUM SERUM 4.2 MEQ/L (3.5-5.1); SODIUM LEVEL 140 MEQ/L (136-145); TOTAL PROTEIN 6.1 GM/DL (6.4-8.2)
[2017-04-28] MEDS: ALBUTEROL SULFATE 2.5 MG/0.5 ML INH NEB SOLN NEB ×4 (08:13→19:44)
[2017-04-28] MEDS: PANTOPRAZOLE 40MG INJ (PROTONIX) (C9113) IV (10:02)
[2017-04-28] MEDS: levETIRAcetam 250MG TABLET (KEPPRA) PO ×2 (10:02→21:58)
[2017-04-28] MEDS: ASPIRIN 81 MG ENTERIC TAB PO (10:02)
[2017-04-28] MEDS: CEFTRIAXONE SOD 2 GM in APPROPRIATE DILUENT 1 EA IV ×2 (10:03→22:12)
[2017-04-28] MEDS: ATORVASTATIN 20 MG TAB PO (21:58)
[2017-04-28] MEDS: ENOXAPARIN 40 MG/0.4 ML SYRINGE (J1650) SC (21:58)
[2017-04-29] MEDS: PERCOCET 5MG/325MG TAB PO ×3 (04:30→18:30)
[2017-04-29] MEDS: SODIUM CHLORIDE 0.9% INJ 10 ML SYR IV ×3 (06:00→22:46)
[2017-04-29 06:27] LABS: HEMATOCRIT 27.5 % (42.0-52.0); HEMOGLOBIN 9.5 g/dl (14.0-18.0); MEAN CORPUSCULAR HEMOGLOBIN 29.4 pg (27.0-33.0); MEAN CORPUSCULAR HGB CONC 34.5 g/dl (32.0-36.5); MEAN CORPUSCULAR VOLUME 85.1 fl (80.0-96.0); PLATELET COUNT, AUTOMATED 418 10^3/uL (150-450); RED BLOOD COUNT 3.23 10^6/uL (4.30-6.10); RED CELL DISTRIBUTION WIDTH 15.3 % (11.5-14.5); WHITE BLOOD COUNT 17.6 10^3/uL (4.0-10.0)
[2017-04-29 06:49] LABS: ALBUMIN 1.4 GM/DL (3.2-5.2); ALBUMIN/GLOBULIN RATIO 0.29 (1.00-1.93); ALKALINE PHOSPHATASE 106 U/L (45-117); ALT/SGPT 27 U/L (12-78); ANION GAP 7 MEQ/L (8-16); AST/SGOT 14 U/L (7-37); BILIRUBIN,TOTAL 0.3 MG/DL (0.2-1.0); BLOOD UREA NITROGEN 17 MG/DL (7-18); CARBON DIOXIDE LEVEL 27 MEQ/L (21-32); CHLORIDE LEVEL 104 MEQ/L (98-107); CREATININE FOR GFR 0.68 MG/DL (0.70-1.30); GLOMERULAR FILTRATION RATE > 60.0 (>56); GLUCOSE, FASTING 89 MG/DL (70-100); POTASSIUM SERUM 3.5 MEQ/L (3.5-5.1); SODIUM LEVEL 138 MEQ/L (136-145); TOTAL PROTEIN 6.2 GM/DL (6.4-8.2)
[2017-04-29] MEDS: ALBUTEROL SULFATE 2.5 MG/0.5 ML INH NEB SOLN NEB ×4 (07:32→20:09)
[2017-04-29] MEDS: PANTOPRAZOLE 40MG INJ (PROTONIX) (C9113) IV (10:24)
[2017-04-29] MEDS: levETIRAcetam 250MG TABLET (KEPPRA) PO ×2 (10:25→21:27)
[2017-04-29] MEDS: ASPIRIN 81 MG ENTERIC TAB PO (10:25)
[2017-04-29] MEDS: CEFTRIAXONE SOD 2 GM in APPROPRIATE DILUENT 1 EA IV ×2 (10:26→22:46)
[2017-04-29] MEDS: ENOXAPARIN 40 MG/0.4 ML SYRINGE (J1650) SC (21:27)
[2017-04-29] MEDS: ATORVASTATIN 20 MG TAB PO (21:27)
[2017-04-30] MEDS: PERCOCET 5MG/325MG TAB PO ×3 (00:51→20:08)
[2017-04-30] MEDS: SODIUM CHLORIDE 0.9% INJ 10 ML SYR IV (05:32)
[2017-04-30 05:59] LABS: HEMATOCRIT 27.1 % (42.0-52.0); HEMOGLOBIN 9.1 g/dl (14.0-18.0); MEAN CORPUSCULAR HEMOGLOBIN 29.1 pg (27.0-33.0); MEAN CORPUSCULAR HGB CONC 33.6 g/dl (32.0-36.5); MEAN CORPUSCULAR VOLUME 86.6 fl (80.0-96.0); PLATELET COUNT, AUTOMATED 464 10^3/uL (150-450); RED BLOOD COUNT 3.13 10^6/uL (4.30-6.10); RED CELL DISTRIBUTION WIDTH 15.4 % (11.5-14.5); WHITE BLOOD COUNT 18.3 10^3/uL (4.0-10.0)
[2017-04-30 06:21] LABS: ALBUMIN 1.4 GM/DL (3.2-5.2); ALBUMIN/GLOBULIN RATIO 0.33 (1.00-1.93); ALKALINE PHOSPHATASE 102 U/L (45-117); ALT/SGPT 23 U/L (12-78); ANION GAP 6 MEQ/L (8-16); AST/SGOT 16 U/L (7-37); BILIRUBIN,TOTAL 0.2 MG/DL (0.2-1.0); BLOOD UREA NITROGEN 13 MG/DL (7-18); CALCIUM LEVEL 7.7 MG/DL (8.5-10.1); CARBON DIOXIDE LEVEL 26 MEQ/L (21-32); CHLORIDE LEVEL 108 MEQ/L (98-107); CREATININE FOR GFR 0.57 MG/DL (0.70-1.30); GLOMERULAR FILTRATION RATE > 60.0 (>56); GLUCOSE, FASTING 77 MG/DL (70-100); POTASSIUM SERUM 4.1 MEQ/L (3.5-5.1); SODIUM LEVEL 140 MEQ/L (136-145); TOTAL PROTEIN 5.6 GM/DL (6.4-8.2)
[2017-04-30] MEDS: ALBUTEROL SULFATE 2.5 MG/0.5 ML INH NEB SOLN NEB ×4 (07:23→19:44)
[2017-04-30] MEDS: ASPIRIN 81 MG ENTERIC TAB PO (08:49)
[2017-04-30] MEDS: PANTOPRAZOLE 40MG TAB (PROTONIX) PO (08:49)
[2017-04-30] MEDS: levETIRAcetam 250MG TABLET (KEPPRA) PO ×2 (08:50→20:08)
[2017-04-30 10:05] LABS: C REACTIVE PROTEIN QUANTITATIV 5.77 MG/DL (0.00-0.30)
[2017-04-30] MEDS ORDERED: SLF 3 ML SYR IV (13:45)
[2017-04-30] MEDS: SLF 3 ML SYR IV ×2 (14:00→20:07)
[2017-04-30] MEDS: ENOXAPARIN 40 MG/0.4 ML SYRINGE (J1650) SC (20:07)
[2017-04-30] MEDS: ATORVASTATIN 20 MG TAB PO (20:08)
[2017-05-01] MEDS: CEFTRIAXONE SOD 2 GM in APPROPRIATE DILUENT 1 EA IV (05:20)
[2017-05-01] MEDS: PERCOCET 5MG/325MG TAB PO ×2 (05:20→20:04)
[2017-05-01] MEDS: SLF 3 ML SYR IV ×3 (05:21→20:04)
[2017-05-01 06:18] LABS: HEMATOCRIT 27.5 % (42.0-52.0); HEMOGLOBIN 9.3 g/dl (14.0-18.0); MEAN CORPUSCULAR HEMOGLOBIN 29.2 pg (27.0-33.0); MEAN CORPUSCULAR HGB CONC 33.8 g/dl (32.0-36.5); MEAN CORPUSCULAR VOLUME 86.2 fl (80.0-96.0); PLATELET COUNT, AUTOMATED 504 10^3/uL (150-450); RED BLOOD COUNT 3.19 10^6/uL (4.30-6.10); RED CELL DISTRIBUTION WIDTH 15.3 % (11.5-14.5); WHITE BLOOD COUNT 20.8 10^3/uL (4.0-10.0)
[2017-05-01 06:36] LABS: ALBUMIN 1.5 GM/DL (3.2-5.2); ALBUMIN/GLOBULIN RATIO 0.29 (1.00-1.93); ALKALINE PHOSPHATASE 99 U/L (45-117); ALT/SGPT 20 U/L (12-78); ANION GAP 7 MEQ/L (8-16); AST/SGOT 17 U/L (7-37); BILIRUBIN,TOTAL 0.2 MG/DL (0.2-1.0); BLOOD UREA NITROGEN 12 MG/DL (7-18); CARBON DIOXIDE LEVEL 27 MEQ/L (21-32); CHLORIDE LEVEL 106 MEQ/L (98-107); CREATININE FOR GFR 0.63 MG/DL (0.70-1.30); GLOMERULAR FILTRATION RATE > 60.0 (>56); GLUCOSE, FASTING 89 MG/DL (70-100); POTASSIUM SERUM 3.8 MEQ/L (3.5-5.1); SODIUM LEVEL 140 MEQ/L (136-145); TOTAL PROTEIN 6.7 GM/DL (6.4-8.2)
[2017-05-01] MEDS: ALBUTEROL SULFATE 2.5 MG/0.5 ML INH NEB SOLN NEB ×4 (07:10→20:27)
[2017-05-01] MEDS: levETIRAcetam 250MG TABLET (KEPPRA) PO ×2 (09:00→20:03)
[2017-05-01] MEDS: PREVNAR 13 VACCINE SYRINGE (CPT CODE:90670) IM (09:00)
[2017-05-01] MEDS: PANTOPRAZOLE 40MG TAB (PROTONIX) PO (09:01)
[2017-05-01] MEDS: ASPIRIN 81 MG ENTERIC TAB PO (09:01)
[2017-05-01] MEDS: CEPHALEXIN 250 MG CAP PO (10:31)
[2017-05-01] MEDS ORDERED: LIDOCAINE 1% MDV 20ML VIAL As Ordered (12:15)
[2017-05-01 13:35] LABS: BODY FLUID RHEUMATOID SCREEN NEGATIVE (NEGATIVE)
[2017-05-01 13:36] LABS: MUCIN CLOT TEST 4+ (4+)
[2017-05-01 13:50] LABS: CRYSTALS, BODY FLUID NONE SEEN (NONE SEEN); SOURCE, BODY FLUID CRYSTALS RT SHOULDER
[2017-05-01 14:17] LABS: SOURCE, BODY FLUID GLUCOSE RT SHOULDER; SOURCE, BODY FLUID URIC ACID RT SHOULDER; URIC ACID, BODY FLUID 4.8 MG/DL (NOT ESTABLISHED)
[2017-05-01 14:37] LABS: BF MONONUCLEAR CELL % 3.5 % (0-0); BF POLYMORPHONUCLEAR CELL % 96.5 % (0-0); RBC BODY FLUID < 2 10^3/uL (<2)
[2017-05-01 14:38] LABS: APPEARANCE, BODY FLUID CLOUDY (CLEAR); BF DIFF IF INDICATED? YES (NO); SOURCE, BODY FLUID RT SHOULDER; SYNOVIAL FLUID COLOR PALE YELLOW (YELLOW); WBC BODY FLUID 149700 /uL (0-10)
[2017-05-01] MEDS: ATORVASTATIN 20 MG TAB PO (20:03)
[2017-05-02] MEDS: SLF 3 ML SYR IV ×3 (05:26→20:27)
[2017-05-02 06:24] LABS: HEMATOCRIT 29.6 % (42.0-52.0); HEMOGLOBIN 9.7 g/dl (14.0-18.0); MEAN CORPUSCULAR HEMOGLOBIN 28.9 pg (27.0-33.0); MEAN CORPUSCULAR HGB CONC 32.8 g/dl (32.0-36.5); MEAN CORPUSCULAR VOLUME 88.1 fl (80.0-96.0); PLATELET COUNT, AUTOMATED 580 10^3/uL (150-450); RED BLOOD COUNT 3.36 10^6/uL (4.30-6.10); RED CELL DISTRIBUTION WIDTH 15.2 % (11.5-14.5); WHITE BLOOD COUNT 19.7 10^3/uL (4.0-10.0)
[2017-05-02] MEDS: ALBUTEROL SULFATE 2.5 MG/0.5 ML INH NEB SOLN NEB ×4 (07:28→19:41)
[2017-05-02] MEDS ORDERED: fentaNYL 250 MCG/5 ML INJECTION (J3010) As Ordered (08:11)
[2017-05-02] MEDS ORDERED: LIDOCAINE 2% INJ 100 MG/5 ML SDV (FOR ANES.) As Ordered (08:11)
[2017-05-02] MEDS ORDERED: ROCURONIUM BROMIDE 50 MG/5 ML VIAL As Ordered (08:11)
[2017-05-02] MEDS ORDERED: PROPOFOL 200 MG/20 ML VIAL As Ordered (08:11)
[2017-05-02] MEDS ORDERED: MIDAZOLAM INJ 2 MG/2 ML VIAL (J2250) As Ordered ×2 (08:12→08:58)
[2017-05-02] MEDS: PANTOPRAZOLE 40MG TAB (PROTONIX) PO (08:15)
[2017-05-02] MEDS: ASPIRIN 81 MG ENTERIC TAB PO (08:15)
[2017-05-02] MEDS: levETIRAcetam 250MG TABLET (KEPPRA) PO ×2 (08:15→20:26)
[2017-05-02] MEDS: CEFTRIAXONE SOD 2 GM in APPROPRIATE DILUENT 1 EA IV (08:15)
[2017-05-02] MEDS ORDERED: fentaNYL 100 MCG/2 ML INJECTION (J3010) As Ordered (08:58)
[2017-05-02] MEDS ORDERED: CLINDAMYCIN 600 MG/50 ML PREMIX BAG As Ordered (09:20)
[2017-05-02] MEDS: fentaNYL 100 MCG/2 ML INJECTION (J3010) IV ×2 (09:30→09:44)
[2017-05-02] MEDS: MIDAZOLAM INJ 2 MG/2 ML VIAL (J2250) IV ×2 (09:30→09:37)
[2017-05-02] MEDS: CLINDAMYCIN 600 MG in APPROPRIATE DILUENT 1 EA IV (10:00)
[2017-05-02] MEDS: EPINEPHrine 1MG/ML INJ 30ML MD-VIAL As Ordered (10:26)
[2017-05-02] MEDS ORDERED: dexameTHASONE 10 MG/1 ML VIAL PRES.FREE (J1100) (10:29)
[2017-05-02] MEDS ORDERED: MEPIVACAINE HCL 1.5% 30 ML VIAL (J0670) (10:29)
[2017-05-02] MEDS ORDERED: BUPIVACAINE/EPIN 0.5% 30 ML VIAL (10:29)
[2017-05-02] MEDS: LR 1,000 ML IV (12:45)
[2017-05-02] MEDS: ATORVASTATIN 20 MG TAB PO (20:25)
[2017-05-02] MEDS: PERCOCET 5MG/325MG TAB PO (20:26)
[2017-05-02] MEDS: BISACODYL 10 MG SUPP PR (20:27)
[2017-05-03] MEDS: LR 1,000 ML IV (01:15)
[2017-05-03] MEDS: SLF 3 ML SYR IV ×3 (05:46→20:27)
[2017-05-03] MEDS: ENOXAPARIN 40 MG/0.4 ML SYRINGE (J1650) SC (07:56)
[2017-05-03] MEDS: levETIRAcetam 250MG TABLET (KEPPRA) PO ×2 (07:57→20:26)
[2017-05-03] MEDS: ASPIRIN 81 MG ENTERIC TAB PO (07:57)
[2017-05-03] MEDS: CEFTRIAXONE SOD 2 GM in APPROPRIATE DILUENT 1 EA IV (07:57)
[2017-05-03] MEDS: PANTOPRAZOLE 40MG TAB (PROTONIX) PO (07:57)
[2017-05-03] MEDS: ALBUTEROL SULFATE 2.5 MG/0.5 ML INH NEB SOLN NEB ×4 (09:41→19:44)
[2017-05-03] MEDS: PERCOCET 5MG/325MG TAB PO ×2 (14:53→20:30)
[2017-05-03] MEDS: ATORVASTATIN 20 MG TAB PO (20:27)
[2017-05-04] MEDS: PERCOCET 5MG/325MG TAB PO ×3 (03:02→17:52)
[2017-05-04 06:10] LABS: BASO % 0.1 % (0.0-1.0); EOS % 0.2 % (0.0-3.0); HEMOGLOBIN 8.9 g/dl (14.0-18.0); IMMATURE GRANULOCYTE # 0.1 10^3/uL (0-0); IMMATURE GRANULOCYTE % 0.4 % (0-0); LYMPH # 3.4 10^3/uL (1.5-4.5); LYMPH % 23.6 % (24.0-44.0); MEAN CORPUSCULAR HEMOGLOBIN 29.2 pg (27.0-33.0); MEAN CORPUSCULAR VOLUME 88.5 fl (80.0-96.0); MONO # 1.5 10^3/uL (0.0-0.8); MONO % 10.1 % (0.0-5.0); NEUTROPHILS # 9.4 10^3/uL (1.8-7.7); NEUTROPHILS % 65.6 % (36.0-66.0); PLATELET COUNT, AUTOMATED 702 10^3/uL (150-450); RED BLOOD COUNT 3.05 10^6/uL (4.30-6.10); RED CELL DISTRIBUTION WIDTH 15.3 % (11.5-14.5); WHITE BLOOD COUNT 14.4 10^3/uL (4.0-10.0)
[2017-05-04 06:31] LABS: ALBUMIN 1.5 GM/DL (3.2-5.2); ALBUMIN/GLOBULIN RATIO 0.31 (1.00-1.93); ALKALINE PHOSPHATASE 86 U/L (45-117); ALT/SGPT 17 U/L (12-78); ANION GAP 8 MEQ/L (8-16); AST/SGOT 9 U/L (7-37); BILIRUBIN,TOTAL 0.1 MG/DL (0.2-1.0); BLOOD UREA NITROGEN 16 MG/DL (7-18); CARBON DIOXIDE LEVEL 26 MEQ/L (21-32); CHLORIDE LEVEL 108 MEQ/L (98-107); CREATININE FOR GFR 0.58 MG/DL (0.70-1.30); GLOMERULAR FILTRATION RATE > 60.0 (>56); GLUCOSE, FASTING 85 MG/DL (70-100); POTASSIUM SERUM 3.9 MEQ/L (3.5-5.1); SODIUM LEVEL 142 MEQ/L (136-145); TOTAL PROTEIN 6.4 GM/DL (6.4-8.2)
[2017-05-04] MEDS: SLF 3 ML SYR IV ×3 (06:57→20:04)
[2017-05-04] MEDS: ALBUTEROL SULFATE 2.5 MG/0.5 ML INH NEB SOLN NEB ×4 (07:11→19:20)
[2017-05-04] MEDS: ENOXAPARIN 40 MG/0.4 ML SYRINGE (J1650) SC (08:11)
[2017-05-04] MEDS: CEFTRIAXONE SOD 2 GM in APPROPRIATE DILUENT 1 EA IV (08:11)
[2017-05-04] MEDS: levETIRAcetam 250MG TABLET (KEPPRA) PO ×2 (08:11→20:02)
[2017-05-04] MEDS: ASPIRIN 81 MG ENTERIC TAB PO (08:11)
[2017-05-04] MEDS: PANTOPRAZOLE 40MG TAB (PROTONIX) PO (08:11)
[2017-05-04] MEDS: ATORVASTATIN 20 MG TAB PO (20:03)
[2017-05-05] MEDS: PERCOCET 5MG/325MG TAB PO ×2 (04:55→12:28)
[2017-05-05] MEDS: SLF 3 ML SYR IV ×3 (05:09→22:07)
[2017-05-05 05:56] LABS: BASO % 0.2 % (0.0-1.0); EOS % 0.2 % (0.0-3.0); HEMATOCRIT 26.3 % (42.0-52.0); HEMOGLOBIN 8.8 g/dl (14.0-18.0); IMMATURE GRANULOCYTE # 0.1 10^3/uL (0-0); IMMATURE GRANULOCYTE % 0.4 % (0-0); LYMPH # 2.4 10^3/uL (1.5-4.5); LYMPH % 13.1 % (24.0-44.0); MEAN CORPUSCULAR HEMOGLOBIN 29.3 pg (27.0-33.0); MEAN CORPUSCULAR HGB CONC 33.5 g/dl (32.0-36.5); MEAN CORPUSCULAR VOLUME 87.7 fl (80.0-96.0); MONO # 1.9 10^3/uL (0.0-0.8); MONO % 10.2 % (0.0-5.0); NEUTROPHILS % 75.9 % (36.0-66.0); PLATELET COUNT, AUTOMATED 699 10^3/uL (150-450); RED CELL DISTRIBUTION WIDTH 15.2 % (11.5-14.5); WHITE BLOOD COUNT 18.4 10^3/uL (4.0-10.0)
[2017-05-05 06:21] LABS: ALBUMIN 1.6 GM/DL (3.2-5.2); ALBUMIN/GLOBULIN RATIO 0.33 (1.00-1.93); ALKALINE PHOSPHATASE 86 U/L (45-117); ALT/SGPT 18 U/L (12-78); ANION GAP 7 MEQ/L (8-16); AST/SGOT 13 U/L (7-37); BILIRUBIN,TOTAL 0.2 MG/DL (0.2-1.0); BLOOD UREA NITROGEN 15 MG/DL (7-18); CARBON DIOXIDE LEVEL 28 MEQ/L (21-32); CHLORIDE LEVEL 107 MEQ/L (98-107); CREATININE FOR GFR 0.49 MG/DL (0.70-1.30); GLOMERULAR FILTRATION RATE > 60.0 (>56); GLUCOSE, FASTING 96 MG/DL (70-100); POTASSIUM SERUM 3.6 MEQ/L (3.5-5.1); SODIUM LEVEL 142 MEQ/L (136-145); TOTAL PROTEIN 6.5 GM/DL (6.4-8.2)
[2017-05-05] MEDS: ALBUTEROL SULFATE 2.5 MG/0.5 ML INH NEB SOLN NEB ×4 (07:09→19:19)
[2017-05-05] MEDS: PANTOPRAZOLE 40MG TAB (PROTONIX) PO (08:21)
[2017-05-05] MEDS: ENOXAPARIN 40 MG/0.4 ML SYRINGE (J1650) SC (08:21)
[2017-05-05] MEDS: levETIRAcetam 250MG TABLET (KEPPRA) PO ×2 (08:21→20:37)
[2017-05-05] MEDS: ASPIRIN 81 MG ENTERIC TAB PO (08:21)
[2017-05-05] MEDS: CEFTRIAXONE SOD 2 GM in APPROPRIATE DILUENT 1 EA IV (08:21)
[2017-05-05 19:30] LABS: C REACTIVE PROTEIN QUANTITATIV 4.36 MG/DL (0.00-0.30)
[2017-05-05] MEDS: ATORVASTATIN 20 MG TAB PO (20:36)
[2017-05-05] MEDS: BISACODYL 10 MG SUPP PR (20:37)
[2017-05-06] MEDS: SLF 3 ML SYR IV ×3 (05:37→20:15)
[2017-05-06 05:44] LABS: BASO % 0.2 % (0.0-1.0); EOS # 0.1 10^3/uL (0.0-0.50); EOS % 0.5 % (0.0-3.0); HEMATOCRIT 24.5 % (42.0-52.0); HEMOGLOBIN 8.1 g/dl (14.0-18.0); IMMATURE GRANULOCYTE # 0.1 10^3/uL (0-0); IMMATURE GRANULOCYTE % 0.4 % (0-0); LYMPH # 2.7 10^3/uL (1.5-4.5); LYMPH % 16.1 % (24.0-44.0); MEAN CORPUSCULAR HEMOGLOBIN 28.8 pg (27.0-33.0); MEAN CORPUSCULAR HGB CONC 33.1 g/dl (32.0-36.5); MEAN CORPUSCULAR VOLUME 87.2 fl (80.0-96.0); MONO # 1.7 10^3/uL (0.0-0.8); MONO % 9.8 % (0.0-5.0); NEUTROPHILS # 12.3 10^3/uL (1.8-7.7); PLATELET COUNT, AUTOMATED 737 10^3/uL (150-450); RED BLOOD COUNT 2.81 10^6/uL (4.30-6.10); RED CELL DISTRIBUTION WIDTH 15.2 % (11.5-14.5); WHITE BLOOD COUNT 16.9 10^3/uL (4.0-10.0)
[2017-05-06 06:06] LABS: ALBUMIN 1.6 GM/DL (3.2-5.2); ALBUMIN/GLOBULIN RATIO 0.34 (1.00-1.93); ALKALINE PHOSPHATASE 78 U/L (45-117); ALT/SGPT 13 U/L (12-78); ANION GAP 7 MEQ/L (8-16); AST/SGOT 10 U/L (7-37); BILIRUBIN,TOTAL 0.3 MG/DL (0.2-1.0); BLOOD UREA NITROGEN 24 MG/DL (7-18); CALCIUM LEVEL 8.2 MG/DL (8.5-10.1); CARBON DIOXIDE LEVEL 27 MEQ/L (21-32); CHLORIDE LEVEL 106 MEQ/L (98-107); CREATININE FOR GFR 0.44 MG/DL (0.70-1.30); GLOMERULAR FILTRATION RATE > 60.0 (>56); GLUCOSE, FASTING 103 MG/DL (70-100); POTASSIUM SERUM 3.6 MEQ/L (3.5-5.1); SODIUM LEVEL 140 MEQ/L (136-145); TOTAL PROTEIN 6.3 GM/DL (6.4-8.2)
[2017-05-06] MEDS: ALBUTEROL SULFATE 2.5 MG/0.5 ML INH NEB SOLN NEB ×4 (08:00→20:29)
[2017-05-06] MEDS: ENOXAPARIN 40 MG/0.4 ML SYRINGE (J1650) SC (08:19)
[2017-05-06] MEDS: ASPIRIN 81 MG ENTERIC TAB PO (09:26)
[2017-05-06] MEDS: PANTOPRAZOLE 40MG TAB (PROTONIX) PO (09:26)
[2017-05-06] MEDS: levETIRAcetam 250MG TABLET (KEPPRA) PO ×2 (09:26→20:12)
[2017-05-06] MEDS: CEFTRIAXONE SOD 2 GM in APPROPRIATE DILUENT 1 EA IV (09:27)
[2017-05-06] MEDS: PERCOCET 5MG/325MG TAB PO ×2 (12:33→20:13)
[2017-05-06] MEDS: ATORVASTATIN 20 MG TAB PO (20:12)
[2017-05-07] MEDS: SLF 3 ML SYR IV ×3 (04:57→22:31)
[2017-05-07] MEDS: PERCOCET 5MG/325MG TAB PO (05:36)
[2017-05-07 06:47] LABS: BASO % 0.2 % (0.0-1.0); EOS # 0.2 10^3/uL (0.0-0.50); EOS % 1.1 % (0.0-3.0); HEMATOCRIT 23.9 % (42.0-52.0); HEMOGLOBIN 7.7 g/dl (14.0-18.0); IMMATURE GRANULOCYTE % 0.4 % (0-3.0); LYMPH # 2.8 10^3/uL (1.5-4.5); LYMPH % 15.2 % (24.0-44.0); MEAN CORPUSCULAR HEMOGLOBIN 29.1 pg (27.0-33.0); MEAN CORPUSCULAR HGB CONC 32.2 g/dl (32.0-36.5); MEAN CORPUSCULAR VOLUME 90.2 fl (80.0-96.0); MONO # 1.8 10^3/uL (0.0-0.8); MONO % 9.7 % (0.0-5.0); NEUTROPHILS # 13.4 10^3/uL (1.8-7.7); NEUTROPHILS % 73.4 % (36.0-66.0); PLATELET COUNT, AUTOMATED 785 10^3/uL (150-450); RED BLOOD COUNT 2.65 10^6/uL (4.30-6.10); RED CELL DISTRIBUTION WIDTH 15.5 % (11.5-14.5); WHITE BLOOD COUNT 18.3 10^3/uL (4.0-10.0)
[2017-05-07 07:13] LABS: ALBUMIN 1.8 GM/DL (3.2-5.2); ALBUMIN/GLOBULIN RATIO 0.36 (1.00-1.93); ALKALINE PHOSPHATASE 75 U/L (45-117); ALT/SGPT 12 U/L (12-78); ANION GAP 7 MEQ/L (8-16); AST/SGOT 7 U/L (7-37); BILIRUBIN,TOTAL 0.2 MG/DL (0.2-1.0); BLOOD UREA NITROGEN 22 MG/DL (7-18); CALCIUM LEVEL 8.3 MG/DL (8.5-10.1); CARBON DIOXIDE LEVEL 28 MEQ/L (21-32); CHLORIDE LEVEL 106 MEQ/L (98-107); CREATININE FOR GFR 0.44 MG/DL (0.70-1.30); GLOMERULAR FILTRATION RATE > 60.0 (>56); GLUCOSE, FASTING 88 MG/DL (70-100); POTASSIUM SERUM 3.8 MEQ/L (3.5-5.1); SODIUM LEVEL 141 MEQ/L (136-145); TOTAL PROTEIN 6.8 GM/DL (6.4-8.2)
[2017-05-07] MEDS: ALBUTEROL SULFATE 2.5 MG/0.5 ML INH NEB SOLN NEB ×4 (07:24→20:00)
[2017-05-07] MEDS: ENOXAPARIN 40 MG/0.4 ML SYRINGE (J1650) SC (08:00)
[2017-05-07] MEDS: ASPIRIN 81 MG ENTERIC TAB PO (09:36)
[2017-05-07] MEDS: PANTOPRAZOLE 40MG TAB (PROTONIX) PO (09:37)
[2017-05-07] MEDS: levETIRAcetam 250MG TABLET (KEPPRA) PO ×2 (09:37→22:31)
[2017-05-07] MEDS: CEFTRIAXONE SOD 2 GM in APPROPRIATE DILUENT 1 EA IV (09:37)
[2017-05-07 10:33] LABS: HEMATOCRIT 25.5 % (42.0-52.0); HEMOGLOBIN 8.3 g/dl (14.0-18.0)
[2017-05-07] MEDS: BISACODYL 10 MG SUPP PR (14:39)
[2017-05-07] MEDS: INFLUENZA QUADRIVALENT PF VACCINE 0.5ML SYRINGE (90686) IM (17:32)
[2017-05-07] MEDS: KETOROLAC TROMETHAMINE 10 MG TAB PO ×2 (18:50→23:24)
[2017-05-07] MEDS: ATORVASTATIN 20 MG TAB PO (22:29)
[2017-05-07] MEDS: CEPHALEXIN 500 MG CAP PO (22:29)
[2017-05-08] MEDS: KETOROLAC TROMETHAMINE 10 MG TAB PO (05:32)
[2017-05-08] MEDS: SLF 3 ML SYR IV ×3 (05:32→20:44)
[2017-05-08 06:12] LABS: BASO % 0.2 % (0.0-1.0); EOS # 0.2 10^3/uL (0.0-0.50); EOS % 1.4 % (0.0-3.0); HEMATOCRIT 19.3 % (42.0-52.0); IMMATURE GRANULOCYTE % 0.6 % (0-3.0); LYMPH # 3.3 10^3/uL (1.5-4.5); LYMPH % 22.1 % (24.0-44.0); MEAN CORPUSCULAR HEMOGLOBIN 28.7 pg (27.0-33.0); MEAN CORPUSCULAR HGB CONC 32.1 g/dl (32.0-36.5); MEAN CORPUSCULAR VOLUME 89.4 fl (80.0-96.0); MONO # 1.6 10^3/uL (0.0-0.8); MONO % 10.6 % (0.0-5.0); NEUTROPHILS # 9.7 10^3/uL (1.8-7.7); NEUTROPHILS % 65.1 % (36.0-66.0); PLATELET COUNT, AUTOMATED 733 10^3/uL (150-450); RED BLOOD COUNT 2.16 10^6/uL (4.30-6.10); RED CELL DISTRIBUTION WIDTH 15.6 % (11.5-14.5); WHITE BLOOD COUNT 14.8 10^3/uL (4.0-10.0)
[2017-05-08 06:18] LABS: HEMOGLOBIN 6.2 g/dl (14.0-18.0)
[2017-05-08 06:28] LABS: ALBUMIN 1.7 GM/DL (3.2-5.2); ALBUMIN/GLOBULIN RATIO 0.39 (1.00-1.93); ALKALINE PHOSPHATASE 75 U/L (45-117); ALT/SGPT 11 U/L (12-78); ANION GAP 7 MEQ/L (8-16); AST/SGOT 12 U/L (7-37); BILIRUBIN,TOTAL 0.2 MG/DL (0.2-1.0); BLOOD UREA NITROGEN 32 MG/DL (7-18); CALCIUM LEVEL 7.9 MG/DL (8.5-10.1); CARBON DIOXIDE LEVEL 27 MEQ/L (21-32); CHLORIDE LEVEL 103 MEQ/L (98-107); CREATININE FOR GFR 0.53 MG/DL (0.70-1.30); GLOMERULAR FILTRATION RATE > 60.0 (>56); GLUCOSE, FASTING 92 MG/DL (70-100); POTASSIUM SERUM 3.6 MEQ/L (3.5-5.1); SODIUM LEVEL 137 MEQ/L (136-145); TOTAL PROTEIN 6.1 GM/DL (6.4-8.2)
[2017-05-08 07:00] LABS: HEMATOCRIT 19.6 % (42.0-52.0)
[2017-05-08 07:07] LABS: HEMOGLOBIN 6.4 g/dl (14.0-18.0)
[2017-05-08] MEDS: ALBUTEROL SULFATE 2.5 MG/0.5 ML INH NEB SOLN NEB ×4 (07:11→19:25)
[2017-05-08 07:42] LABS: RETIC HEMOGLOBIN EQUIVALENT 31.6 pg (24-36); RETICULOCYTE # 53.6 10^9/L (17-77); RETICULOCYTE % 2.5 % (0.5-1.5)
[2017-05-08 07:52] LABS: FERRITIN 300 NG/ML (26-388); IRON (FE) 27 UG/DL (65-175); PERCENT SATURATION 14.4 % (19.7-50.0); TOTAL IRON BINDING CAPACITY 188 UG/DL (250-450)
[2017-05-08 08:22] LABS: IMMEDIATE SPIN CROSSMATCH 1 2
[2017-05-08] MEDS: PANTOPRAZOLE 40MG TAB (PROTONIX) PO (08:37)
[2017-05-08] MEDS: CEPHALEXIN 500 MG CAP PO ×2 (08:37→20:43)
[2017-05-08] MEDS: levETIRAcetam 250MG TABLET (KEPPRA) PO ×2 (08:37→20:43)
[2017-05-08] MEDS: PERCOCET 5MG/325MG TAB PO ×2 (15:34→22:15)
[2017-05-08] MEDS: GOLYTELY SOLN 4000 ML BTL PO (17:47)
[2017-05-08 19:17] LABS: HEMATOCRIT 27.9 % (42.0-52.0); HEMOGLOBIN 9.4 g/dl (14.0-18.0)
[2017-05-08] MEDS: ATORVASTATIN 20 MG TAB PO (20:43)
[2017-05-09] MEDS: SLF 3 ML SYR IV ×3 (05:40→21:07)
[2017-05-09 05:59] LABS: BASO % 0.3 % (0.0-1.0); EOS # 0.1 10^3/uL (0.0-0.50); EOS % 0.9 % (0.0-3.0); HEMATOCRIT 31.1 % (42.0-52.0); HEMOGLOBIN 10.4 g/dl (14.0-18.0); IMMATURE GRANULOCYTE % 0.7 % (0-3.0); LYMPH % 14.6 % (24.0-44.0); MEAN CORPUSCULAR HEMOGLOBIN 29.3 pg (27.0-33.0); MEAN CORPUSCULAR HGB CONC 33.4 g/dl (32.0-36.5); MEAN CORPUSCULAR VOLUME 87.6 fl (80.0-96.0); MONO % 15.4 % (0.0-5.0); NEUTROPHILS # 9.3 10^3/uL (1.8-7.7); NEUTROPHILS % 68.1 % (36.0-66.0); PLATELET COUNT, AUTOMATED 778 10^3/uL (150-450); RED BLOOD COUNT 3.55 10^6/uL (4.30-6.10); RED CELL DISTRIBUTION WIDTH 15.2 % (11.5-14.5); WHITE BLOOD COUNT 13.6 10^3/uL (4.0-10.0)
[2017-05-09 06:18] LABS: MONO # 2.1 10^3/uL (0.0-0.8); POSITIVE DIFF POS FLAG
[2017-05-09 06:23] LABS: ALBUMIN/GLOBULIN RATIO 0.39 (1.00-1.93); ALKALINE PHOSPHATASE 87 U/L (45-117); ALT/SGPT 14 U/L (12-78); ANION GAP 7 MEQ/L (8-16); AST/SGOT 11 U/L (7-37); BILIRUBIN,TOTAL 0.5 MG/DL (0.2-1.0); BLOOD UREA NITROGEN 11 MG/DL (7-18); CALCIUM LEVEL 8.4 MG/DL (8.5-10.1); CARBON DIOXIDE LEVEL 30 MEQ/L (21-32); CHLORIDE LEVEL 108 MEQ/L (98-107); CREATININE FOR GFR 0.42 MG/DL (0.70-1.30); GLOMERULAR FILTRATION RATE > 60.0 (>56); GLUCOSE, FASTING 92 MG/DL (70-100); POTASSIUM SERUM 3.6 MEQ/L (3.5-5.1); SODIUM LEVEL 145 MEQ/L (136-145); TOTAL PROTEIN 7.1 GM/DL (6.4-8.2)
[2017-05-09] MEDS: ALBUTEROL SULFATE 2.5 MG/0.5 ML INH NEB SOLN NEB ×4 (07:10→20:57)
[2017-05-09] MEDS: PANTOPRAZOLE 40MG TAB (PROTONIX) PO ×2 (08:33→19:57)
[2017-05-09] MEDS: levETIRAcetam 250MG TABLET (KEPPRA) PO ×3 (08:33→19:57)
[2017-05-09] MEDS: CEPHALEXIN 500 MG CAP PO ×3 (08:33→19:57)
[2017-05-09] MEDS ORDERED: fentaNYL 100 MCG/2 ML INJECTION (J3010) As Ordered (08:46)
[2017-05-09] MEDS ORDERED: PROPOFOL 500 MG/50 ML VIAL As Ordered (08:46)
[2017-05-09] MEDS ORDERED: PHENYLephrine HCL 500 MCG/5 ML (100MCG/ML) SYRINGE (J2370) As Ordered (08:46)
[2017-05-09] MEDS ORDERED: LIDOCAINE 2% INJ 100 MG/5 ML SDV (FOR ANES.) As Ordered (08:46)
[2017-05-09] MEDS: SUCRALFATE 1 GM TAB PO ×3 (13:05→19:56)
[2017-05-09] MEDS: PERCOCET 5MG/325MG TAB PO (17:14)
[2017-05-09] MEDS: ATORVASTATIN 20 MG TAB PO (19:56)
[2017-05-10] MEDS: PERCOCET 5MG/325MG TAB PO ×3 (00:26→20:23)
[2017-05-10] MEDS: SLF 3 ML SYR IV ×3 (05:08→20:23)
[2017-05-10 06:08] LABS: BASO % 0.2 % (0.0-1.0); EOS # 0.2 10^3/uL (0.0-0.50); EOS % 1.5 % (0.0-3.0); IMMATURE GRANULOCYTE % 0.5 % (0-3.0); LYMPH # 3.4 10^3/uL (1.5-4.5); LYMPH % 27.6 % (24.0-44.0); MEAN CORPUSCULAR HEMOGLOBIN 29.5 pg (27.0-33.0); MEAN CORPUSCULAR HGB CONC 33.3 g/dl (32.0-36.5); MEAN CORPUSCULAR VOLUME 88.5 fl (80.0-96.0); MONO # 2.2 10^3/uL (0.0-0.8); MONO % 18.5 % (0.0-5.0); NEUTROPHILS # 6.3 10^3/uL (1.8-7.7); NEUTROPHILS % 51.7 % (36.0-66.0); PLATELET COUNT, AUTOMATED 748 10^3/uL (150-450); POSITIVE DIFF POS FLAG; RED BLOOD COUNT 3.05 10^6/uL (4.30-6.10); RED CELL DISTRIBUTION WIDTH 15.5 % (11.5-14.5); WHITE BLOOD COUNT 12.1 10^3/uL (4.0-10.0)
[2017-05-10 06:27] LABS: ALBUMIN 1.7 GM/DL (3.2-5.2); ALBUMIN/GLOBULIN RATIO 0.38 (1.00-1.93); ALKALINE PHOSPHATASE 74 U/L (45-117); ALT/SGPT 11 U/L (12-78); ANION GAP 7 MEQ/L (8-16); AST/SGOT 8 U/L (7-37); BILIRUBIN,TOTAL 0.4 MG/DL (0.2-1.0); BLOOD UREA NITROGEN 7 MG/DL (7-18); CALCIUM LEVEL 8.2 MG/DL (8.5-10.1); CARBON DIOXIDE LEVEL 27 MEQ/L (21-32); CHLORIDE LEVEL 107 MEQ/L (98-107); CREATININE FOR GFR 0.43 MG/DL (0.70-1.30); GLOMERULAR FILTRATION RATE > 60.0 (>56); GLUCOSE, FASTING 91 MG/DL (70-100); POTASSIUM SERUM 3.5 MEQ/L (3.5-5.1); SODIUM LEVEL 141 MEQ/L (136-145); TOTAL PROTEIN 6.2 GM/DL (6.4-8.2)
[2017-05-10] MEDS: ALBUTEROL SULFATE 2.5 MG/0.5 ML INH NEB SOLN NEB ×4 (07:37→20:00)
[2017-05-10] MEDS: CEPHALEXIN 500 MG CAP PO ×2 (09:29→20:22)
[2017-05-10] MEDS: PANTOPRAZOLE 40MG TAB (PROTONIX) PO ×2 (09:29→20:22)
[2017-05-10] MEDS: SUCRALFATE 1 GM TAB PO ×4 (09:29→20:22)
[2017-05-10] MEDS: levETIRAcetam 250MG TABLET (KEPPRA) PO ×2 (09:29→20:22)
[2017-05-10] MEDS: ENOXAPARIN 40 MG/0.4 ML SYRINGE (J1650) SC (12:35)
[2017-05-10] MEDS: ATORVASTATIN 20 MG TAB PO (20:22)
[2017-05-11] MEDS: SLF 3 ML SYR IV ×3 (05:15→21:26)
[2017-05-11] MEDS: PERCOCET 5MG/325MG TAB PO ×4 (05:45→12:58)
[2017-05-11] MEDS: ALBUTEROL SULFATE 2.5 MG/0.5 ML INH NEB SOLN NEB ×4 (07:01→21:08)
[2017-05-11] MEDS: SUCRALFATE 1 GM TAB PO ×4 (07:57→21:26)
[2017-05-11] MEDS: ENOXAPARIN 40 MG/0.4 ML SYRINGE (J1650) SC (09:10)
[2017-05-11] MEDS: levETIRAcetam 250MG TABLET (KEPPRA) PO ×2 (09:10→21:26)
[2017-05-11] MEDS: PANTOPRAZOLE 40MG TAB (PROTONIX) PO ×2 (09:10→21:26)
[2017-05-11] MEDS: CEPHALEXIN 500 MG CAP PO ×2 (09:11→21:26)
[2017-05-11] MEDS: ATORVASTATIN 20 MG TAB PO (21:26)
[2017-05-12] MEDS: PERCOCET 5MG/325MG TAB PO ×3 (04:58→23:14)
[2017-05-12] MEDS: SLF 3 ML SYR IV ×3 (04:59→20:34)
[2017-05-12] MEDS: ALBUTEROL SULFATE 2.5 MG/0.5 ML INH NEB SOLN NEB ×4 (07:47→20:00)
[2017-05-12] MEDS: PANTOPRAZOLE 40MG TAB (PROTONIX) PO ×2 (08:32→20:33)
[2017-05-12] MEDS: CEPHALEXIN 500 MG CAP PO ×2 (08:32→20:33)
[2017-05-12] MEDS: ENOXAPARIN 40 MG/0.4 ML SYRINGE (J1650) SC (08:32)
[2017-05-12] MEDS: levETIRAcetam 250MG TABLET (KEPPRA) PO ×2 (08:32→20:33)
[2017-05-12] MEDS: SUCRALFATE 1 GM TAB PO ×4 (08:32→20:34)
[2017-05-12] MEDS: ATORVASTATIN 20 MG TAB PO (20:33)
[2017-05-13] MEDS: PERCOCET 5MG/325MG TAB PO ×2 (05:16→12:42)
[2017-05-13] MEDS: SLF 3 ML SYR IV ×3 (05:16→22:00)
[2017-05-13] MEDS: ALBUTEROL SULFATE 2.5 MG/0.5 ML INH NEB SOLN NEB ×4 (08:14→20:00)
[2017-05-13] MEDS: levETIRAcetam 250MG TABLET (KEPPRA) PO ×2 (08:33→20:17)
[2017-05-13] MEDS: ENOXAPARIN 40 MG/0.4 ML SYRINGE (J1650) SC (08:33)
[2017-05-13] MEDS: PANTOPRAZOLE 40MG TAB (PROTONIX) PO ×2 (08:33→20:17)
[2017-05-13] MEDS: CEPHALEXIN 500 MG CAP PO ×2 (08:33→20:17)
[2017-05-13] MEDS: SUCRALFATE 1 GM TAB PO ×4 (08:33→20:17)
[2017-05-13] MEDS: MIRALAX *UNIT DOSE* 17GM PACKET PO ×2 (12:44→20:16)
[2017-05-13] MEDS: SENOKOT S TAB PO ×2 (12:44→20:17)
[2017-05-13] MEDS: ATORVASTATIN 20 MG TAB PO (20:17)
[2017-05-13] MEDS: BISACODYL 10 MG SUPP PR (21:47)
[2017-05-13] MEDS: diphenhydrAMINE 25 MG CAP PO (22:50)
[2017-05-14] MEDS: PERCOCET 5MG/325MG TAB PO ×2 (03:29→10:33)
[2017-05-14] MEDS: SLF 3 ML SYR IV ×3 (06:00→22:00)
[2017-05-14] MEDS: ALBUTEROL SULFATE 2.5 MG/0.5 ML INH NEB SOLN NEB ×4 (07:23→21:56)
[2017-05-14] MEDS: SUCRALFATE 1 GM TAB PO ×4 (07:58→21:05)
[2017-05-14] MEDS: CEPHALEXIN 500 MG CAP PO ×2 (08:00→21:05)
[2017-05-14] MEDS: SENOKOT S TAB PO ×2 (08:00→21:04)
[2017-05-14] MEDS: PANTOPRAZOLE 40MG TAB (PROTONIX) PO ×2 (08:00→21:05)
[2017-05-14] MEDS: levETIRAcetam 250MG TABLET (KEPPRA) PO ×2 (08:00→21:05)
[2017-05-14] MEDS: MIRALAX *UNIT DOSE* 17GM PACKET PO ×2 (08:00→21:05)
[2017-05-14] MEDS: ENOXAPARIN 40 MG/0.4 ML SYRINGE (J1650) SC (08:01)
[2017-05-14] MEDS: ATORVASTATIN 20 MG TAB PO (21:05)
[2017-05-15] MEDS: PERCOCET 5MG/325MG TAB PO ×2 (00:49→08:52)
[2017-05-15 06:03] LABS: HEMATOCRIT 29.4 % (42.0-52.0); HEMOGLOBIN 9.5 g/dl (14.0-18.0); MEAN CORPUSCULAR HEMOGLOBIN 28.4 pg (27.0-33.0); MEAN CORPUSCULAR HGB CONC 32.3 g/dl (32.0-36.5); MEAN CORPUSCULAR VOLUME 87.8 fl (80.0-96.0); PLATELET COUNT, AUTOMATED 841 10^3/uL (150-450); RED BLOOD COUNT 3.35 10^6/uL (4.30-6.10); RED CELL DISTRIBUTION WIDTH 15.5 % (11.5-14.5); WHITE BLOOD COUNT 13.2 10^3/uL (4.0-10.0)
[2017-05-15 06:26] LABS: ANION GAP 10 MEQ/L (8-16); BLOOD UREA NITROGEN 12 MG/DL (7-18); CALCIUM LEVEL 8.5 MG/DL (8.5-10.1); CARBON DIOXIDE LEVEL 27 MEQ/L (21-32); CHLORIDE LEVEL 104 MEQ/L (98-107); CREATININE FOR GFR 0.48 MG/DL (0.70-1.30); GLOMERULAR FILTRATION RATE > 60.0 (>56); GLUCOSE, FASTING 93 MG/DL (70-100); POTASSIUM SERUM 3.6 MEQ/L (3.5-5.1); SODIUM LEVEL 141 MEQ/L (136-145)
[2017-05-15] MEDS: SUCRALFATE 1 GM TAB PO ×2 (06:30→12:00)
[2017-05-15] MEDS: SLF 3 ML SYR IV (06:30)
[2017-05-15] MEDS: ALBUTEROL SULFATE 2.5 MG/0.5 ML INH NEB SOLN NEB ×3 (07:21→16:09)
[2017-05-15] MEDS: MIRALAX *UNIT DOSE* 17GM PACKET PO (08:46)
[2017-05-15] MEDS: ENOXAPARIN 40 MG/0.4 ML SYRINGE (J1650) SC (08:46)
[2017-05-15] MEDS: SENOKOT S TAB PO (08:47)
[2017-05-15] MEDS: CEPHALEXIN 500 MG CAP PO (08:47)
[2017-05-15] MEDS: PANTOPRAZOLE 40MG TAB (PROTONIX) PO (08:47)
[2017-05-15] MEDS: levETIRAcetam 250MG TABLET (KEPPRA) PO (08:47)
== END 2017-05-15 18:00 | disposition home health service (06) | DRG 710 ==
LOC: M ED 23:16 → M MSPAV 04-24 14:12 → M ED INP 04-15 01:56 → M ICU 04-15 15:16 → M PCU 04-22 20:48
PROC: 0MD Bursae and Ligaments, Extraction (ICD-10-PCS; principal; 2017-05-02 10:00)
PROC: 0BH17EZ Insertion of Endotracheal Airway into Trachea, Via Natural or Artificial Opening (ICD-10-PCS; 2017-05-02 10:00)
PROC: 5A1955Z Respiratory Ventilation, Greater than 96 Consecutive Hours (ICD-10-PCS; 2017-05-02 10:00)
PROC: 02HV33Z Insertion of Infusion Device into Superior Vena Cava, Percutaneous Approach (ICD-10-PCS; 2017-05-02 10:00)
PROC: 009U3ZX Drainage of Spinal Canal, Percutaneous Approach, Diagnostic (ICD-10-PCS; 2017-05-02 10:00)
PROC: 0R9J3ZZ Drainage of Right Shoulder Joint, Percutaneous Approach (ICD-10-PCS; 2017-05-02 10:00)
PROC: 0DB78ZX Excision of Stomach, Pylorus, Via Natural or Artificial Opening Endoscopic, Diagnostic (ICD-10-PCS; 2017-05-02 10:00)
PROC: 0DBQ8ZX Excision of Anus, Via Natural or Artificial Opening Endoscopic, Diagnostic (ICD-10-PCS; 2017-05-02 10:00)
PROC: 30253N1 (ICD-10-PCS; 2017-05-02 10:00)
DX: A40.3 Sepsis due to Streptococcus pneumoniae (principal); J96.01 Acute respiratory failure with hypoxia; R65.21 Severe sepsis with septic shock; J13 Pneumonia due to Streptococcus pneumoniae; G00.2 Streptococcal meningitis; G93.41 Metabolic encephalopathy; N17.9 Acute kidney failure, unspecified; E87.0 Hyperosmolality and hypernatremia; D69.6 Thrombocytopenia, unspecified; E87.4 Mixed disorder of acid-base balance; M00.811 Arthritis due to other bacteria, right shoulder; K28.4 Chronic or unspecified gastrojejunal ulcer with hemorrhage; I47.1 Supraventricular tachycardia; I82.612 Acute embolism and thrombosis of superficial veins of left upper extremity; E78.5 Hyperlipidemia, unspecified; I10 Essential (primary) hypertension; G40.909 Epilepsy, unspecified, not intractable, without status epilepticus; F17.210 Nicotine dependence, cigarettes, uncomplicated; N40.0 Benign prostatic hyperplasia without lower urinary tract symptoms; F12.10 Cannabis abuse, uncomplicated; J98.11 Atelectasis; E87.6 Hypokalemia; K52.9 Noninfective gastroenteritis and colitis, unspecified; L50.0 Allergic urticaria; T36.95XA Adverse effect of unspecified systemic antibiotic, initial encounter; Z91.14 Patient's other noncompliance with medication regimen; I70.203 Unspecified atherosclerosis of native arteries of extremities, bilateral legs; M25.411 Effusion, right shoulder; M25.572 Pain in left ankle and joints of left foot; M75.101 Unspecified rotator cuff tear or rupture of right shoulder, not specified as traumatic; D50.0 Iron deficiency anemia secondary to blood loss (chronic); K44.9 Diaphragmatic hernia without obstruction or gangrene; K57.30 Diverticulosis of large intestine without perforation or abscess without bleeding; K62.0 Anal polyp; Z88.8 Allergy status to other drugs, medicaments and biological substances; Z79.899 Other long term (current) drug therapy; Z88.1 Allergy status to other antibiotic agents

== ENCOUNTER 2017-05-26 07:14 | Outpatient (RCR) | payer MEDICAID | END 2017-05-27 | LOC: M PT 07:14 | DX: Z51.89 Encounter for other specified aftercare (principal); Z74.09 Other reduced mobility ==

== ENCOUNTER 2017-06-01 09:50 | Outpatient (RCR) | payer MEDICAID | END 2017-06-27 | LOC: M PT 09:50 → M OT 06-23 07:00 → M PT 09:50 → M OT 06-23 07:00 → M PT 06-18 09:09 | DX: Z51.89 Encounter for other specified aftercare (principal); Z74.09 Other reduced mobility ==

== ENCOUNTER 2017-06-14 12:10 | Emergency (ER) | payer MEDICAID ==
[2017-06-14] MEDS: METOCLOPRAMIDE INJ 10MG/2ML VIAL (J2765) IV (13:00)
[2017-06-14] MEDS: NS 1,000 ML IV (13:00)
[2017-06-14] MEDS: KETOROLAC 30 MG/ML VIAL (J1885) IV (13:00)
[2017-06-14 13:09] LABS: BASO # 0.1 10^3/uL (0.0-0.2); BASO % 0.6 % (0.0-1.0); EOS # 0.2 10^3/uL (0.0-0.50); HEMATOCRIT 34.2 % (42.0-52.0); IMMATURE GRANULOCYTE % 0.5 % (0-3.0); LYMPH # 2.3 10^3/uL (1.5-4.5); MEAN CORPUSCULAR HEMOGLOBIN 28.3 pg (27.0-33.0); MEAN CORPUSCULAR HGB CONC 32.2 g/dl (32.0-36.5); MEAN CORPUSCULAR VOLUME 87.9 fl (80.0-96.0); MONO % 13.6 % (0.0-5.0); NEUTROPHILS # 9.9 10^3/uL (1.8-7.7); NEUTROPHILS % 68.3 % (36.0-66.0); PLATELET COUNT, AUTOMATED 591 10^3/uL (150-450); RED BLOOD COUNT 3.89 10^6/uL (4.30-6.10); RED CELL DISTRIBUTION WIDTH 16.3 % (11.5-14.5); WHITE BLOOD COUNT 14.5 10^3/uL (4.0-10.0)
[2017-06-14 13:22] LABS: ACETAMINOPHEN LEVEL < 2.0 UG/ML (10.0-30.0); ALBUMIN 2.8 GM/DL (3.2-5.2); ALBUMIN/GLOBULIN RATIO 0.62 (1.00-1.93); ALKALINE PHOSPHATASE 83 U/L (45-117); ALT/SGPT 12 U/L (12-78); ANION GAP 6 MEQ/L (8-16); AST/SGOT 7 U/L (7-37); BILIRUBIN,DIRECT < 0.1 MG/DL (0.0-0.2); BILIRUBIN,TOTAL 0.4 MG/DL (0.2-1.0); BLOOD UREA NITROGEN 13 MG/DL (7-18); CALCIUM LEVEL 8.4 MG/DL (8.5-10.1); CARBON DIOXIDE LEVEL 28 MEQ/L (21-32); CHLORIDE LEVEL 105 MEQ/L (98-107); CPK CREATINE PHOSPHOKINASE 15 U/L (39-308); CREATININE FOR GFR 0.44 MG/DL (0.70-1.30); GLOMERULAR FILTRATION RATE > 60.0 (>56); GLUCOSE, FASTING 104 MG/DL (70-100); POTASSIUM SERUM 3.8 MEQ/L (3.5-5.1); SALICYLATE LEVEL < 1.7 MG/DL (5.0-30.0); SODIUM LEVEL 139 MEQ/L (136-145); TOTAL PROTEIN 7.3 GM/DL (6.4-8.2); TROPONIN I < 0.02 NG/ML (< 0.10)
[2017-06-14 13:28] LABS: MB/CK RELATIVE INDEX 6.66 (< OR =4); THYROID STIMULATING HORMONE 0.628 uIU/ML (0.358-3.740)
[2017-06-14 13:32] LABS: ETHYL ALCOHOL (ETHANOL) < 0.003 % (0.000-0.010)
[2017-06-14 14:05] LABS: KETONE, URINE AUTO RFX NEGATIVE (NEGATIVE); LEUKOCYTE ESTERASE UR AUTO RFX NEGATIVE (NEGATIVE); NITRITE, URINE AUTO RFX NEGATIVE (NEGATIVE); RBC, URINE AUTO RFX 1 /HPF (0-3); SPECIFIC GRAVITY UR AUTO RFX 1.008 (1.002-1.035); SQUAM EPITHELIAL CELL UR AURFX 0 /HPF (0-6); WBC, URINE AUTO RFX 3 /HPF (0-3)
[2017-06-14 14:22] LABS: AMMONIA 26 uMOL/L (<32)
[2017-06-14 14:23] LABS: AMPHETAMINES LEVEL URINE NEGATIVE (NEGATIVE); BARBITURATES URINE NEGATIVE (NEGATIVE); BENZODIAZEPINES URINE NEGATIVE (NEGATIVE); CANNABINOIDS URINE NEGATIVE (NEGATIVE); COCAINE METABOLITE URINE NEGATIVE (NEGATIVE); METHADONE URINE NEGATIVE (NEGATIVE); OPIATES URINE NEGATIVE (NEGATIVE); PHENCYCLIDINE URINE NEGATIVE (NEGATIVE)
[2017-06-14 14:24] LABS: LACTIC ACID SEPSIS PROTOCOL 0.9 MMOL/L (0.4-2.0)
== END 2017-06-14 16:13 | disposition home or self-care (01) ==
LOC: M ED 12:10
DX: R51 Headache (principal); R11.2 Nausea with vomiting, unspecified; R10.9 Unspecified abdominal pain; I10 Essential (primary) hypertension; Z86.73 Personal history of transient ischemic attack (TIA), and cerebral infarction without residual deficits; F17.200 Nicotine dependence, unspecified, uncomplicated; Z88.1 Allergy status to other antibiotic agents; Z79.899 Other long term (current) drug therapy; Z79.2 Long term (current) use of antibiotics
CPT/HCPCS: J1885

== ENCOUNTER 2017-06-30 07:44 | Outpatient (RCR) | payer OTHER, MEDICAID | END 2017-07-27 | LOC: M OT 07:44 → M PT 07-09 07:51 → M OT 07:44 | DX: Z51.89 Encounter for other specified aftercare (principal); Z74.09 Other reduced mobility ==

== ENCOUNTER → 2017-09-09 | Outpatient (CLI) | payer OTHER | LOC: M WUC 10:22 | DX: M47.896 Other spondylosis, lumbar region (principal); M47.892 Other spondylosis, cervical region | CPT/HCPCS: 72052 ==

== ENCOUNTER 2017-09-29 08:39 | Emergency (ER) | payer OTHER | END 2017-09-29 09:31 | disposition home or self-care (01) | LOC: M ED 08:39 | DX: L03.011 Cellulitis of right finger (principal); Z88.0 Allergy status to penicillin; Z79.899 Other long term (current) drug therapy; Z87.891 Personal history of nicotine dependence | CPT/HCPCS: 99282 ==

== ENCOUNTER → 2017-10-07 | Outpatient (REF) | payer OTHER | LOC: M SFHCPLAZ 10:50 | DX: I10 Essential (primary) hypertension (principal) ==

== ENCOUNTER → 2017-10-08 | Outpatient (CLI) | payer OTHER ==
[2017-10-08 13:32] LABS: ANION GAP 9 MEQ/L (8-16); BLOOD UREA NITROGEN 11 MG/DL (7-18); CALCIUM LEVEL 8.4 MG/DL (8.5-10.1); CARBON DIOXIDE LEVEL 26 MEQ/L (21-32); CHLORIDE LEVEL 108 MEQ/L (98-107); CREATININE FOR GFR 0.67 MG/DL (0.70-1.30); GLOMERULAR FILTRATION RATE > 60.0 (>56); GLUCOSE, FASTING 84 MG/DL (70-100); POTASSIUM SERUM 4.4 MEQ/L (3.5-5.1); SODIUM LEVEL 143 MEQ/L (136-145)
== END ==
LOC: M WUC 08:29
DX: I10 Essential (primary) hypertension (principal)
CPT/HCPCS: 80048

== ENCOUNTER → 2017-10-12 | Outpatient (CLI) | payer OTHER | LOC: M CARPUL 12:28 | DX: Z87.891 Personal history of nicotine dependence (principal) | CPT/HCPCS: 94010 ==

== ENCOUNTER → 2017-11-18 | Outpatient (CLI) | payer OTHER ==
[2017-11-18 14:13] LABS: HEMATOCRIT 41.7 % (42.0-52.0); HEMOGLOBIN 13.4 g/dl (13.5-17.5); MEAN CORPUSCULAR HEMOGLOBIN 28.9 pg (27.0-33.0); MEAN CORPUSCULAR HGB CONC 32.1 g/dl (32.0-36.5); MEAN CORPUSCULAR VOLUME 90.1 fl (80.0-96.0); PLATELET COUNT, AUTOMATED 530 10^3/uL (150-450); RED BLOOD COUNT 4.63 10^6/uL (4.30-6.10); RED CELL DISTRIBUTION WIDTH 16.2 % (11.5-14.5); WHITE BLOOD COUNT 14.9 10^3/uL (4.0-10.0)
[2017-11-18 14:25] LABS: ANION GAP 8 MEQ/L (8-16); BLOOD UREA NITROGEN 21 MG/DL (7-18); CALCIUM LEVEL 8.7 MG/DL (8.5-10.1); CARBON DIOXIDE LEVEL 24 MEQ/L (21-32); CHLORIDE LEVEL 110 MEQ/L (98-107); CREATININE FOR GFR 0.65 MG/DL (0.70-1.30); GLOMERULAR FILTRATION RATE > 60.0 (>56); GLUCOSE, FASTING 92 MG/DL (70-100); POTASSIUM SERUM 4.5 MEQ/L (3.5-5.1); SODIUM LEVEL 142 MEQ/L (136-145)
== END ==
LOC: M WUC 09:09
DX: J98.4 Other disorders of lung (principal); I10 Essential (primary) hypertension
CPT/HCPCS: 80048

== ENCOUNTER 2017-12-08 12:33 | Emergency (ER) | payer OTHER | END 2017-12-08 13:31 | disposition home or self-care (01) | LOC: M ED 12:33 | DX: H65.01 Acute serous otitis media, right ear (principal); H72.2X1 Other marginal perforations of tympanic membrane, right ear; H61.22 Impacted cerumen, left ear; I10 Essential (primary) hypertension; Z87.891 Personal history of nicotine dependence; Z88.1 Allergy status to other antibiotic agents; Z79.899 Other long term (current) drug therapy | CPT/HCPCS: 99282 ==

== ENCOUNTER → 2017-12-23 | Outpatient (CLI) | payer OTHER ==
[2017-12-23 10:29] LABS: HEMOGLOBIN 14.4 g/dl (13.5-17.5); MEAN CORPUSCULAR HEMOGLOBIN 29.1 pg (27.0-33.0); MEAN CORPUSCULAR HGB CONC 32.7 g/dl (32.0-36.5); MEAN CORPUSCULAR VOLUME 88.9 fl (80.0-96.0); PLATELET COUNT, AUTOMATED 508 10^3/uL (150-450); RED BLOOD COUNT 4.95 10^6/uL (4.30-6.10); RED CELL DISTRIBUTION WIDTH 15.8 % (11.5-14.5); WHITE BLOOD COUNT 13.8 10^3/uL (4.0-10.0)
[2017-12-23 11:11] LABS: ANION GAP 8 MEQ/L (8-16); BLOOD UREA NITROGEN 16 MG/DL (7-18); CALCIUM LEVEL 9.4 MG/DL (8.5-10.1); CARBON DIOXIDE LEVEL 27 MEQ/L (21-32); CHLORIDE LEVEL 106 MEQ/L (98-107); CREATININE FOR GFR 0.76 MG/DL (0.70-1.30); GLOMERULAR FILTRATION RATE > 60.0 (>56); GLUCOSE, FASTING 93 MG/DL (70-100); POTASSIUM SERUM 4.9 MEQ/L (3.5-5.1); SODIUM LEVEL 141 MEQ/L (136-145); TROPONIN I < 0.02 NG/ML (< 0.10)
== END ==
LOC: M LAB 09:35
DX: R05 Cough (principal); R06.02 Shortness of breath; R07.9 Chest pain, unspecified
CPT/HCPCS: 71046

== ENCOUNTER 2018-05-03 09:46 | Emergency (ER) | payer OTHER ==
[~2018-05-03] VITALS: Ht 154.9 cm; Wt 73.2 kg
[~2018-05-03 09:46] MED LIST changes: +CEPH500C PO; +CETI10TA; +CLEO300C2 PO; +EAR6.5DR10; +FLUTISP; +KEFL500C17 PO; +KEPP250T5 PO; -LIDOCAINE 2% INJ 100 MG/5 ML SDV (FOR ANES.) As Ordered ONE; +LISI10TA4; -NS 1,000 ML IV ONE; +PANT40TA3 PO; +PATIENT COMMENT; -PROPOFOL 200 MG/20 ML VIAL As Ordered ONE; -PROPOFOL 500 MG/50 ML VIAL As Ordered ONE; +REGL10TA6 PO; +SUCR1TA PO; +TRAM50TA2 PO; +TYLE500T78 PO
[2018-05-03] MEDS ORDERED: ACETAMINOPHEN 325 MG TAB PO ONE (10:15)
--- NOTE | 2018-05-03 11:06 | REP ---
Left knee series: Five views. History: Left knee pain. Findings: Five views of the left knee demonstrate diffuse osteopenia. There is mild osteoarthritic spurring medially and laterally. No acute fracture is seen. No evidence of joint effusion. This study does not include the sunrise projection. Impression: Diffuse osteopenia. No fracture or other acute abnormality. The patient was unable to position himself for sunrise projection. Electronically Signed by Darnell Yu MD 05/03/2018 01:54 P
[2018-05-03 11:14] VITALS: BP 140/88
== END 2018-05-03 11:23 | disposition home or self-care (01) ==
LOC: M ED 09:46
DX: M25.562 Pain in left knee (principal); M85.862 Other specified disorders of bone density and structure, left lower leg; I10 Essential (primary) hypertension; F32.9 Major depressive disorder, single episode, unspecified; R51 Headache; Z87.891 Personal history of nicotine dependence; Z88.1 Allergy status to other antibiotic agents; Z79.899 Other long term (current) drug therapy

== ENCOUNTER 2018-05-31 08:49 | Emergency (ER) | payer OTHER ==
[~2018-05-31] VITALS: Ht 154.9 cm; Wt 74.1 kg
[2018-05-31] MEDS ORDERED: STOO1TAB2 (09:11)
[2018-05-31] MEDS ORDERED: NS 1,000 ML IV ONE (09:30)
[2018-05-31 09:47] LABS: BASO # 0.1 10^3/uL (0.0-0.2); BASO % 0.5 % (0.0-1.0); EOS # 0.1 10^3/uL (0.0-0.50); EOS % 0.9 % (0.0-3.0); HEMATOCRIT 47.5 % (42.0-52.0); HEMOGLOBIN 15.2 g/dl (13.5-17.5); LYMPH # 2.2 10^3/uL (1.5-4.5); MEAN CORPUSCULAR HEMOGLOBIN 28.6 pg (27.0-33.0); MEAN CORPUSCULAR VOLUME 89.5 fl (80.0-96.0); MONO # 1.6 10^3/uL (0.0-0.8); MONO % 11.1 % (0.0-5.0); NEUTROPHILS # 10.6 10^3/uL (1.8-7.7); NEUTROPHILS % 72.2 % (36.0-66.0); PLATELET COUNT, AUTOMATED 470 10^3/uL (150-450); RED BLOOD COUNT 5.31 10^6/uL (4.30-6.10); WHITE BLOOD COUNT 14.6 10^3/uL (4.0-10.0)
[2018-05-31] MEDS: GASTROGRAFIN SOLUTION 30ML PO SCH ×2 (09:49→10:20)
[2018-05-31 10:12] LABS: ALBUMIN 3.2 GM/DL (3.2-5.2); ALT/SGPT 22 U/L (12-78); AMYLASE 46 U/L (25-115); BILIRUBIN,DIRECT 0.1 MG/DL (0.0-0.2); BILIRUBIN,TOTAL 0.5 MG/DL (0.2-1.0); BLOOD UREA NITROGEN 15 MG/DL (7-18); CALCIUM LEVEL 8.5 MG/DL (8.5-10.1); CARBON DIOXIDE LEVEL 25 MEQ/L (21-32); CHLORIDE LEVEL 108 MEQ/L (98-107); GLOMERULAR FILTRATION RATE > 60.0 (>56); GLUCOSE, FASTING 80 MG/DL (70-100); LIPASE 142 U/L (73-393); POTASSIUM SERUM 3.9 MEQ/L (3.5-5.1); SODIUM LEVEL 140 MEQ/L (136-145); TOTAL PROTEIN 7.2 GM/DL (6.4-8.2)
[2018-05-31] MEDS ORDERED: ISOVUE-370 76% 100ML VIAL (Q9967) As Ordered ONE (11:10)
--- NOTE | 2018-05-31 12:14 | REP ---
CT ABDOMEN AND PELVIS WITH ORAL AND IV CONTRAST: TECHNIQUE: Axial contrast enhanced images from the lung bases to the pubic symphysis using 100 mL Isovue 370 intravenous contrast material with multiplanar reformations. Visualized lung bases demonstrate mild fibrotic change. The liver demonstrates no mass. The patient has had a prior cholecystectomy. There is mild prominence of the common bile duct as expected. The spleen is not visualized presumably status post splenectomy. Adrenals, pancreas and kidneys are unremarkable. There is no hydronephrosis. There is no abdominal aortic aneurysm. There is no adenopathy. There is no free air or free fluid. No bowel wall thickening is seen. There is sigmoid and left colonic diverticulosis without acute diverticulitis. The appendix is normal. No pelvic mass is see. Urinary bladder is unremarkable. Prostate is enlarged. There are degenerative changes of the spine. A small umbilical hernia contains fat. IMPRESSION: No acute abnormalities. No free air or free fluid. No evidence of bowel obstruction or inflammation. Sigmoid diverticulosis without acute diverticulitis. Patient is status post cholecystectomy. Electronically Signed by Pancho Gotti MD 05/31/2018 05:41 P
[2018-05-31] MEDS ORDERED: GOLYTELY SOLN 4000 ML BTL PO ONE (12:15)
[2018-05-31 12:18] VITALS: BP 150/83
== END 2018-05-31 12:41 | disposition home or self-care (01) ==
LOC: M ED 08:49
DX: K59.00 Constipation, unspecified (principal); I25.2 Old myocardial infarction; F32.9 Major depressive disorder, single episode, unspecified; Z86.718 Personal history of other venous thrombosis and embolism; Z86.19 Personal history of other infectious and parasitic diseases; Z87.891 Personal history of nicotine dependence; Z88.0 Allergy status to penicillin; Z88.1 Allergy status to other antibiotic agents; Z79.899 Other long term (current) drug therapy
CPT/HCPCS: 74177; 80048; 80076; 81001; 82150; 83690; 85025; 99284; Q9963; Q9967

== ENCOUNTER 2018-07-08 14:50 | Inpatient (IN) | payer OTHER ==
[~2018-07-08] VITALS: Ht 154.9 cm; Wt 72.5 kg
[2018-07-08] MEDS: levETIRAcetam 250MG TABLET (KEPPRA) PO SCH ×2 (09:00→23:21)
[~2018-07-08 14:50] MED LIST changes: +STOO1TAB2
[2018-07-08] MEDS ORDERED: IPRATROPIUM 0.5MG/ALBUTEROL 2.5MG INH SOL UD 3ML (DUONEB)(J7620) NEB PRN (15:15)
--- NOTE | 2018-07-08 15:58 | REP ---
Chest x-ray: Two views. History: Dyspnea. Cough. Comparison study: December 23, 2017. Findings: The lungs are symmetrically aerated and free of infiltrate. Interstitial markings are slightly prominent. Heart is not enlarged. There is ectasia of the thoracic aorta and the main pulmonary artery segment left heart border is prominent unchanged from comparison study. The pleural angles are sharp. There are advanced degenerative changes in the shoulders. There are surgical clips in right upper quadrant of the abdomen. Impression: Mildly prominent heart. No acute infiltrate. Prominent main pulmonary artery question pulmonary hypertension. Tortuous aorta. No acute finding. Electronically Signed by Darnell Yu MD 07/08/2018 06:53 P
[2018-07-08 16:04] LABS: BASO # 0.1 10^3/uL (0.0-0.2); BASO % 0.4 % (0.0-1.0); EOS # 0.1 10^3/uL (0.0-0.50); EOS % 0.6 % (0.0-3.0); HEMATOCRIT 41.7 % (42.0-52.0); HEMOGLOBIN 13.7 g/dl (13.5-17.5); LYMPH # 1.6 10^3/uL (1.5-4.5); LYMPH % 9.8 % (24.0-44.0); MEAN CORPUSCULAR HEMOGLOBIN 29.1 pg (27.0-33.0); MEAN CORPUSCULAR HGB CONC 32.9 g/dl (32.0-36.5); MEAN CORPUSCULAR VOLUME 88.5 fl (80.0-96.0); MONO % 14.7 % (0.0-5.0); NEUTROPHILS # 11.7 10^3/uL (1.8-7.7); NEUTROPHILS % 74.2 % (36.0-66.0); PLATELET COUNT, AUTOMATED 496 10^3/uL (150-450); RED BLOOD COUNT 4.71 10^6/uL (4.30-6.10); WHITE BLOOD COUNT 15.8 10^3/uL (4.0-10.0)
--- NOTE | 2018-07-08 16:08 | ECGEPIP ---
Stationary ECG Study [facility] - ED Test Date: 2018-07-08 Pat Name: MARIA AUSTIN Department: Room: - Gender: M [employer] Operator: ion : 1960 Requested By: MARICARMEN Velasco PA-C Order Number: [id number] Reading MD: Lewis Adames Measurements Intervals [place] Rate: 87 P: 46 MD: 159 QRS: -58 QRSD: 110 T: 68 QT: 356 QTc: 431 Interpretive Statements SINUS RHYTHM PATTERN CONSISTENT WITH PULMONARY DISEASE Left anterior fascicular block Similar to tracing done 06-14-17 Electronically Signed On 07-08-2018 16:08:10 EDT by Lewis Adames
[2018-07-08 16:20] LABS: INFLUENZA A AMPLIFICATION NEGATIVE (NEGATIVE); INFLUENZA B AMPLIFICATION NEGATIVE (NEGATIVE)
[2018-07-08 16:23] LABS: MONO # 2.3 10^3/uL (0.0-0.8)
[2018-07-08 16:29] LABS: ALBUMIN 2.9 GM/DL (3.2-5.2); ALT/SGPT 26 U/L (12-78); BILIRUBIN,DIRECT < 0.1 MG/DL (0.0-0.2); BILIRUBIN,TOTAL 0.2 MG/DL (0.2-1.0); BLOOD UREA NITROGEN 13 MG/DL (7-18); CALCIUM LEVEL 8.5 MG/DL (8.5-10.1); CARBON DIOXIDE LEVEL 24 MEQ/L (21-32); CHLORIDE LEVEL 109 MEQ/L (98-107); CPK CREATINE PHOSPHOKINASE 31 U/L (39-308); CREATININE FOR GFR 0.68 MG/DL (0.70-1.30); GLOMERULAR FILTRATION RATE > 60.0 (>56); GLUCOSE, FASTING 108 MG/DL (70-100); MB/CK RELATIVE INDEX 3.87 (< OR =4); NT-PRO BNP 153 PG/ML (<125); POTASSIUM SERUM 3.5 MEQ/L (3.5-5.1); SODIUM LEVEL 140 MEQ/L (136-145); TOTAL PROTEIN 7.2 GM/DL (6.4-8.2); TROPONIN I < 0.02 NG/ML (< 0.10)
[2018-07-08] MEDS ORDERED: ISOVUE-370 76% 100ML VIAL (Q9967) As Ordered ONE (17:34)
[2018-07-08] MEDS ORDERED: FUROSEMIDE 40 MG/4 ML VIAL (J1940) IV ONE (19:00)
--- NOTE | 2018-07-08 19:23 | REP ---
CT ANGIOGRAM CHEST: TECHNIQUE: Axial contrast enhanced images from the thoracic inlet to the upper abdomen using 100 mL Isovue 370 intravenous contrast material with multiplanar reformations. There is no CT evidence of pulmonary embolism. The pulmonary trunk is dilated, with moderate dilatation, also of the left central pulmonary artery. The pulmonary trunk has a width of about 4.9 cm. No pulmonary embolism is seen. There is no thoracic aortic aneurysm or dissection. The heart is mildly enlarged. There is no pleural or pericardial effusion. No significant adenopathy is seen in the axillary, mediastinal or hilar regions. There is mild diffuse increase in interstitial markings with some scattered hazy ground glass opacity suggesting mild bilateral fibroatelectatic change or interstitial edema. There are degenerative changes of the spine without compression deformity of thoracic vertebral bodies. IMPRESSION: No CT evidence of pulmonary embolism. No aortic dissection. Mild cardiomegaly. Dilated pulmonary trunk. Mild diffuse fibroatelectatic change versus interstitial edema. Electronically Signed by Pancho Gotti MD 07/08/2018 08:43 P
[2018-07-08] MEDS ORDERED: MOM 30ML SUSPENSION UDC PO PRN (20:30)
[2018-07-08] MEDS ORDERED: FLUTISP NARES (20:53)
[2018-07-08] MEDS ORDERED: KEPP1TAB PO (20:53)
[2018-07-08] MEDS ORDERED: CETI10TA4 PO (20:53)
[2018-07-08] MEDS ORDERED: SUCR1TAB56 PO (20:53)
[2018-07-08] MEDS ORDERED: SENN1TAB36 PO (20:53)
[2018-07-08] MEDS ORDERED: ATOR1TAB21 PO (20:53)
[2018-07-08] MEDS ORDERED: VENTAER INH (20:53)
[2018-07-08] MEDS ORDERED: LISI10TA4 PO (20:53)
[2018-07-08] MEDS ORDERED: ATORVASTATIN 20 MG TAB PO SCH (21:00)
--- NOTE | 2018-07-08 21:19 | HPEPDOC ---
General Date of Admission 07/08/18 Attending Physician: BRIAN WILLSON MD Chief Complaint The patient is a 57-year-old male admitted with a reason for visit of Cold Symptoms. Source: Patient, Old records Exam Limitations: No limitations History of Present Illness 57 year old male with PMH of hypertension, hyperlipidemia, splenectomy in the remote past, overwhelming pneumococcal sepsis with secondary meningitis in mar 2017, Diastolic dysfunction presented to the ED with 2 days history of shortness of breath. He had cold like symptoms about 4 days ago with nasal congestion and some sore throat. He took over the counter advil cold which improved his cold symptoms but then he started becoming sob 2 days ago which really worsened last night so that he could not even lay down in bed. e normally uses 2 pillow but yesterday he was needing 4 pillows. he also noticed increased swelling of his feet . In the ED he had a CT angio of the chest pulmonary embolism. No aortic dissection. Mild cardiomegaly. Dilated pulmonary trunk. Mild diffuse fibroatelectatic change versus interstitial edema. Patient is being admitted for possible Diastolic CHF. Home Medications Scheduled Atorvastatin Calcium (Atorvastatin Calcium) 20 Mg Tab, 40 MG PO QHS Sucralfate (Sucralfate) 1 Gm Tab, 1 GM PO ACHS Miscellaneous Medications Cetirizine HCl (Cetirizine HCl) 10 Mg Tab, (Reported) Fluticasone Propionate (Fluticasone Propionate) 50 Mcg/Act Spr, (Reported) Lisinopril (Lisinopril) 10 Mg Tab, (Reported) Sennosides/Docusate Sodium (Stool Softener-Laxative Tablet) 1 Tab Tab, (Reported) Allergies Coded Allergies: piperacillin (Verified Allergy, Intermediate, hives, 07/08/18) tazobactam (Verified Allergy, Intermediate, hives, 07/08/18) Past Medical History Medical History Hypertension, hyperlipidemia, overwhelming pneumococcal sepsis with secondary meningitis in mar 2017 requiring intubation and ventilation Diastolic dysfunction, Demand ischemia in mar 2017, SVT, cephalic vein thrombosis in mar 2017 Seizure disorder bilateral rotator cuff tear Left ear cholesteatoma chronic constipation Surgical History cholecystectomy 1982 Spleenectomy 1967 Social History * Smoker: former Smoker, quit greater than 1 year, greater than 1 pack/day Alcohol: Denies Drugs: denies Review of Systems Constitutional: Denies: Chills, Fever, Malaise ENT: Reports: Sinus Congestion, Post Nasal Drip, Sore Throat Pulmonary: Reports: Dyspnea, Cough Cardiovascular: Reports: Orthopnea, Edema Gastrointestinal: Reports: Constipation; Denies: Nausea, Vomiting, Abdominal Pain, Diarrhea Endocrine: Denies: Polydipsia, Polyphagia, Polyuria Musculoskeletal: Denies: Neck Pain, Back Pain, Shoulder Pain Physical Examination General Exam: Positive: Alert, Cooperative, No Acute Distress Eye Exam: Positive: PERRLA, Conjunctiva & lids normal, EOMI; Negative: Sclera icteric ENT Exam: Positive: Atraumatic, Mucous membr. moist/pink, Pharynx Normal Neck Exam: Positive: Supple, JVD Chest Exam: Positive: Other (fine bilateral basal crackles) Heart Exam: Positive: Rate Normal, Regular Rhythm, Normal S1, Normal S2; Negative: Murmurs, Rubs Abdomen Exam: Positive: Normal bowel sounds, Soft, Other (obese) Extremity Exam: Positive: Edema, Swelling Vital Signs Vital Signs Date Time Temp Pulse Resp B/P (MAP) Pulse Ox O2 Delivery O2 Flow Rate FiO2 07/08/18 20:13 128/82 (97) 07/08/18 19:23 85 20 95 Room Air 07/08/18 14:50 96.9 Laboratory Data Labs 24H Laboratory Tests 2 07/08/18 15:16: Influenza Type A (RT-PCR) NEGATIVE, Influenza Type B (RT-PCR) NEGATIVE 07/08/18 15:49: Immature Granulocyte % (Auto) 0.3, White Blood Count 15.8H, Red Blood Count 4.71, Hemoglobin 13.7, Hematocrit 41.7L, Mean Corpuscular Volume 88.5, Mean Corpuscular Hemoglobin 29.1, Mean Corpuscular Hemoglobin Concent 32.9, Red Cell Distribution Width 16.4H, Platelet Count 496H, Neutrophils (%) (Auto) 74.2H, Lymphocytes (%) (Auto) 9.8L, Monocytes (%) (Auto) 14.7H, Eosinophils (%) (Auto) 0.6, Basophils (%) (Auto) 0.4, Neutrophils # (Auto) 11.7H, Lymphocytes # (Auto) 1.6, Monocytes # (Auto) 2.3H, Eosinophils # (Auto) 0.1, Basophils # (Auto) 0.1, Nucleated Red Blood Cells % (auto) 0.0, Anion Gap 7L, Glomerular Filtration Rate > 60.0, Calcium Level 8.5, Aspartate Amino Transf (AST/SGOT) 14, Alanine Aminotransferase (ALT/SGPT) 26, Alkaline Phosphatase 118H, Total Bilirubin 0.2, Direct Bilirubin < 0.1, Total Creatine Kinase 31L, Creatine Kinase MB 1.0, Creatine Kinase MB Relative Index 3.87, Troponin I < 0.02, IL-Vwc-R-Type Natriu retic Peptide 153H, Total Protein 7.2, Albumin 2.9L, Albumin/Globulin Ratio 0.67L CBC/BMP Laboratory Tests 07/08/18 15:49 Red Blood Count 4.71, Mean Corpuscular Volume 88.5, Mean Corpuscular Hemoglobin 29.1, Mean Corpuscular Hemoglobin Concent 32.9, Red Cell Distribution Width 16.4 H, Neutrophils (%) (Auto) 74.2 H, Lymphocytes (%) (Auto) 9.8 L, Monocytes (%) (Auto) 14.7 H, Eosinophils (%) (Auto) 0.6, Basophils (%) (Auto) 0.4, Neutrophils # (Auto) 11.7 H, Lymphocytes # (Auto) 1.6, Monocytes # (Auto) 2.3 H, Eosinophils # (Auto) 0.1, Basophils # (Auto) 0.1 Microbiology Microbiology 07/08/18 Blood Culture, Received Pending 07/08/18 Blood Culture, Received Pending 07/08/18 Gram Stain, Received Pending 07/08/18 Sputum Culture, Received Pending Assessment/Plan 57 year old male with PMH of hypertension, hyperlipidemia, seizure disorder, constipation, splenectomy in the remote past, overwhelming pneumococcal sepsis with secondary meningitis in mar 2017, Diastolic dysfunction presented to the ED with 2 days history of shortness of breath. He had cold like symptoms about 4 days ago with nasal congestion and some sore throat. He took over the counter advil cold which improved his cold symptoms but then he started becoming sob 2 days ago which really worsened last night so that he could not even lay down in bed. e normally uses 2 pillow but yesterday he was needing 4 pillows. he also noticed increased swelling of his feet . In the ED he had a CT angio of the [place] st pulmonary embolism. No aortic dissection. Mild cardiomegaly. Dilated pulmonary trunk. Mild diffuse fibroatelectatic change versus interstitial edema. Patient is being admitted for possible Diastolic CHF. Diastolic CHF exacerbation with possible pulmonary hypertension and corpulmonale. Echo from 2018 reviewed Had EF of 555 and diastolic dysfunction grade 1. will get new echo lasix 1v to continue 2 gm sodium diet with 1.5 liters fluid restriction Hypertension bp controlled at present will continue with lisinopril with hold parameters to allow for diuresis. Hyperlipidemia continue stain. Seizure disorder continue keppra. DVT prophylaxis ordered. Plan / VTE VTE Prophylaxis Ordered?: Yes BRIAN WILLSON MD Jul 08, 2018 21:19
[2018-07-08] MEDS ORDERED: ALBUTEROL SULFATE 2.5 MG/0.5 ML INH NEB SOLN NEB PRN (21:30)
[2018-07-08 22:25] VITALS: BP 160/98
[2018-07-08] MEDS: CETIRIZINE (ZyrTEC) 10 MG TAB PO SCH (23:21)
[2018-07-08] MEDS: LISINOPRIL 10 MG TAB PO SCH (23:21)
[2018-07-08] MEDS: SENOKOT S TAB PO SCH (23:22)
[2018-07-08] MEDS: ATORVASTATIN 20 MG TAB PO SCH (23:22)
[2018-07-09] MEDS: FUROSEMIDE 40 MG/4 ML VIAL (J1940) IV SCH ×2 (02:48→09:59)
[2018-07-09] MEDS ORDERED: ACETAMINOPHEN TAB 650MG DOSE (2X325MG) PO ONE (03:15)
[2018-07-09 06:00] VITALS: BP 92/50
[2018-07-09 06:06] LABS: BASO # 0.1 10^3/uL (0.0-0.2); BASO % 0.5 % (0.0-1.0); EOS # 0.1 10^3/uL (0.0-0.50); HEMATOCRIT 41.9 % (42.0-52.0); HEMOGLOBIN 13.7 g/dl (13.5-17.5); LYMPH # 1.7 10^3/uL (1.5-4.5); LYMPH % 11.3 % (24.0-44.0); MEAN CORPUSCULAR HEMOGLOBIN 28.2 pg (27.0-33.0); MEAN CORPUSCULAR HGB CONC 32.7 g/dl (32.0-36.5); MEAN CORPUSCULAR VOLUME 86.2 fl (80.0-96.0); NEUTROPHILS # 10.2 10^3/uL (1.8-7.7); NEUTROPHILS % 69.7 % (36.0-66.0); PLATELET COUNT, AUTOMATED 497 10^3/uL (150-450); RED BLOOD COUNT 4.86 10^6/uL (4.30-6.10); WHITE BLOOD COUNT 14.6 10^3/uL (4.0-10.0)
[2018-07-09 06:23] LABS: BLOOD UREA NITROGEN 13 MG/DL (7-18); CALCIUM LEVEL 8.5 MG/DL (8.5-10.1); CARBON DIOXIDE LEVEL 26 MEQ/L (21-32); CHLORIDE LEVEL 108 MEQ/L (98-107); CREATININE FOR GFR 0.84 MG/DL (0.70-1.30); GLOMERULAR FILTRATION RATE > 60.0 (>56); GLUCOSE, FASTING 104 MG/DL (70-100); POTASSIUM SERUM 3.3 MEQ/L (3.5-5.1); SODIUM LEVEL 142 MEQ/L (136-145)
[2018-07-09 07:04] LABS: MONO # 2.5 10^3/uL (0.0-0.8)
[2018-07-09 07:35] VITALS: BP 92/56
[2018-07-09] MEDS: SUCRALFATE 1 GM TAB PO SCH ×2 (09:51→20:40)
[2018-07-09] MEDS: SENOKOT S TAB PO SCH ×2 (09:51→20:40)
[2018-07-09] MEDS: levETIRAcetam 250MG TABLET (KEPPRA) PO SCH ×2 (09:51→20:40)
[2018-07-09] MEDS: ENOXAPARIN 40 MG/0.4 ML SYRINGE (J1650) SC SCH (09:52)
[2018-07-09 09:55] VITALS: BP 98/60
[2018-07-09 14:00] VITALS: BP 148/82
[2018-07-09] MEDS: ACETAMINOPHEN TAB 650MG DOSE (2X325MG) PO PRN ×2 (15:13→22:00)
--- NOTE | 2018-07-09 16:48 | IPNPDOC ---
Date Seen The patient was seen on 07/09/18. Progress Note SUBJECTIVE: Patient reports to me that his breathing is much better he feels as though he is getting back to his normal he denies fevers chills cough any shortness of breath at this time nausea vomiting or diarrhea OBJECTIVE PHYSICAL EXAMINATION: VITAL SIGNS: Please see below. GENERAL: Disheveled elderly obese man sitting in a chair in no acute distress he has a strange affect which is his baseline HEENT: cranial nerves II through XII are grossly intact CARDIOVASCULAR: S1-S2 regular. RESPIRATORY: Good air movement throughout all lung caal and no rails. ABDOMINAL: Obese bowel sounds present abdomen soft EXTREMITIES: 1+ edema bilaterally LABORATORY DATA, IMAGING STUDIES, MICROBIOLOGY: Please see below. Echocardiogram: Ordered. DVT prophylaxis ordered?: Lovenox ASSESSMENT AND PLAN: This is a 57-year-old man with shortness of breath. PROBLEMS: 1. Shortness of breath: Patient complaining of cold-like symptoms with nasal congestion sore throat for the last 4 days however he is progressively becoming more short of breath without improvement with orthopnea popping and presented to the emergency room. Likely decompensated congestive heart failure and tachycardic and was pending we are suspicious for diastolic dysfunction. I suspect his decompensation is secondary to his rhinovirus infection. He is adequately diuresing quite well I will decrease his IV diuretic and place hold parameters for hypotension is continued on lisinopril them other treatment when necessary supportive care 2. Hypertension: Controlled with lisinopril actively undergoing IV diuresis and monitor his renal function and blood pressure closely. 3. Seizure disorder: Continue with Keppra. 4. Dyslipidemia: Continue with statin DISPOSITION: Pending echo clinical improvement PTOT. VS, I&O, 24H, Fishbone Vital Signs/I&O Vital Signs Date Time Temp Pulse Resp B/P (MAP) Pulse Ox O2 Delivery O2 Flow Rate FiO2 07/09/18 14:00 97.5 84 17 148/82 (104) 94 07/08/18 22:14 Room Air I&O- Last 24 Hours up to 6 AM 07/09/18 06:00 Intake Total 0 ml Output Total 853 ml Balance -853 ml Laboratory Data 24H LABS Laboratory Tests 2 07/09/18 05:25: Immature Granulocyte % (Auto) 0.5, White Blood Count 14.6H, Red Blood Count 4.86, Hemoglobin 13.7, Hematocrit 41.9L, Mean Corpuscular Volume 86.2, Mean Corpuscular Hemoglobin 28.2, Mean Corpuscular Hemoglobin Concent 32.7, Red Cell Distribution Width 16.5H, Platelet Count 497H, Neutrophils (%) (Auto) 69.7H, Lymphocytes (%) (Auto) 11.3L, Monocytes (%) (Auto) 17.0H, Eosinophils (%) (Auto) 1.0, Basophils (%) (Auto) 0.5, Neutrophils # (Auto) 10.2H, Lymphocytes # (Auto) 1.7, Monocytes # (Auto) 2.5H, Eosinophils # (Auto) 0.1, Basophils # (Auto) 0.1, Nucleated Red Blood Cells % (auto) 0.0, Anion Gap 8, Glomerular Filtration Rate > 60.0, Blood Urea Nitrogen 13, Creatinine 0.84, Sodium Level 142, Potassium Level 3.3L, Chloride Level 108H, Carbon Dioxide Level 26, Calcium Level 8.5 CBC/BMP Laboratory Tests 07/09/18 05:25 Red Blood Count 4.86, Mean Corpuscular Volume 86.2, Mean Corpuscular Hemoglobin 28.2, Mean Corpuscular Hemoglobin Concent 32.7, Red Cell Distribution Width 16.5 H, Neutrophils (%) (Auto) 69.7 H, Lymphocytes (%) (Auto) 11.3 L, Monocytes (%) (Auto) 17.0 H, Eosinophils (%) (Auto) 1.0, Basophils (%) (Auto) 0.5, Neutrophils # (Auto) 10.2 H, Lymphocytes # (Auto) 1.7, Monocytes # (Auto) 2.5 H, Eosinophils # (Auto) 0.1, Basophils # (Auto) 0.1, Calcium Level 8.5 Microbiology Microbiology 07/08/18 Blood Culture - Preliminary, Resulted No growth after 24 hours . All specim... 07/08/18 Blood Culture - Preliminary, Resulted No growth after 24 hours . All specim... 07/09/18 Respiratory Virus Panel (PCR) ([facility]) - Final, Complete Human Rhinovirus/Enterovirus 07/08/18 Gram Stain - Final, Resulted 07/08/18 Sputum Culture, Resulted Pending SHIKHA HORN MD Jul 09, 2018 16:48
[2018-07-09] MEDS ORDERED: POTASSIUM CHLORIDE 10 MEQ SR TABLET PO ONE (17:00)
[2018-07-09 17:45] VITALS: BP 102/70
[2018-07-09] MEDS: FUROSEMIDE 20 MG/2 ML VIAL (J1940) IV SCH (17:45)
--- NOTE | 2018-07-09 19:06 | ECHO ---
DATE OF PROCEDURE: 07/09/2018 Date of : 1960 Age: 57 Gender: Male Height: 61 inches Weight: 165 pounds Body surface area: 1.73 meters squared Inpatient: [address] [place] [address], room 4234 REFERRING PHYSICIAN: Dr. Dayanara Rogers INDICATION: Congestive heart failure (CHF). MEASUREMENTS: 2D measurements: RV: 3.4 cm LV: 4.2 cm Septum: 1.1 cm Posterior wall: 1.1 cm Aortic root: 3.0 cm LA: 3.7 cm LVEF: 75% Doppler measurements: AV: 1.2 meters per second LVOT: 1.1 meters per second LVOT diameter: 1.8 cm MV-E: 74, A: 95, EA ratio: 0.8 Early mitral deceleration time: 299 milliseconds E prime: 7, A prime: 9.5, E/E prime ratio: 10.6 PV: Inaccurate. RVSP: 34 mmHg IVC: 1.9 cm COMMENTS: Normal sinus rhythm without intraventricular conduction disturbance. Somewhat technically challenging in light of the patient's body habitus but diagnostically useful information was still obtained. M-mode and two-dimensional echocardiography was performed along with pulsed, continuous wave, color flow and tissue Doppler studies. Normal left ventricular size and wall thickness with hyperkinetic wall motion. Left atrial size upper limits of normal with Doppler evidence of a degree of left ventricular (LV) diastolic dysfunction but currently normal estimated mean left atrial pressure. Normal right heart chamber sizes and motion with Doppler evidence of mild pulmonary hypertension. Normal inferior vena cava (IVC) size and collapse against an elevated central venous pressure. Aortic valvular sclerosis without stenosis and only trace insufficiency. Normal appearing mitral valvular apparatus and leaflet excursion with no posterior systolic buckling. No mitral insufficiency. Normal appearing tricuspid valve with mild insufficiency. No apparent intracardiac mass or pericardial effusion.
[2018-07-09] MEDS: CETIRIZINE (ZyrTEC) 10 MG TAB PO SCH (20:40)
[2018-07-09] MEDS: ATORVASTATIN 20 MG TAB PO SCH (20:40)
[2018-07-09] MEDS: LISINOPRIL 10 MG TAB PO SCH (20:45)
[2018-07-09 22:00] VITALS: BP 112/62
[2018-07-10] MEDS: ACETAMINOPHEN TAB 650MG DOSE (2X325MG) PO PRN ×3 (04:23→20:46)
[2018-07-10 06:00] VITALS: BP 114/71
[2018-07-10 06:36] LABS: BASO # 0.1 10^3/uL (0.0-0.2); BASO % 0.6 % (0.0-1.0); EOS # 0.3 10^3/uL (0.0-0.50); EOS % 1.9 % (0.0-3.0); HEMATOCRIT 41.5 % (42.0-52.0); HEMOGLOBIN 13.6 g/dl (13.5-17.5); LYMPH # 2.4 10^3/uL (1.5-4.5); LYMPH % 17.2 % (24.0-44.0); MEAN CORPUSCULAR HGB CONC 32.8 g/dl (32.0-36.5); MEAN CORPUSCULAR VOLUME 88.5 fl (80.0-96.0); MONO % 17.8 % (0.0-5.0); NEUTROPHILS # 8.6 10^3/uL (1.8-7.7); PLATELET COUNT, AUTOMATED 494 10^3/uL (150-450); RED BLOOD COUNT 4.69 10^6/uL (4.30-6.10)
[2018-07-10 07:04] LABS: MONO # 2.5 10^3/uL (0.0-0.8)
[2018-07-10 07:05] LABS: BLOOD UREA NITROGEN 21 MG/DL (7-18); CALCIUM LEVEL 8.4 MG/DL (8.5-10.1); CARBON DIOXIDE LEVEL 24 MEQ/L (21-32); CHLORIDE LEVEL 109 MEQ/L (98-107); CREATININE FOR GFR 0.71 MG/DL (0.70-1.30); GLOMERULAR FILTRATION RATE > 60.0 (>56); GLUCOSE, FASTING 104 MG/DL (70-100); POTASSIUM SERUM 4.1 MEQ/L (3.5-5.1); SODIUM LEVEL 142 MEQ/L (136-145)
[2018-07-10] MEDS: FUROSEMIDE 20 MG/2 ML VIAL (J1940) IV SCH ×2 (09:37→17:46)
[2018-07-10] MEDS: levETIRAcetam 250MG TABLET (KEPPRA) PO SCH ×2 (09:37→20:42)
[2018-07-10] MEDS: SUCRALFATE 1 GM TAB PO SCH ×2 (09:37→20:42)
[2018-07-10] MEDS: SENOKOT S TAB PO SCH ×2 (09:37→20:43)
[2018-07-10] MEDS: ENOXAPARIN 40 MG/0.4 ML SYRINGE (J1650) SC SCH (09:41)
[2018-07-10 14:00] VITALS: BP 126/70
--- NOTE | 2018-07-10 15:31 | IPNPDOC ---
Date Seen The patient was seen on 07/10/18. Progress Note SUBJECTIVE: Patient reports to me that he is feeling well today, he is getting back to normal, and has no complaints today other than his nagging cough and some runnny nose. OBJECTIVE PHYSICAL EXAMINATION: VITAL SIGNS: Please see below. GENERAL: Disheveled elderly obese man sitting in a chair in no acute distress HEENT: cranial nerves II through XII are grossly intact CARDIOVASCULAR: S1-S2 regular. RESPIRATORY: Good air movement throughout all lung caal and no rails. ABDOMINAL: Obese bowel sounds present abdomen soft EXTREMITIES: trace edema bilaterally LABORATORY DATA, IMAGING STUDIES, MICROBIOLOGY: Please see below. Echocardiogram: Normal left ventricular size and wall thickness with hyperkinetic wall motion. Left atrial size upper limits of normal with Doppler evidence of a degree of left ventricular (LV) diastolic dysfunction but currently normal estimated mean left atrial pressure. Normal right heart chamber sizes and motion with Doppler evidence of mild pulmonary hypertension. Normal inferior vena cava (IVC) size and collapse against an elevated central venous pressure. Aortic valvular sclerosis without stenosis and only trace insufficiency. Normal appearing mitral valvular apparatus and leaflet excursion with no posterior systolic buckling. No mitral insufficiency. Normal appearing tricuspid valve with mild insufficiency. No apparent intracardiac mass or pericardial effusion. DVT prophylaxis ordered?: Lovenox ASSESSMENT AND PLAN: This is a 57-year-old man with shortness of breath. PROBLEMS: 1. Shortness of breath: Patient complaining of cold-like symptoms with nasal congestion sore throat for the last several days however he is progressively becoming more short of breath without improvement with orthopnea when presented to the emergency room. Likely some decompensated congestive heart failure secondary to rhinovirus. I suspect his decompensation is secondary to his rhinovirus infection. He is adequately diuresing quite well I suspect he is approaching euvolemia and can be transitioned to PO diuretic as early as tomorrow. 2. Hypertension: Controlled with lisinopril actively undergoing IV diuresis and monitor his renal function and blood pressure closely. 3. Seizure disorder: Continue with Keppra. 4. Dyslipidemia: Continue with statin DISPOSITION: possibly home tomorrow VS, I&O, 24H, Fishbone Vital Signs/I&O Vital Signs Date Time Temp Pulse Resp B/P (MAP) Pulse Ox O2 Delivery O2 Flow Rate FiO2 07/10/18 14:00 98.6 72 19 126/70 (88) 96 07/08/18 22:14 Room Air I&O- Last 24 Hours up to 6 AM 07/10/18 06:00 Intake Total 840 ml Output Total 1025 ml Balance -185 ml Laboratory Data 24H LABS Laboratory Tests 2 07/10/18 05:36: Immature Granulocyte % (Auto) 0.5, White Blood Count 14.0H, Red Blood Count 4.69, Hemoglobin 13.6, Hematocrit 41.5L, Mean Corpuscular Volume 88.5, Mean Corpuscular Hemoglobin 29.0, Mean Corpuscular Hemoglobin Concent 32.8, Red Cell Distribution Width 16.7H, Platelet Count 494H, Neutrophils (%) (Auto) 62.0, Lymphocytes (%) (Auto) 17.2L, Monocytes (%) (Auto) 17.8H, Eosinophils (%) (Auto) 1.9, Basophils (%) (Auto) 0.6, Neutrophils # (Auto) 8.6H, Lymphocytes # (Auto) 2.4, Monocytes # (Auto) 2.5H, Eosinophils # (Auto) 0.3, Basophils # (Auto) 0.1, Nucleated Red Blood Cells % (auto) 0.0, Anion Gap 9, Glomerular Filtration Rate > 60.0, Blood Urea Nitrogen 21#H, Creatinine 0.71, Sodium Level 142, Potassium Level 4.1#, Chloride Level 109H, Carbon Dioxide Level 24, Calcium Level 8.4L CBC/BMP Laboratory Tests 07/10/18 05:36 Red Blood Count 4.69, Mean Corpuscular Volume 88.5, Mean Corpuscular Hemoglobin 29.0, Mean Corpuscular Hemoglobin Concent 32.8, Red Cell Distribution Width 16.7 H, Neutrophils (%) (Auto) 62.0, Lymphocytes (%) (Auto) 17.2 L, Monocytes (%) (Auto) 17.8 H, Eosinophils (%) (Auto) 1.9, Basophils (%) (Auto) 0.6, Neutrophils # (Auto) 8.6 H, Lymphocytes # (Auto) 2.4, Monocytes # (Auto) 2.5 H, Eosinophils # (Auto) 0.3, Basophils # (Auto) 0.1, Calcium Level 8.4 L Microbiology Microbiology 07/08/18 Blood Culture - Preliminary, Resulted No growth after 24 hours . All specim... 07/08/18 Blood Culture - Preliminary, Resulted No growth after 24 hours . All specim... 07/09/18 Respiratory Virus Panel (PCR) ([facility]) - Final, Complete Human Rhinovirus/Enterovirus 07/08/18 Gram Stain - Final, Complete 07/08/18 Sputum Culture - Final, Complete SHIKHA HORN MD Jul 10, 2018 15:31
[2018-07-10] MEDS: ATORVASTATIN 20 MG TAB PO SCH (20:42)
[2018-07-10 20:43] VITALS: BP 132/84
[2018-07-10] MEDS: CETIRIZINE (ZyrTEC) 10 MG TAB PO SCH (20:43)
[2018-07-10] MEDS: LISINOPRIL 10 MG TAB PO SCH (20:43)
[2018-07-10 22:00] VITALS: BP 138/84
[2018-07-11 06:00] VITALS: BP 133/76
[2018-07-11 06:31] LABS: BASO # 0.1 10^3/uL (0.0-0.2); BASO % 0.4 % (0.0-1.0); EOS # 0.3 10^3/uL (0.0-0.50); EOS % 2.2 % (0.0-3.0); HEMATOCRIT 42.4 % (42.0-52.0); HEMOGLOBIN 13.6 g/dl (13.5-17.5); LYMPH # 2.9 10^3/uL (1.5-4.5); LYMPH % 21.2 % (24.0-44.0); MEAN CORPUSCULAR HEMOGLOBIN 27.7 pg (27.0-33.0); MEAN CORPUSCULAR HGB CONC 32.1 g/dl (32.0-36.5); MEAN CORPUSCULAR VOLUME 86.4 fl (80.0-96.0); MONO % 14.6 % (0.0-5.0); NEUTROPHILS # 8.2 10^3/uL (1.8-7.7); NEUTROPHILS % 61.2 % (36.0-66.0); PLATELET COUNT, AUTOMATED 506 10^3/uL (150-450); RED BLOOD COUNT 4.91 10^6/uL (4.30-6.10); WHITE BLOOD COUNT 13.5 10^3/uL (4.0-10.0)
[2018-07-11 07:01] LABS: BLOOD UREA NITROGEN 22 MG/DL (7-18); CALCIUM LEVEL 8.5 MG/DL (8.5-10.1); CARBON DIOXIDE LEVEL 25 MEQ/L (21-32); CHLORIDE LEVEL 107 MEQ/L (98-107); CREATININE FOR GFR 0.71 MG/DL (0.70-1.30); GLOMERULAR FILTRATION RATE > 60.0 (>56); GLUCOSE, FASTING 94 MG/DL (70-100); POTASSIUM SERUM 4.2 MEQ/L (3.5-5.1); SODIUM LEVEL 141 MEQ/L (136-145)
[2018-07-11] MEDS: ACETAMINOPHEN TAB 650MG DOSE (2X325MG) PO PRN (07:23)
[2018-07-11] MEDS: FUROSEMIDE 20 MG/2 ML VIAL (J1940) IV SCH (09:08)
[2018-07-11] MEDS: ENOXAPARIN 40 MG/0.4 ML SYRINGE (J1650) SC SCH (09:08)
[2018-07-11] MEDS: SENOKOT S TAB PO SCH (09:08)
[2018-07-11] MEDS: levETIRAcetam 250MG TABLET (KEPPRA) PO SCH (09:09)
[2018-07-11] MEDS: SUCRALFATE 1 GM TAB PO SCH (09:09)
[2018-07-11] MEDS ORDERED: FURO20TA2 PO (11:08)
--- NOTE | 2018-07-13 09:59 | DSES ---
DATE OF ADMISSION: 07/08/2018 DATE OF DISCHARGE: 07/11/2018 DISCHARGE DIAGNOSIS: Congestive heart failure. SECONDARY DIAGNOSES: Human rhinovirus. Hypertension. Seizure disorder. Dyslipidemia. HOSPITAL COURSE: The patient is a 57-year-old man with a history of overwhelming pneumococcal sepsis with prolonged hospitalization here within the last year. He was in his usual state of health and doing quite well and began to have cold-like symptoms with cough, runny nose, sore throat without knowing any sick contacts. He was admitted and found to have some fluid overload. He was diuresed and had good improvement in his symptoms. An echocardiogram was checked during this stay, which revealed normal left ventricular size and wall thickness with hyperkinetic wall motion. Evidence of diastolic dysfunction. Normal appearing vena cava and collapse. Patient did receive some diuresis and improved. His respiratory PCR panel did return positive for human rhinovirus. The patient worked with physical therapy and was cleared by them. SUBJECTIVE: This morning, the patient tells me that he is feeling well. He has no complaints. His runny nose and cough are resolving. He would like to go home. OBJECTIVE: VITAL SIGNS: Temperature 97.0, pulse 87, respiratory rate 20, blood pressure 138/84, oxygen saturation 96% on room air. GENERAL: He is a pleasant elderly man sitting in a chair, disheveled and obese, in no acute distress. He has a flat affect, which is his baseline. HEENT: Cranial nerves II-XII are grossly intact. He has moist mucous membranes. No elevation in central venous pressure (CVP). CARDIOVASCULAR: S1, S2, regular. RESPIRATORY EXAM: Clear. ABDOMINAL EXAM: Obese. Bowel sounds are present. Abdomen is soft. EXTREMITIES: No clubbing, cyanosis, or edema today. LABORATORY STUDIES: WBC 13.5, hemoglobin 13.6, platelet count is 506. Chemistry panel: Sodium 141, potassium 4.2, chloride 107, bicarbonate 25, BUN 22, creatinine 0.7. Microbiology: Respiratory PCR was positive for human rhinovirus. Blood cultures were negative. Sputum cultures were negative. IMAGING: The patient did have a CT angiography of his chest that revealed no pulmonary embolism (PE) but dilated pulmonary trunk and mild diffuse fibroatelectatic change versus interstitial edema. ASSESSMENT AND PLAN: This is a 57-year-old man who presented with shortness of breath. PROBLEMS: 1. Shortness of breath secondary to congestive heart failure. I do not see a previously documented diagnosis of this. However, his echocardiogram during this visit did demonstrate some evidence of diastolic dysfunction and he did improve and his edema resolved with diuresis. I advised him about a 2-gram sodium diet, checking daily weights, also followup with his primary care provider (PCP), and starting him on a new diuretic. He should likely have outpatient blood work checked to ensure that his renal function and potassium remain well while on this new low-dose diuretic. I suspect that he had some decompensated diastolic congestive heart failure secondary to his human rhinovirus, which is likely a result of his condition, which should resolve in the coming days. 2. Hypertension. He is continued on lisinopril. His blood pressure was controlled while he was here. He is also being discharged on new Lasix 20 mg daily. Should he require further blood pressure control, will recommend increasing his lisinopril. 3. Seizure disorder. He is continued on Keppra. 4. Dyslipidemia. He is continued on his statin. 5. Seasonal allergies. He is continued on cetirizine and Flonase. 6. Chronic constipation. He is continued on docusate and senna combination tablet. DISPOSITION: The patient is being discharged home. He has been cleared by physical therapy. His clinical symptoms have all resolved. He is to followup with his PCP within 7 days. His activity is as prior to admission. His diet is 2 grams sodium. He is to return to the emergency room (ER) if symptoms worsen and could consider an outpatient cardiology referral. MEDICATIONS AT THE TIME OF DISCHARGE: - furosemide 20 mg daily - Ventolin HFA two puffs every 4-6 hours as needed for wheezing - atorvastatin 20 mg nightly - cetirizine 10 mg nightly - fluticasone two sprays to the nares daily - Keppra 500 mg twice a day - lisinopril 10 mg nightly - senna and docusate one tablet twice a day - sucralfate 1 gram by mouth twice a day 45 minutes spent organizing disposition.
== END 2018-07-11 12:48 | disposition home or self-care (01) | DRG 194 ==
LOC: M ED 14:50 → M ED INP 20:30 → M MSPAV 22:25
PROVIDERS: ADMIT Internal Medicine Nephrology; ATTEND Internal Medicine
DX: I11.0 Hypertensive heart disease with heart failure (principal); B97.89 Other viral agents as the cause of diseases classified elsewhere; E78.5 Hyperlipidemia, unspecified; G40.909 Epilepsy, unspecified, not intractable, without status epilepticus; I50.33 Acute on chronic diastolic (congestive) heart failure; K59.09 Other constipation; J00 Acute nasopharyngitis [common cold]; Z79.899 Other long term (current) drug therapy; Z88.1 Allergy status to other antibiotic agents; Z88.8 Allergy status to other drugs, medicaments and biological substances; Z86.718 Personal history of other venous thrombosis and embolism; Z87.891 Personal history of nicotine dependence; Z90.49 Acquired absence of other specified parts of digestive tract

== ENCOUNTER → 2018-09-08 | Outpatient (CLI) | payer OTHER ==
[~2018-09-08] MED LIST changes: +CETI10TA4 PO; +FLUTISP NARES; +FURO20TA2 PO; +KEPP1TAB PO; +SENN1TAB36 PO; +SUCR1TAB56 PO; +VENTAER INH
--- NOTE | 2018-09-08 09:55 | REP ---
Chest two views HISTORY: Cough Comparison: 07/08/2018 The lungs are clear. The cardiac silhouette is enlarged. The thoracic aorta is tortuous. The pulmonary vasculature is normal in appearance. Degenerative change is present in the thoracic spine. IMPRESSION: Cardiomegaly. Electronically Signed by Darshan Cook MD 09/08/2018 09:47 A
== END ==
LOC: M WUC 09:31
PROVIDERS: ATTEND Obstetrics & Gynecology
DX: I51.7 Cardiomegaly (principal)

== ENCOUNTER → 2018-10-06 | Outpatient (CLI) | payer OTHER ==
[2018-10-06 12:35] LABS: BASO # 0.1 10^3/uL (0.0-0.2); BASO % 0.5 % (0.0-1.0); EOS # 0.2 10^3/uL (0.0-0.50); EOS % 1.2 % (0.0-3.0); HEMATOCRIT 42.6 % (42.0-52.0); HEMOGLOBIN 13.6 g/dl (13.5-17.5); LYMPH # 2.6 10^3/uL (1.5-4.5); LYMPH % 17.9 % (24.0-44.0); MEAN CORPUSCULAR HEMOGLOBIN 29.6 pg (27.0-33.0); MEAN CORPUSCULAR HGB CONC 31.9 g/dl (32.0-36.5); MEAN CORPUSCULAR VOLUME 92.6 fl (80.0-96.0); MONO # 1.8 10^3/uL (0.0-0.8); MONO % 12.4 % (0.0-5.0); NEUTROPHILS # 9.8 10^3/uL (1.8-7.7); NEUTROPHILS % 67.7 % (36.0-66.0); PLATELET COUNT, AUTOMATED 590 10^3/uL (150-450); WHITE BLOOD COUNT 14.5 10^3/uL (4.0-10.0)
--- NOTE | 2018-10-06 22:04 | REP ---
Clinical: cough . Comparison: 09/08/2018 . Technique: PA and lateral. Findings: The mediastinum and cardiac silhouette are normal. The lung caal are clear and without acute consolidation, effusion, or pneumothorax. The skeletal structures are intact and normal. Impression: 1. No acute cardiopulmonary process. If the patient remains symptomatic consider chest CT for further investigation. Electronically Signed by Ilia Marcial MD 10/06/2018 09:56 P
== END ==
LOC: M WUC 09:01
PROVIDERS: ATTEND Family Medicine
DX: R05 Cough (principal)

== ENCOUNTER → 2018-11-10 | Outpatient (CLI) | payer OTHER ==
--- NOTE | 2018-11-10 17:38 | REP ---
CT chest without contrast: History: Cough. Comparison chest CT study July 08, 2018. CT findings: Preliminary digital manual plate filler radiograph shows clips in right upper quadrant. There is no evidence of pleural or pericardial effusion. There is some vascular calcification again noted. No hilar or mediastinal mass or adenopathy is observed. The main pulmonary artery is again seen to be dilated which may reflect pulmonary arterial hypertension. It measures 4.6 cm in transverse dimension. The ascending aorta by comparison measures 3.7 cm. The left and right main pulmonary arteries are mildly dilated as well as before. There are scattered normal-appearing hilar lymph nodes. No definite adenopathy. No adrenal lesion is seen. 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 There is some linear fibrosis in the right middle lobe mild in degree. Mild linear fibrosis is seen in the left lower lobe superiorly. No pulmonary mass or infiltrate is appreciated. No endobronchial disease is appreciated. Impression: Dilated main pulmonary artery. Again there is before question pulmonary arterial hypertension. Fibro atelectatic changes again noted. No infiltrate or nodule or mass lesion seen. Post splenectomy. Vascular calcification. Electronically Signed by Darnell Yu MD 11/10/2018 09:10 P
== END ==
LOC: M RAD 06:39
PROVIDERS: ATTEND Family Medicine
DX: I28.8 Other diseases of pulmonary vessels (principal); R05 Cough

== ENCOUNTER → 2018-11-25 | Outpatient (CLI) | payer OTHER ==
[~2018-11-25] MED LIST changes: +ALL10TAB29; +CLIN300C5; +COLA100C5 PO; +FURO20TA2; +LOSA25TA14; +OMEP-221; +REGL5TAB2 PO; +TESS100C PO; +TRAM1CAP15 PO
[2018-11-25 13:17] LABS: HEMATOCRIT 41.5 % (42.0-52.0); HEMOGLOBIN 12.9 g/dl (13.5-17.5); MEAN CORPUSCULAR HEMOGLOBIN 28.5 pg (27.0-33.0); MEAN CORPUSCULAR HGB CONC 31.1 g/dl (32.0-36.5); MEAN CORPUSCULAR VOLUME 91.6 fl (80.0-96.0); PLATELET COUNT, AUTOMATED 657 10^3/uL (150-450); RED BLOOD COUNT 4.53 10^6/uL (4.30-6.10); WHITE BLOOD COUNT 18.8 10^3/uL (4.0-10.0)
[2018-11-25 14:18] LABS: ALBUMIN 2.8 GM/DL (3.2-5.2); ALT/SGPT 31 U/L (12-78); BILIRUBIN,TOTAL 0.4 MG/DL (0.2-1.0); BLOOD UREA NITROGEN 13 MG/DL (7-18); CALCIUM LEVEL 8.7 MG/DL (8.5-10.1); CARBON DIOXIDE LEVEL 25 MEQ/L (21-32); CHLORIDE LEVEL 109 MEQ/L (98-107); GLOMERULAR FILTRATION RATE > 60.0 (>56); GLUCOSE, FASTING 127 MG/DL (70-100); POTASSIUM SERUM 3.8 MEQ/L (3.5-5.1); SODIUM LEVEL 143 MEQ/L (136-145); TOTAL PROTEIN 6.5 GM/DL (6.4-8.2)
[2018-11-25 17:45] LABS: BASO # 0.1 10^3/uL (0.0-0.2); BASO % 0.3 % (0.0-1.0); EOS # 0.2 10^3/uL (0.0-0.50); EOS % 0.8 % (0.0-3.0); LYMPH # 2.8 10^3/uL (1.5-4.5); LYMPH % 14.8 % (24.0-44.0); MONO % 11.2 % (0.0-5.0); NEUTROPHILS # 13.5 10^3/uL (1.8-7.7); NEUTROPHILS % 72.4 % (36.0-66.0)
[2018-11-25 19:05] LABS: MONO # 2.1 10^3/uL (0.0-0.8)
[2018-11-25 19:07] LABS: PLATELET ESTIMATE INCREASED (NORMAL)
== END ==
LOC: M WUC 08:30
PROVIDERS: ATTEND Obstetrics & Gynecology
DX: I27.20 Pulmonary hypertension, unspecified (principal); R63.5 Abnormal weight gain; Q89.01 Asplenia (congenital)

== ENCOUNTER → 2018-12-28 | Outpatient (CLI) | payer OTHER ==
[~2018-12-28] MED LIST changes: -ALL10TAB29; -CLIN300C5; -COLA100C5 PO; -FURO20TA2; -LOSA25TA14; -OMEP-221; -REGL5TAB2 PO; -TESS100C PO; -TRAM1CAP15 PO
--- NOTE | 2018-12-28 10:01 | PFTRPT ---
Height: 61.00 Inches Weight: 164.00 Lbs BSA: 1.74 Diagnosis: R05 DATE OF PROCEDURE: 12/28/2018 ORDERED BY: Dr. Jamal Kaur Spirometry: Pre and post bronchodilator study of excellent technical quality. Forced vital capacity reduced. FEV1 in proportion. Obstructive index is, therefore, normal. Flow Volume Loop: Expiratory limb of the flow volume loop does suggest some degree of flow rate limitation. No significant bronchodilator response is identified. Lung Volumes: Total lung capacity is reduced. Residual volume is in proportion. Diffusing Capacity: Diffusing capacity significantly reduced but does correct for alveolar volume. Hemoglobin: Hemoglobin acceptable at 13. Airway Mechanics: Airway resistance mildly elevated with a concomitant decrease in airway conductance. IMPRESSION: Restrictive ventilatory impairment without bronchodilator response. Please correlate clinically. MTDD
== END ==
LOC: M CARPUL 09:06
PROVIDERS: ATTEND Obstetrics & Gynecology
DX: R05 Cough (principal); I27.20 Pulmonary hypertension, unspecified

== ENCOUNTER → 2019-01-03 | Outpatient (CLI) | payer OTHER | LOC: M WUC 08:25 | PROVIDERS: ATTEND Obstetrics & Gynecology | DX: R88.8 Abnormal findings in other body fluids and substances (principal) ==

== ENCOUNTER → 2019-01-14 | Outpatient (CLI) | payer OTHER ==
--- NOTE | 2019-01-19 09:54 | SLEEPHOME ---
DATE OF STUDY: 01/14/2019 ORDERING PROVIDER: Jamal Kaur MD Diagnostic home sleep testing was performed due to concern for the obstructive sleep apnea syndrome in this patient with nonrestorative sleep. For testing, a nocturnal T3 respiratory monitoring device was used. Continuous record was made of pulse, oxygen saturation, airflow, chest and abdominal strain, and body position. 9 hours and 59 minutes of data were reviewed. There were 8 hours and 49 minutes marked as time in bed. During the interval marked time in bed, there were 104 respiratory events identified of 10 seconds in duration or greater for a respiratory event index of 11.8. The events were primarily obstructive. Baseline pulse rate 65. Pulse rate ranged 51-118. Baseline saturation was just 90%. Saturations fell as low as 76%, and testing was performed in both the supine and nonsupine positions. IMPRESSION: Abnormal home sleep testing with repetitive respiratory events and oxygen desaturations to 76% with a respiratory event index of 11.8 is consistent with the obstructive sleep apnea syndrome. RECOMMENDATION: The patient should be encouraged to undergo formal sleep evaluation.
== END ==
LOC: M SLEEP HO 01-10 10:51
PROVIDERS: ATTEND Internal Medicine Pulmonary Disease
DX: R40.0 Somnolence (principal)

== ENCOUNTER 2019-03-12 10:18 | Emergency (ER) | payer OTHER ==
[~2019-03-12] VITALS: Ht 154.9 cm; Wt 82.6 kg
[2019-03-12] MEDS ORDERED: OMEP-221 (10:23)
[2019-03-12] MEDS ORDERED: ALL10TAB29 (10:23)
[2019-03-12] MEDS ORDERED: TRAM1CAP15 PO (11:55)
[2019-03-12] MEDS ORDERED: TESS100C PO (11:55)
[2019-03-12] MEDS ORDERED: COLA100C5 PO (11:55)
[2019-03-12] MEDS ORDERED: REGL5TAB2 PO ×2 (11:55)
[2019-03-12 12:19] VITALS: BP 136/80
[2019-03-12] MEDS ORDERED: CLEO300C2 PO (12:34)
[2019-03-12] MEDS ORDERED: KETOROLAC TROMETHAMINE 10 MG TAB PO ONE (12:45)
[2019-03-12] MEDS ORDERED: ACETAMINOPHEN 325 MG TAB PO ONE (12:45)
== END 2019-03-12 12:51 | disposition home or self-care (01) ==
LOC: M ED 10:18
DX: K02.9 Dental caries, unspecified (principal); K08.439 Partial loss of teeth due to caries, unspecified class; Z79.899 Other long term (current) drug therapy; Z88.0 Allergy status to penicillin; Z88.8 Allergy status to other drugs, medicaments and biological substances; F17.210 Nicotine dependence, cigarettes, uncomplicated

== ENCOUNTER 2019-03-18 08:06 | Emergency (ER) | payer OTHER ==
[~2019-03-18] VITALS: Ht 154.9 cm; Wt 165.0 kg
[~2019-03-18 08:06] MED LIST changes: +ALL10TAB29; +COLA100C5 PO; +OMEP-221; +REGL5TAB2 PO; +TESS100C PO; +TRAM1CAP15 PO
[2019-03-18] MEDS ORDERED: LOSA25TA14 (08:16)
[2019-03-18] MEDS ORDERED: CLIN300C5 (08:16)
[2019-03-18] MEDS ORDERED: FURO20TA2 (08:16)
[2019-03-18 09:41] LABS: ALT/SGPT 18 U/L (12-78); BILIRUBIN,TOTAL 0.8 MG/DL (0.2-1.0); BLOOD UREA NITROGEN 15 MG/DL (7-18); CALCIUM LEVEL 8.3 MG/DL (8.5-10.1); CARBON DIOXIDE LEVEL 25 MEQ/L (21-32); CHLORIDE LEVEL 107 MEQ/L (98-107); CREATININE FOR GFR 0.77 MG/DL (0.70-1.30); GLOMERULAR FILTRATION RATE > 60.0 (>56); GLUCOSE, FASTING 107 MG/DL (70-100); POTASSIUM SERUM 4.1 MEQ/L (3.5-5.1); SODIUM LEVEL 141 MEQ/L (136-145); TOTAL PROTEIN 7.1 GM/DL (6.4-8.2)
[2019-03-18 10:00] VITALS: BP 150/91
== END 2019-03-18 10:01 | disposition home or self-care (01) ==
LOC: M ED 08:06
DX: R22.0 Localized swelling, mass and lump, head (principal); R77.0 Abnormality of albumin; I11.0 Hypertensive heart disease with heart failure; I50.9 Heart failure, unspecified; J44.9 Chronic obstructive pulmonary disease, unspecified; G47.33 Obstructive sleep apnea (adult) (pediatric); Z79.899 Other long term (current) drug therapy; Z88.0 Allergy status to penicillin; Z88.8 Allergy status to other drugs, medicaments and biological substances

== ENCOUNTER → 2019-04-06 | Outpatient (REF) | payer OTHER ==
[~2019-04-06] MED LIST changes: +CLIN300C5; +FURO20TA2; +LOSA25TA14
== END ==
LOC: M SFHCPLAZ 10:41
PROVIDERS: ATTEND Family Medicine
DX: I10 Essential (primary) hypertension (principal)

== ENCOUNTER → 2019-04-11 | Outpatient (CLI) | payer OTHER ==
[2019-04-11 10:35] LABS: BLOOD UREA NITROGEN 13 MG/DL (7-18); CALCIUM LEVEL 8.6 MG/DL (8.5-10.1); CARBON DIOXIDE LEVEL 25 MEQ/L (21-32); CHLORIDE LEVEL 107 MEQ/L (98-107); CREATININE FOR GFR 0.61 MG/DL (0.70-1.30); GLOMERULAR FILTRATION RATE > 60.0 (>56); GLUCOSE, FASTING 100 MG/DL (70-100); POTASSIUM SERUM 4.2 MEQ/L (3.5-5.1); SODIUM LEVEL 140 MEQ/L (136-145)
== END ==
LOC: M WUC 08:48
PROVIDERS: ATTEND Obstetrics & Gynecology
DX: I10 Essential (primary) hypertension (principal)

== ENCOUNTER → 2019-08-12 | Outpatient (REF) | payer MEDICARE, OTHER ==
[2019-08-12 13:54] LABS: BLOOD UREA NITROGEN 14 MG/DL (7-18); CALCIUM LEVEL 8.5 MG/DL (8.5-10.1); CARBON DIOXIDE LEVEL 28 MEQ/L (21-32); CHLORIDE LEVEL 107 MEQ/L (98-107); CHOLESTEROL LEVEL 113 MG/DL (<200); CHOLESTEROL RISK RATIO 4.035 (<5); CREATININE FOR GFR 0.76 MG/DL (0.70-1.30); GLOMERULAR FILTRATION RATE > 60.0 (>56); GLUCOSE, FASTING 113 MG/DL (70-100); HDL CHOLESTEROL 28 MG/DL (>40); LDL CHOLESTEROL 53 MG/DL (<100); NON-HDL-C 85 MG/DL; POTASSIUM SERUM 4.5 MEQ/L (3.5-5.1); SODIUM LEVEL 141 MEQ/L (136-145); TRIGLYCERIDES LEVEL 161 MG/DL (<150)
[2019-08-12 14:44] LABS: HEMOGLOBIN A1c 6.3 %
== END ==
LOC: M SFHCPLAZ 11:44
PROVIDERS: ATTEND Family Medicine
DX: I10 Essential (primary) hypertension (principal); E78.5 Hyperlipidemia, unspecified; Z12.5 Encounter for screening for malignant neoplasm of prostate; Z13.1 Encounter for screening for diabetes mellitus; Z79.899 Other long term (current) drug therapy

== ENCOUNTER → 2020-02-01 | Outpatient (CLI) | payer OTHER, MEDICARE ==
[~2020-02-01] MED LIST changes: -ALL10TAB29; +CETI-24; +PANT40TA29 PO; -PANT40TA3 PO
[2020-02-01 14:21] LABS: ALBUMIN 3.2 GM/DL (3.2-5.2); ALT/SGPT 21 U/L (12-78); BILIRUBIN,TOTAL 0.3 MG/DL (0.2-1.0); BLOOD UREA NITROGEN 17 MG/DL (7-18); CALCIUM LEVEL 8.8 MG/DL (8.8-10.2); CARBON DIOXIDE LEVEL 26 MEQ/L (21-32); CHLORIDE LEVEL 106 MEQ/L (98-107); CREATININE FOR GFR 0.68 MG/DL (0.70-1.30); GLOMERULAR FILTRATION RATE > 60.0 (>49); GLUCOSE, FASTING 97 MG/DL (70-100); POTASSIUM SERUM 4.1 MEQ/L (3.5-5.1); SODIUM LEVEL 139 MEQ/L (136-145); TOTAL PROTEIN 7.4 GM/DL (6.4-8.2)
== END ==
LOC: M PLALAB 09:35
PROVIDERS: ATTEND Student in an Organized Health Care Education/Training Program
DX: Z79.899 Other long term (current) drug therapy (principal)

== ENCOUNTER → 2021-03-13 | Outpatient (REF) | payer MEDICARE ==
[~2021-03-13] MED LIST changes: +CLIN-250; -CLIN300C5; +LISI10TA22; +LISI10TA22 PO; -LISI10TA4; -LISI10TA4 PO
== END ==
LOC: M SFHCPLAZ 10:44
PROVIDERS: ATTEND Family Medicine
DX: E78.5 Hyperlipidemia, unspecified (principal)

== ENCOUNTER → 2021-04-26 | Outpatient (CLI) | payer MEDICARE ==
[~2021-04-26] MED LIST changes: +LOSA25TA13; -LOSA25TA14; -OMEP-221; +OMEP40CA5
[2021-04-26 13:57] LABS: ALBUMIN 3.1 GM/DL (3.2-5.2); ALT/SGPT 26 U/L (12-78); BILIRUBIN,TOTAL 0.3 MG/DL (0.2-1.0); BLOOD UREA NITROGEN 15 MG/DL (7-18); CALCIUM LEVEL 8.4 MG/DL (8.8-10.2); CARBON DIOXIDE LEVEL 27 MEQ/L (21-32); CHLORIDE LEVEL 108 MEQ/L (98-107); CREATININE FOR GFR 0.67 MG/DL (0.70-1.30); GLOMERULAR FILTRATION RATE > 60.0 (>49); GLUCOSE, FASTING 107 MG/DL (70-100); POTASSIUM SERUM 3.5 MEQ/L (3.5-5.1); SODIUM LEVEL 142 MEQ/L (136-145); TOTAL PROTEIN 6.9 GM/DL (6.4-8.2)
== END ==
LOC: M PLALAB 09:56
PROVIDERS: ATTEND Student in an Organized Health Care Education/Training Program
DX: E78.5 Hyperlipidemia, unspecified (principal)

== ENCOUNTER → 2021-08-29 | Outpatient (REF) | payer MEDICARE | LOC: M SFHCPLAZ 13:56 | PROVIDERS: ATTEND Family Medicine | DX: N32.0 Bladder-neck obstruction (principal); I10 Essential (primary) hypertension ==

== ENCOUNTER → 2021-09-04 | Outpatient (CLI) | payer MEDICARE ==
[2021-09-04 13:44] LABS: CREATININE, URINE 60.3 MG/DL; MALB URINE SIEMENS 16.7 MG/L; MAU/CREAT RATIO 27.6 MCG/MG (0.0-30.0)
== END ==
LOC: M WUC 08:11
PROVIDERS: ATTEND Student in an Organized Health Care Education/Training Program
DX: N32.0 Bladder-neck obstruction (principal); I10 Essential (primary) hypertension
CPT/HCPCS: 36415; 82043; G0103

== ENCOUNTER → 2022-01-01 | Outpatient (CLI) | payer MEDICARE ==
[2022-01-01 10:31] LABS: BASO # 0.1 10^3/uL (0.0-0.2); BASO % 0.7 % (0.0-1.0); EOS # 0.1 10^3/uL (0.0-0.5); EOS % 0.8 % (0.0-3.0); HEMOGLOBIN 14.1 g/dl (13.5-17.5); LYMPH # 2.3 10^3/uL (1.5-5.0); LYMPH % 17.5 % (24.0-44.0); MEAN CORPUSCULAR HEMOGLOBIN 31.8 pg (27.0-33.0); MEAN CORPUSCULAR HGB CONC 31.3 g/dl (32.0-36.5); MEAN CORPUSCULAR VOLUME 101.6 fl (80.0-96.0); MONO % 12.6 % (2.0-8.0); NEUTROPHILS # 9.1 10^3/uL (1.5-8.5); NEUTROPHILS % 68.2 % (36.0-66.0); PLATELET COUNT, AUTOMATED 560 10^3/uL (150-450); RED BLOOD COUNT 4.43 10^6/uL (4.30-6.10); WHITE BLOOD COUNT 13.3 10^3/uL (4.0-10.0)
[2022-01-01 10:45] LABS: MONO # 1.7 10^3/uL (0.0-0.8)
[2022-01-01 11:11] LABS: HEMOGLOBIN A1c 6.1 %
[2022-01-01 12:23] LABS: BLOOD UREA NITROGEN 13 MG/DL (7-18); CALCIUM LEVEL 8.7 MG/DL (8.8-10.2); CARBON DIOXIDE LEVEL 29 MEQ/L (21-32); CHLORIDE LEVEL 106 MEQ/L (98-107); CHOLESTEROL LEVEL 92 MG/DL (<200); CHOLESTEROL RISK RATIO 3.066 (<5); CREATININE FOR GFR 0.66 MG/DL (0.70-1.30); GLOMERULAR FILTRATION RATE > 60.0 (>49); GLUCOSE, FASTING 103 MG/DL (70-100); HDL CHOLESTEROL 30 MG/DL (>40); LDL CHOLESTEROL 38 MG/DL (<100); NON-HDL-C 62 MG/DL; POTASSIUM SERUM 4.1 MEQ/L (3.5-5.1); SODIUM LEVEL 138 MEQ/L (136-145); TRIGLYCERIDES LEVEL 118 MG/DL (<150)
[2022-01-01 12:57] LABS: ALBUMIN 3.2 GM/DL (3.2-5.2); ALT/SGPT 28 U/L (12-78); BILIRUBIN,TOTAL 0.6 MG/DL (0.2-1.0); TOTAL PROTEIN 7.1 GM/DL (6.4-8.2)
== END ==
LOC: M PLALAB 08:49
PROVIDERS: ATTEND Student in an Organized Health Care Education/Training Program
DX: R73.03 Prediabetes (principal)

== ENCOUNTER → 2022-02-03 | Outpatient (CLI) | payer MEDICARE | LOC: M RAD 09:07 | PROVIDERS: ATTEND Student in an Organized Health Care Education/Training Program | DX: Z87.891 Personal history of nicotine dependence (principal) ==

== ENCOUNTER → 2022-08-11 | Outpatient (CLI) | payer MEDICARE ==
[~2022-08-11] MED LIST changes: +FLUT50SP17; +FLUT50SP17 NARES; -FLUTISP; -FLUTISP NARES; +SENN-121; -STOO1TAB2
[2022-08-11 10:26] LABS: BASO # 0.1 10^3/uL (0.0-0.2); BASO % 0.6 % (0.0-1.0); EOS # 0.1 10^3/uL (0.0-0.5); EOS % 0.6 % (0.0-3.0); HEMATOCRIT 45.7 % (42.0-52.0); HEMOGLOBIN 14.4 g/dl (13.5-17.5); LYMPH # 2.1 10^3/uL (1.5-5.0); LYMPH % 13.7 % (24.0-44.0); MEAN CORPUSCULAR HEMOGLOBIN 31.4 pg (27.0-33.0); MEAN CORPUSCULAR HGB CONC 31.5 g/dl (32.0-36.5); MEAN CORPUSCULAR VOLUME 99.6 fl (80.0-96.0); MONO % 11.1 % (2.0-8.0); NEUTROPHILS # 11.4 10^3/uL (1.5-8.5); NEUTROPHILS % 73.5 % (36.0-66.0); PLATELET COUNT, AUTOMATED 509 10^3/uL (150-450); RED BLOOD COUNT 4.59 10^6/uL (4.30-6.10); WHITE BLOOD COUNT 15.5 10^3/uL (4.0-10.0)
[2022-08-11 10:30] LABS: MONO # 1.7 10^3/uL (0.0-0.8)
[2022-08-11 11:01] LABS: ALBUMIN 3.3 G/DL (3.2-5.2); ALKALINE PHOSPHATASE 94 U/L (46-116); ALT/SGPT 28 U/L (7.0-40); AST/SGOT 18 U/L (<34); BILIRUBIN,TOTAL 0.3 MG/DL (0.3-1.2); BLOOD UREA NITROGEN 17 MG/DL (9-23); CALCIUM LEVEL 8.7 MG/DL (8.3-10.6); CARBON DIOXIDE LEVEL 25 MMOL/L (20-31); CHLORIDE LEVEL 109 MMOL/L (98-107); CHOLESTEROL LEVEL 102 MG/DL (<200); CHOLESTEROL RISK RATIO 4.37 (<5); CREATININE FOR GFR 0.69 MG/DL (0.70-1.30); GLOMERULAR FILTRATION RATE > 60.0 (>49); GLUCOSE, FASTING 87 MG/DL (74-106); HDL CHOLESTEROL 23.3 MG/DL (>40); LDL CHOLESTEROL 48.3 MG/DL (<100); NON-HDL-C 78.7 MG/DL; POTASSIUM SERUM 5.1 MMOL/L (3.5-5.1); SODIUM LEVEL 140 MMOL/L (136-145); TOTAL PROTEIN 6.9 G/DL (5.7-8.2); TRIGLYCERIDES LEVEL 152 MG/DL (<150)
[2022-08-11 11:03] LABS: TOTAL 25(OH) VITAMIN D 13.4 NG/ML (20.0-100.0)
== END ==
LOC: M PLALAB 08:22
PROVIDERS: ATTEND Student in an Organized Health Care Education/Training Program
DX: R73.03 Prediabetes (principal); I11.9 Hypertensive heart disease without heart failure; E78.5 Hyperlipidemia, unspecified; E55.9 Vitamin D deficiency, unspecified; Z13.89 Encounter for screening for other disorder; E03.9 Hypothyroidism, unspecified; I50.32 Chronic diastolic (congestive) heart failure

== ENCOUNTER → 2023-05-13 | Outpatient (CLI) | payer MEDICARE, MEDICAID ==
[~2023-05-13] MED LIST changes: -FLUT50SP17; -FLUT50SP17 NARES; +FLUTISP; +FLUTISP NARES
== END ==
LOC: M RAD 08:04
PROVIDERS: ATTEND Internal Medicine Pulmonary Disease
DX: Z87.891 Personal history of nicotine dependence (principal)

== ENCOUNTER → 2023-07-29 | Outpatient (CLI) | payer MEDICAID, MEDICARE ==
[2023-07-29 14:23] LABS: BASO # 0.1 10^3/uL (0.0-0.2); BASO % 0.5 % (0.0-1.0); EOS # 0.1 10^3/uL (0.0-0.5); EOS % 0.9 % (0.0-3.0); HEMATOCRIT 45.8 % (42.0-52.0); HEMOGLOBIN 14.5 g/dl (13.5-17.5); LYMPH # 2.5 10^3/uL (1.5-5.0); LYMPH % 18.9 % (24.0-44.0); MEAN CORPUSCULAR HEMOGLOBIN 31.6 pg (27.0-33.0); MEAN CORPUSCULAR HGB CONC 31.7 g/dl (32.0-36.5); MEAN CORPUSCULAR VOLUME 99.8 fl (80.0-96.0); MONO # 1.3 10^3/uL (0.0-0.8); MONO % 10.3 % (2.0-8.0); NEUTROPHILS % 69.1 % (36.0-66.0); PLATELET COUNT, AUTOMATED 557 10^3/uL (150-450); RED BLOOD COUNT 4.59 10^6/uL (4.30-6.10)
[2023-07-29 14:36] LABS: HEMOGLOBIN A1c 6.1 % (4.0-6.0)
[2023-07-29 14:58] LABS: ALBUMIN 3.4 G/DL (3.2-5.2); ALKALINE PHOSPHATASE 99 U/L (46-116); ALT/SGPT 22 U/L (7.0-40); AST/SGOT 13 U/L (<34); BILIRUBIN,TOTAL 0.4 MG/DL (0.3-1.2); BLOOD UREA NITROGEN 16 MG/DL (9-23); CALCIUM LEVEL 8.8 MG/DL (8.3-10.6); CARBON DIOXIDE LEVEL 25 MMOL/L (20-31); CHLORIDE LEVEL 108 MMOL/L (98-107); CHOLESTEROL LEVEL 127 MG/DL (<200); CHOLESTEROL RISK RATIO 4.75 (<5); CREATININE FOR GFR 0.65 MG/DL (0.70-1.30); GLOMERULAR FILTRATION RATE > 60.0 (>49); GLUCOSE, FASTING 102 MG/DL (74-106); HDL CHOLESTEROL 26.7 MG/DL (>40); LDL CHOLESTEROL 75.5 MG/DL (<100); NON-HDL-C 100.3 MG/DL; POTASSIUM SERUM 4.3 MMOL/L (3.5-5.1); SODIUM LEVEL 139 MMOL/L (136-145); TOTAL PROTEIN 7.1 G/DL (5.7-8.2); TRIGLYCERIDES LEVEL 124 MG/DL (<150)
== END ==
LOC: M PLALAB 09:37
PROVIDERS: ATTEND Student in an Organized Health Care Education/Training Program
DX: E78.5 Hyperlipidemia, unspecified (principal); I10 Essential (primary) hypertension; R73.03 Prediabetes; E55.9 Vitamin D deficiency, unspecified

== ENCOUNTER → 2023-07-29 | Outpatient (REF) | payer MEDICARE | LOC: M SFHCPLAZ 13:50 | PROVIDERS: ATTEND Student in an Organized Health Care Education/Training Program | DX: I10 Essential (primary) hypertension (principal); E78.5 Hyperlipidemia, unspecified; R73.03 Prediabetes; E55.9 Vitamin D deficiency, unspecified ==

== ENCOUNTER → 2024-01-28 | Outpatient (REF) | payer MEDICARE | LOC: M SFHCPLAZ 15:55 | PROVIDERS: ATTEND Student in an Organized Health Care Education/Training Program | DX: Z00.00 Encounter for general adult medical examination without abnormal findings (principal); Z53.9 Procedure and treatment not carried out, unspecified reason ==

== ENCOUNTER → 2024-02-15 | Outpatient (CLI) | payer MEDICARE ==
[2024-02-15 11:45] LABS: HEMATOCRIT 46.1 % (42.0-52.0); HEMOGLOBIN 14.7 g/dl (13.5-17.5); MEAN CORPUSCULAR HEMOGLOBIN 32.3 pg (27.0-33.0); MEAN CORPUSCULAR HGB CONC 31.9 g/dl (32.0-36.5); MEAN CORPUSCULAR VOLUME 101.3 fl (80.0-96.0); RED BLOOD COUNT 4.55 10^6/uL (4.30-6.10); WHITE BLOOD COUNT 12.7 10^3/uL (4.0-10.0)
[2024-02-15 11:46] LABS: BASO # 0.1 10^3/uL (0.0-0.2); BASO % 0.6 % (0.0-1.0); EOS # 0.1 10^3/uL (0.0-0.5); EOS % 0.8 % (0.0-3.0); LYMPH # 2.1 10^3/uL (1.5-5.0); LYMPH % 16.5 % (24.0-44.0); MONO # 1.4 10^3/uL (0.0-0.8); NEUTROPHILS % 70.7 % (36.0-66.0); PLATELET COUNT, AUTOMATED 541 10^3/uL (150-450)
[2024-02-15 11:52] LABS: PSA SCREENING 2.02 NG/ML (< 4.00)
[2024-02-15 11:56] LABS: ALBUMIN 3.3 G/DL (3.2-5.2); ALKALINE PHOSPHATASE 86 U/L (40-129); ALT/SGPT 19 U/L (7.0-40); AST/SGOT 10 U/L (<34); BILIRUBIN,TOTAL 0.5 MG/DL (0.3-1.2); BLOOD UREA NITROGEN 20 MG/DL (9-23); CALCIUM LEVEL 9.1 MG/DL (8.3-10.6); CARBON DIOXIDE LEVEL 24 MMOL/L (20-31); CHLORIDE LEVEL 111 MMOL/L (98-107); CHOLESTEROL LEVEL 101 MG/DL (<200); CHOLESTEROL RISK RATIO 4.08 (<5); CREATININE FOR GFR 0.61 MG/DL (0.70-1.30); GLOMERULAR FILTRATION RATE > 60.0 (>49); GLUCOSE, FASTING 106 MG/DL (74-106); HDL CHOLESTEROL 24.7 MG/DL (>40); LDL CHOLESTEROL 52.9 MG/DL (<100); NON-HDL-C 76.3 MG/DL; POTASSIUM SERUM 4.6 MMOL/L (3.5-5.1); SODIUM LEVEL 143 MMOL/L (136-145); TOTAL PROTEIN 7.3 G/DL (5.7-8.2); TRIGLYCERIDES LEVEL 117 MG/DL (<150)
== END ==
LOC: M PLALAB 08:27
PROVIDERS: ATTEND Student in an Organized Health Care Education/Training Program
DX: Z00.00 Encounter for general adult medical examination without abnormal findings (principal); E78.00 Pure hypercholesterolemia, unspecified; Z12.5 Encounter for screening for malignant neoplasm of prostate
CPT/HCPCS: 36415; 80053; 80061; 80177; 83036; 85025; G0103

== ENCOUNTER 2024-04-16 14:04 | Emergency (ER) | payer MEDICARE ==
[~2024-04-16] VITALS: Ht 154.9 cm; Wt 78.8 kg
[2024-04-16] MEDS ORDERED: DEBR6.5S4 OTIC (15:14)
[2024-04-16 15:15] VITALS: BP 156/82; TEMP 97.6; O2SAT 96
== END 2024-04-16 15:20 | disposition home or self-care (01) ==
LOC: M ED 14:04
DX: H61.23 Impacted cerumen, bilateral (principal); Z20.7 Contact with and (suspected) exposure to pediculosis, acariasis and other infestations; I25.2 Old myocardial infarction; I10 Essential (primary) hypertension; Z88.8 Allergy status to other drugs, medicaments and biological substances; Z79.51 Long term (current) use of inhaled steroids; Z79.899 Other long term (current) drug therapy

== ENCOUNTER 2024-05-20 08:55 | Day surgery (SDC) | payer MEDICARE, OTHER ==
[~2024-05-20] VITALS: Ht 154.9 cm; Wt 73.5 kg
[~2024-05-20 08:55] MED LIST changes: +ASPI81TA26 PO; +CETI10CH PO; +DEBR6.5S4 OTIC; -LOSA25TA13; +LOSA25TA13 PO; +METF500T13 PO; +VITA100093 PO
[2024-05-20 10:28] VITALS: TEMP 97.2
[2024-05-20] MEDS: KETOROLAC 30 MG/ML 1ML VIAL IV STA (10:43)
[2024-05-20 11:05] VITALS: BP 176/94; O2SAT 92
[2024-05-20] MEDS ORDERED: propofoL 200 MG/20 ML VIAL As Ordered ONE (11:11)
== END 2024-05-20 11:20 | disposition home or self-care (01) ==
LOC: M OPP 08:55
PROVIDERS: ATTEND Surgery
DX: K57.30 Diverticulosis of large intestine without perforation or abscess without bleeding (principal); Z86.0100 Personal history of colon polyps, unspecified; Z86.73 Personal history of transient ischemic attack (TIA), and cerebral infarction without residual deficits; G47.30 Sleep apnea, unspecified; Z88.1 Allergy status to other antibiotic agents; Z88.8 Allergy status to other drugs, medicaments and biological substances; Z79.82 Long term (current) use of aspirin; Z79.84 Long term (current) use of oral hypoglycemic drugs; Z79.899 Other long term (current) drug therapy; R56.9 Unspecified convulsions; Z87.891 Personal history of nicotine dependence
CPT/HCPCS: G0105; J1885

== ENCOUNTER → 2024-05-24 | Outpatient (CLI) | payer MEDICARE, OTHER | LOC: M RAD 12:04 | PROVIDERS: ATTEND Internal Medicine Pulmonary Disease | DX: Z87.891 Personal history of nicotine dependence (principal) ==

== ENCOUNTER → 2024-07-06 | Outpatient (REF) | payer MEDICARE, OTHER ==
[2024-07-06 13:32] LABS: HEMATOCRIT 44.7 % (42.0-52.0)
[2024-07-06 13:33] LABS: BASO # 0.1 10^3/uL (0.0-0.2); BASO % 0.6 % (0.0-1.0); EOS % 0.3 % (0.0-3.0); HEMATOCRIT 45.9 % (42.0-52.0); HEMOGLOBIN 14.4 g/dl (13.5-17.5); LYMPH # 2.1 10^3/uL (1.5-5.0); LYMPH % 15.5 % (24.0-44.0); MEAN CORPUSCULAR HEMOGLOBIN 32.4 pg (27.0-33.0); MEAN CORPUSCULAR HGB CONC 31.4 g/dl (32.0-36.5); MEAN CORPUSCULAR VOLUME 103.1 fl (80.0-96.0); MONO # 1.2 10^3/uL (0.0-0.8); MONO % 8.9 % (2.0-8.0); NEUTROPHILS # 10.1 10^3/uL (1.5-8.5); NEUTROPHILS % 74.3 % (36.0-66.0); PLATELET COUNT, AUTOMATED 519 10^3/uL (150-450); RED BLOOD COUNT 4.45 10^6/uL (4.30-6.10); WHITE BLOOD COUNT 13.6 10^3/uL (4.0-10.0)
[2024-07-06 13:41] LABS: ALBUMIN 3.4 G/DL (3.2-5.2); ALKALINE PHOSPHATASE 89 U/L (40-129); ALT/SGPT 21 U/L (7.0-40); AST/SGOT 13 U/L (<34); BILIRUBIN,TOTAL 0.7 MG/DL (0.3-1.2); BLOOD UREA NITROGEN 20 MG/DL (9-23); CALCIUM LEVEL 8.7 MG/DL (8.3-10.6); CARBON DIOXIDE LEVEL 20 MMOL/L (20-31); CHLORIDE LEVEL 108 MMOL/L (98-107); CHOLESTEROL LEVEL 76 MG/DL (<200); CHOLESTEROL RISK RATIO 3.87 (<5); CREATININE FOR GFR 0.63 MG/DL (0.70-1.30); GLOMERULAR FILTRATION RATE > 90.0 (>49); GLUCOSE, FASTING 102 MG/DL (74-106); HDL CHOLESTEROL 19.6 MG/DL (>40); LDL CHOLESTEROL 28.4 MG/DL (<100); NON-HDL-C 56.4 MG/DL; POTASSIUM SERUM 4.2 MMOL/L (3.5-5.1); PSA SCREENING 2.14 NG/ML (< 4.00); SODIUM LEVEL 138 MMOL/L (136-145); TOTAL PROTEIN 7.3 G/DL (5.7-8.2); TRIGLYCERIDES LEVEL 140 MG/DL (<150)
[2024-07-06 13:43] LABS: VITAMIN B12 LEVEL 392 PG/ML (211-911)
[2024-07-06 14:00] LABS: HEMOGLOBIN A1c 5.8 % (4.0-6.0)
== END ==
LOC: M SFHCPLAZ 08:56
PROVIDERS: ATTEND Student in an Organized Health Care Education/Training Program
DX: Z12.5 Encounter for screening for malignant neoplasm of prostate (principal); Z79.899 Other long term (current) drug therapy; G40.909 Epilepsy, unspecified, not intractable, without status epilepticus; I10 Essential (primary) hypertension; E55.9 Vitamin D deficiency, unspecified; R73.03 Prediabetes; E78.5 Hyperlipidemia, unspecified
CPT/HCPCS: 80053; 80061; 82607; 82652; 82747; 83036; 85025; G0103

== ENCOUNTER → 2024-07-12 | Outpatient (CLI) | payer MEDICARE | LOC: M PLALAB 07:48 | PROVIDERS: ATTEND Student in an Organized Health Care Education/Training Program | DX: D75.839 Thrombocytosis, unspecified (principal) ==

== ENCOUNTER 2024-07-21 06:18 | Inpatient (IN) | payer MEDICARE ==
[~2024-07-21] VITALS: Ht 154.9 cm; Wt 74.2 kg
[2024-07-21] VITALS (12 sets, daily range): BP systolic 133–150; BP diastolic 80–98; TEMP 97.7–98.2; O2SAT 89–95
[2024-07-21 06:46] LABS: VENOUS BASE EXCESS -8.6 (-2.0-2.0); VENOUS HCO3 17.1 MMOL/L (23.0-27.0); VENOUS O2 SATURATION 38.5 % (60.0-80.0); VENOUS PARTIAL PRESSURE CO2 36.3 mmHg (38.0-50.0); VENOUS PARTIAL PRESSURE O2 26.3 mmHg (30.0-50.0); VENOUS PH 7.291 UNITS (7.330-7.430); VENOUS STANDARD HCO3 16.4 MMOL/L; VENOUS TOTAL CO2 18.2 MMOL/L (24.0-28.0)
[2024-07-21 06:59] LABS: HEMATOCRIT 45.9 % (42.0-52.0); HEMOGLOBIN 14.6 g/dl (13.5-17.5); MEAN CORPUSCULAR HGB CONC 31.8 g/dl (32.0-36.5); MEAN CORPUSCULAR VOLUME 103.8 fl (80.0-96.0); PLATELET COUNT, AUTOMATED 372 10^3/uL (150-450); RED BLOOD COUNT 4.42 10^6/uL (4.30-6.10); WHITE BLOOD COUNT 10.2 10^3/uL (4.0-10.0)
[2024-07-21 07:09] LABS: D-DIMER QUANT 0.28 ug/mL (<0.5); INR 1.13; PROTHROMBIN TIME 14.8 SECONDS (12.5-14.5)
[2024-07-21 07:34] LABS: CK-MB VALUE MASS < 1.0 NG/ML (<3.6)
[2024-07-21 07:36] LABS: ALBUMIN 3.3 G/DL (3.2-5.2); ALKALINE PHOSPHATASE 103 U/L (40-129); ALT/SGPT 18 U/L (7.0-40); AST/SGOT 21 U/L (<34); BILIRUBIN,DIRECT 0.2 MG/DL (<0.4); BILIRUBIN,TOTAL 0.4 MG/DL (0.3-1.2); BLOOD UREA NITROGEN 21 MG/DL (9-23); CALCIUM LEVEL 8.7 MG/DL (8.3-10.6); CARBON DIOXIDE LEVEL 21 MMOL/L (20-31); CHLORIDE LEVEL 111 MMOL/L (98-107); CREATININE FOR GFR 0.63 MG/DL (0.70-1.30); GLOMERULAR FILTRATION RATE > 90.0 (>49); GLUCOSE, FASTING 118 MG/DL (74-106); POTASSIUM SERUM 4.5 MMOL/L (3.5-5.1); SODIUM LEVEL 143 MMOL/L (136-145); TOTAL PROTEIN 7.3 G/DL (5.7-8.2)
[2024-07-21 07:40] LABS: ATYPICAL LYMPH 1 % (0-5); BASOPHILS 2 % (0-1); LYMPHOCYTES 26 % (16-44); MONOCYTES 8 % (0-5); NEUTROPHILS 63 % (28-66); PLATELET ESTIMATE NORMAL (NORMAL)
[2024-07-21 07:42] LABS: CPK CREATINE PHOSPHOKINASE 35 U/L (46-171); MB/CK RELATIVE INDEX 2.85 (< OR =4)
[2024-07-21] MEDS ORDERED: ISOVUE-370 76% 100ML VIAL As Ordered ONE (07:44)
[2024-07-21] MEDS: IPRATROPIUM 0.5MG/ALBUTEROL 2.5MG INH SOL UD 3ML NEB ONE (08:11)
[2024-07-21] MEDS: ALBUTEROL SULFATE 2.5MG/0.5ML INH CONCENTRATE NEB SOLN INH ONE (08:11)
[2024-07-21] MEDS: methylPREDNISolone 125MG 2ML VIAL IV ONE (08:12)
[2024-07-21 08:25] LABS: CK-MB VALUE MASS < 1.0 NG/ML (<3.6)
[2024-07-21 08:26] LABS: CPK CREATINE PHOSPHOKINASE 32 U/L (46-171); MB/CK RELATIVE INDEX 3.12 (< OR =4)
[2024-07-21 08:34] LABS: ABG BASE EXCESS -6.7 (-2.0-2.0); ABG HCO3 15.5 MMOL/L (22.0-26.0); ABG PARTIAL PRESSURE O2 75.1 mmHg (75.0-100.0); ABG TOTAL CO2 16.3 MMOL/L (23.0-31.0); ABG pH (ARTERIAL) 7.429 UNITS (7.350-7.450)
[2024-07-21] MEDS: PERCOCET 5MG/325MG TAB PO ONE (09:04)
[2024-07-21] MEDS: FUROSEMIDE 40MG/4ML VIAL IV ONE (09:59)
[2024-07-21] MEDS ORDERED: ATOR40TA75 PO (10:14)
[2024-07-21] MEDS ORDERED: VITA200030 PO (10:14)
[2024-07-21] MEDS ORDERED: ASPI81CH33 PO (10:14)
[2024-07-21] MEDS ORDERED: CETI-24 PO (10:14)
[2024-07-21] MEDS ORDERED: ACET-683 PO (10:14)
[2024-07-21] MEDS ORDERED: HOME MED LIST COMPLETE! XX SCH (10:15)
[2024-07-21 11:24] LABS: PROCALCITONIN 0.09 ng/ml
[2024-07-21] MEDS ORDERED: MOM 30ML SUSPENSION UDC PO PRN (11:55)
[2024-07-21] MEDS: NITROGLYCERIN 0.4MG SUBL TABLET SL STA (12:13)
[2024-07-21] MEDS: NITROGLYCERIN/D5W 100MCG/ML 25 MG in IV 1 EA IV SCH (12:15)
[2024-07-21] MEDS: ENOXAPARIN 40MG/0.4ML SYRINGE (J1650 PER 10MG) SC SCH (13:23)
[2024-07-21] MEDS: LOSARTAN 25 MG TAB PO SCH (13:24)
[2024-07-21] MEDS: ACETAMINOPHEN 325 MG TAB PO PRN (15:49)
[2024-07-21] MEDS ORDERED: FUROSEMIDE 100MG/10ML VIAL IV SCH (17:00)
[2024-07-21] MEDS: FUROSEMIDE 100MG/10ML VIAL IV SCH (17:45)
[2024-07-21] MEDS: VITAMIN D 1,000 INTERNATIONAL UNITS TABLET PO SCH (20:28)
[2024-07-21] MEDS: levETIRAcetam 250MG TABLET (KEPPRA) PO SCH (20:28)
[2024-07-21] MEDS: CETIRIZINE (ZyrTEC) 10 MG TAB PO SCH (20:31)
[2024-07-21] MEDS: ATORVASTATIN 20 MG TAB PO SCH (20:32)
[2024-07-21] MEDS: SUCRALFATE 1 GM TAB PO SCH (20:32)
[2024-07-21] MEDS: DOCUSATE SODIUM 100MG CAPSULE PO SCH (20:32)
[2024-07-22] VITALS (27 sets, daily range): BP systolic 98–141; BP diastolic 31–93; TEMP 97.8–98.9; O2SAT 87–94
[2024-07-22 06:10] LABS: HEMATOCRIT 45.3 % (42.0-52.0); HEMOGLOBIN 14.8 g/dl (13.5-17.5); MEAN CORPUSCULAR HEMOGLOBIN 32.3 pg (27.0-33.0); MEAN CORPUSCULAR HGB CONC 32.7 g/dl (32.0-36.5); MEAN CORPUSCULAR VOLUME 98.9 fl (80.0-96.0); PLATELET COUNT, AUTOMATED 400 10^3/uL (150-450); RED BLOOD COUNT 4.58 10^6/uL (4.30-6.10); WHITE BLOOD COUNT 20.1 10^3/uL (4.0-10.0)
[2024-07-22 06:39] LABS: BLOOD UREA NITROGEN 22 MG/DL (9-23); CARBON DIOXIDE LEVEL 22 MMOL/L (20-31); CHLORIDE LEVEL 110 MMOL/L (98-107); CREATININE FOR GFR 0.72 MG/DL (0.70-1.30); GLOMERULAR FILTRATION RATE > 90.0 (>49); GLUCOSE, FASTING 129 MG/DL (74-106); MAGNESIUM LEVEL 1.8 MG/DL (1.8-2.4); POTASSIUM SERUM 3.9 MMOL/L (3.5-5.1); SODIUM LEVEL 140 MMOL/L (136-145)
[2024-07-22] MEDS: ASPIRIN 81MG CHEW TABLET PO SCH (09:16)
[2024-07-22] MEDS: LOSARTAN 50MG TABLET PO SCH (09:17)
[2024-07-22] MEDS: FUROSEMIDE 40MG/4ML VIAL IV SCH (09:18)
[2024-07-22] MEDS ORDERED: LEVALBUTEROL 1.25 MG 0.5ML CONCENTRATE NEB INH PRN (17:10)
[2024-07-22] MEDS: METOPROLOL TART 25 MG TABLET PO SCH (17:28)
[2024-07-22] MEDS: PERCOCET 5MG/325MG TAB PO ONE (20:55)
[2024-07-23] VITALS (35 sets, daily range): BP systolic 92–134; BP diastolic 63–88; TEMP 97.1–98; O2SAT 85–95
[2024-07-23 06:00] LABS: HEMATOCRIT 49.8 % (42.0-52.0); HEMOGLOBIN 15.8 g/dl (13.5-17.5); MEAN CORPUSCULAR HEMOGLOBIN 32.6 pg (27.0-33.0); MEAN CORPUSCULAR HGB CONC 31.7 g/dl (32.0-36.5); MEAN CORPUSCULAR VOLUME 102.7 fl (80.0-96.0); PLATELET COUNT, AUTOMATED 397 10^3/uL (150-450); RED BLOOD COUNT 4.85 10^6/uL (4.30-6.10); WHITE BLOOD COUNT 16.7 10^3/uL (4.0-10.0)
[2024-07-23 06:20] LABS: GLOMERULAR FILTRATION RATE 84.1 (>49); MAGNESIUM LEVEL 2.1 MG/DL (1.8-2.4)
[2024-07-23] MEDS: POTASSIUM CHLORIDE 10MEQ SR TABLET PO SCH (10:09)
[2024-07-23] MEDS: FUROSEMIDE 40 MG TAB PO SCH (10:10)
[2024-07-24] VITALS (13 sets, daily range): BP systolic 125–129; BP diastolic 67–95; TEMP 96.9–97.3; O2SAT 87–95
[2024-07-24 04:05] LABS: HEMATOCRIT 46.7 % (42.0-52.0); HEMOGLOBIN 15.2 g/dl (13.5-17.5); MEAN CORPUSCULAR HGB CONC 32.5 g/dl (32.0-36.5); MEAN CORPUSCULAR VOLUME 101.3 fl (80.0-96.0); PLATELET COUNT, AUTOMATED 348 10^3/uL (150-450); RED BLOOD COUNT 4.61 10^6/uL (4.30-6.10); WHITE BLOOD COUNT 15.3 10^3/uL (4.0-10.0)
[2024-07-24 04:27] LABS: BLOOD UREA NITROGEN 35 MG/DL (9-23); CARBON DIOXIDE LEVEL 24 MMOL/L (20-31); CHLORIDE LEVEL 107 MMOL/L (98-107); CREATININE FOR GFR 0.77 MG/DL (0.70-1.30); GLOMERULAR FILTRATION RATE > 90.0 (>49); GLUCOSE, FASTING 107 MG/DL (74-106); MAGNESIUM LEVEL 2.1 MG/DL (1.8-2.4); POTASSIUM SERUM 4.1 MMOL/L (3.5-5.1); SODIUM LEVEL 141 MMOL/L (136-145)
[2024-07-24] MEDS ORDERED: LOSA-528 PO (10:02)
[2024-07-24] MEDS ORDERED: FURO40TA2 PO (10:02)
[2024-07-24] MEDS ORDERED: POTA-136 PO (10:02)
[2024-07-24] MEDS ORDERED: METO1TAB87 PO (10:02)
== END 2024-07-24 12:49 | disposition home or self-care (01) | DRG 291 ==
LOC: M ED 06:18 → M ED INP 11:53 → M PCU 15:06
PROVIDERS: ADMIT Student in an Organized Health Care Education/Training Program; ATTEND Student in an Organized Health Care Education/Training Program
PROC: B246ZZZ Ultrasonography of Right and Left Heart (ICD-10-PCS; principal; 2024-07-23)
DX: I11.0 Hypertensive heart disease with heart failure (principal); J96.01 Acute respiratory failure with hypoxia; I50.33 Acute on chronic diastolic (congestive) heart failure; J81.0 Acute pulmonary edema; I16.1 Hypertensive emergency; J90 Pleural effusion, not elsewhere classified; E87.20 Acidosis, unspecified; I47.10 Supraventricular tachycardia, unspecified; G40.909 Epilepsy, unspecified, not intractable, without status epilepticus; J44.9 Chronic obstructive pulmonary disease, unspecified; D69.6 Thrombocytopenia, unspecified; I27.20 Pulmonary hypertension, unspecified; E78.5 Hyperlipidemia, unspecified; Z87.891 Personal history of nicotine dependence; Z86.73 Personal history of transient ischemic attack (TIA), and cerebral infarction without residual deficits; Z90.49 Acquired absence of other specified parts of digestive tract; Z79.82 Long term (current) use of aspirin; Z79.899 Other long term (current) drug therapy; Z79.84 Long term (current) use of oral hypoglycemic drugs; Z88.1 Allergy status to other antibiotic agents; Z88.8 Allergy status to other drugs, medicaments and biological substances

== ENCOUNTER 2024-08-08 14:46 | Emergency (ER) | payer MEDICAID, MEDICARE, OTHER ==
[~2024-08-08] VITALS: Ht 157.5 cm; Wt 74.1 kg
[~2024-08-08 14:46] MED LIST changes: +ACET-683 PO; +ASPI81CH33 PO; +ATOR40TA75 PO; +CETI-24 PO; +FURO40TA2 PO; +LOSA-528 PO; +METO1TAB87 PO; +POTA-136 PO; +VITA200030 PO
[2024-08-08 15:53] LABS: HEMATOCRIT 52.3 % (42.0-52.0); HEMOGLOBIN 16.6 g/dl (13.5-17.5); MEAN CORPUSCULAR HEMOGLOBIN 32.8 pg (27.0-33.0); MEAN CORPUSCULAR HGB CONC 31.7 g/dl (32.0-36.5); MEAN CORPUSCULAR VOLUME 103.4 fl (80.0-96.0); PLATELET COUNT, AUTOMATED 454 10^3/uL (150-450); RED BLOOD COUNT 5.06 10^6/uL (4.30-6.10)
[2024-08-08 16:01] LABS: WHITE BLOOD COUNT 9.9 10^3/uL (4.0-10.0)
[2024-08-08 16:40] LABS: ATYPICAL LYMPH 3 % (0-5); BASOPHILS 1 % (0-1); LYMPHOCYTES 35 % (16-44); MONOCYTES 7 % (0-5); NEUTROPHILS 54 % (28-66); PLATELET ESTIMATE INCREASED (NORMAL)
[2024-08-08 17:28] LABS: ALBUMIN 3.6 G/DL (3.2-5.2); ALKALINE PHOSPHATASE 97 U/L (40-129); ALT/SGPT 25 U/L (7.0-40); AST/SGOT 23 U/L (<34); BILIRUBIN,DIRECT 0.3 MG/DL (<0.4); BILIRUBIN,TOTAL 0.8 MG/DL (0.3-1.2); BLOOD UREA NITROGEN 26 MG/DL (9-23); CALCIUM LEVEL 9.6 MG/DL (8.3-10.6); CARBON DIOXIDE LEVEL 21 MMOL/L (20-31); CHLORIDE LEVEL 108 MMOL/L (98-107); CREATININE FOR GFR 0.79 MG/DL (0.70-1.30); GLOMERULAR FILTRATION RATE > 90.0 (>49); GLUCOSE, FASTING 103 MG/DL (74-106); POTASSIUM SERUM 5.1 MMOL/L (3.5-5.1); SODIUM LEVEL 139 MMOL/L (136-145); TOTAL PROTEIN 7.3 G/DL (5.7-8.2)
[2024-08-08] MEDS: MECLIZINE 12.5 MG TAB PO ONE (20:37)
[2024-08-08] MEDS: FUROSEMIDE 40MG/4ML VIAL IV ONE (20:37)
[2024-08-08 20:38] VITALS: TEMP 98.6
[2024-08-08 21:24] VITALS: BP 116/80; O2SAT 89
== END 2024-08-08 21:39 | disposition home or self-care (01) ==
LOC: M ED 14:46
DX: I50.22 Chronic systolic (congestive) heart failure (principal); I50.82 Biventricular heart failure; E11.9 Type 2 diabetes mellitus without complications; I11.0 Hypertensive heart disease with heart failure; I25.2 Old myocardial infarction; I45.10 Unspecified right bundle-branch block; Z88.8 Allergy status to other drugs, medicaments and biological substances; Z79.1 Long term (current) use of non-steroidal anti-inflammatories (NSAID); Z79.84 Long term (current) use of oral hypoglycemic drugs; Z79.899 Other long term (current) drug therapy
CPT/HCPCS: 70450; 71045; 80047; 80048; 80076; 83880; 85025; 93005; 93041; 94760; 96374; 99285; J1938

== ENCOUNTER 2024-08-12 14:36 | Emergency (ER) | payer MEDICARE ==
[~2024-08-12] VITALS: Ht 154.9 cm; Wt 75.0 kg
[2024-08-12 16:36] LABS: HEMATOCRIT 50.3 % (42.0-52.0); MEAN CORPUSCULAR HEMOGLOBIN 32.6 pg (27.0-33.0); MEAN CORPUSCULAR HGB CONC 31.8 g/dl (32.0-36.5); MEAN CORPUSCULAR VOLUME 102.4 fl (80.0-96.0); PLATELET COUNT, AUTOMATED 417 10^3/uL (150-450); RED BLOOD COUNT 4.91 10^6/uL (4.30-6.10); WHITE BLOOD COUNT 11.7 10^3/uL (4.0-10.0)
[2024-08-12 16:50] LABS: VENOUS BASE EXCESS -10.5 (-2.0-2.0); VENOUS HCO3 14.5 MMOL/L (23.0-27.0); VENOUS O2 SATURATION 78.1 % (60.0-80.0); VENOUS PARTIAL PRESSURE CO2 30.5 mmHg (38.0-50.0); VENOUS PARTIAL PRESSURE O2 44.3 mmHg (30.0-50.0); VENOUS PH 7.294 UNITS (7.330-7.430); VENOUS TOTAL CO2 15.4 MMOL/L (24.0-28.0)
[2024-08-12 17:08] LABS: ALBUMIN 3.5 G/DL (3.2-5.2); ALKALINE PHOSPHATASE 95 U/L (40-129); ALT/SGPT 17 U/L (7.0-40); AST/SGOT 12 U/L (<34); BILIRUBIN,DIRECT 0.3 MG/DL (<0.4); BILIRUBIN,TOTAL 0.8 MG/DL (0.3-1.2); BLOOD UREA NITROGEN 35 MG/DL (9-23); CALCIUM LEVEL 8.9 MG/DL (8.3-10.6); CARBON DIOXIDE LEVEL 16 MMOL/L (20-31); CHLORIDE LEVEL 109 MMOL/L (98-107); CREATININE FOR GFR 0.87 MG/DL (0.70-1.30); GLOMERULAR FILTRATION RATE > 90.0 (>49); GLUCOSE, FASTING 100 MG/DL (74-106); POTASSIUM SERUM 4.4 MMOL/L (3.5-5.1); SODIUM LEVEL 138 MMOL/L (136-145); TOTAL PROTEIN 7.2 G/DL (5.7-8.2)
[2024-08-12 17:24] LABS: ANISOCYTOSIS 1+; ATYPICAL LYMPH 4 % (0-5); LYMPHOCYTES 20 % (16-44); MONOCYTES 3 % (0-5); NEUTROPHILS 73 % (28-66); PLATELET ESTIMATE NORMAL (NORMAL)
[2024-08-12] MEDS ORDERED: ISOVUE-370 76% 100ML VIAL As Ordered ONE (18:03)
[2024-08-12 18:16] LABS: CK-MB VALUE MASS < 1.0 NG/ML (<3.6)
[2024-08-12 18:17] LABS: CPK CREATINE PHOSPHOKINASE 19 U/L (46-171); MB/CK RELATIVE INDEX 5.26 (< OR =4)
[2024-08-12 18:40] LABS: VENOUS HCO3 17.4 MMOL/L (23.0-27.0); VENOUS O2 SATURATION 62.1 % (60.0-80.0); VENOUS PARTIAL PRESSURE O2 33.7 mmHg (30.0-50.0); VENOUS PH 7.303 UNITS (7.330-7.430); VENOUS STANDARD HCO3 17.3 MMOL/L; VENOUS TOTAL CO2 18.5 MMOL/L (24.0-28.0)
[2024-08-12 18:59] LABS: CK-MB VALUE MASS < 1.0 NG/ML (<3.6)
[2024-08-12 19:01] LABS: CPK CREATINE PHOSPHOKINASE 15 U/L (46-171); MB/CK RELATIVE INDEX 6.66 (< OR =4)
[2024-08-12 21:19] LABS: CK-MB VALUE MASS < 1.0 NG/ML (<3.6)
[2024-08-12 21:20] LABS: CPK CREATINE PHOSPHOKINASE 15 U/L (46-171); MB/CK RELATIVE INDEX 6.66 (< OR =4)
[2024-08-12] MEDS: ACETAMINOPHEN 325 MG TAB PO ONE (21:38)
[2024-08-12 22:02] VITALS: O2SAT 92
[2024-08-12 22:45] VITALS: BP 130/87; TEMP 97.1; O2SAT 94
== END 2024-08-12 23:10 | disposition home or self-care (01) ==
LOC: M ED 14:36 → EDBD 14:36 → M ED 23:10
DX: R06.02 Shortness of breath (principal); I45.10 Unspecified right bundle-branch block; I25.2 Old myocardial infarction; I10 Essential (primary) hypertension; J44.9 Chronic obstructive pulmonary disease, unspecified; G47.33 Obstructive sleep apnea (adult) (pediatric); Z86.73 Personal history of transient ischemic attack (TIA), and cerebral infarction without residual deficits; Z87.891 Personal history of nicotine dependence; Z88.8 Allergy status to other drugs, medicaments and biological substances; Z79.1 Long term (current) use of non-steroidal anti-inflammatories (NSAID); Z79.84 Long term (current) use of oral hypoglycemic drugs; Z79.899 Other long term (current) drug therapy
CPT/HCPCS: 36415; 70450; 71045; 71275; 80048; 80076; 82550; 82553; 82803; 83605; 84484; 85025; 87040; 87486; 87581; 87633; 87798; 93005; 93041; 94760; 99285; Q9967

== ENCOUNTER 2024-09-17 12:03 | Inpatient (IN) | payer MEDICARE, OTHER ==
[~2024-09-17] VITALS: Ht 157.5 cm; Wt 72.4 kg
[2024-09-17 12:38] LABS: HEMATOCRIT 45.1 % (42.0-52.0); HEMOGLOBIN 14.6 g/dl (13.5-17.5); MEAN CORPUSCULAR HEMOGLOBIN 33.2 pg (27.0-33.0); MEAN CORPUSCULAR HGB CONC 32.4 g/dl (32.0-36.5); MEAN CORPUSCULAR VOLUME 102.5 fl (80.0-96.0); PLATELET COUNT, AUTOMATED 274 10^3/uL (150-450); WHITE BLOOD COUNT 21.2 10^3/uL (4.0-10.0)
[2024-09-17 12:44] LABS: INR 1.28; PROTHROMBIN TIME 16.2 SECONDS (12.5-14.5)
[2024-09-17 13:05] LABS: LIPASE 24 U/L (12-53)
[2024-09-17 13:06] LABS: CK-MB VALUE MASS 2.9 NG/ML (<3.6)
[2024-09-17 13:08] LABS: ALKALINE PHOSPHATASE 131 U/L (40-129); ALT/SGPT 48 U/L (7.0-40); AST/SGOT 52 U/L (<34); BILIRUBIN,DIRECT 0.5 MG/DL (<0.4); BILIRUBIN,TOTAL 1.1 MG/DL (0.3-1.2); BLOOD UREA NITROGEN 22 MG/DL (9-23); CALCIUM LEVEL 8.1 MG/DL (8.3-10.6); CARBON DIOXIDE LEVEL 22 MMOL/L (20-31); CHLORIDE LEVEL 109 MMOL/L (98-107); CREATININE FOR GFR 0.63 MG/DL (0.70-1.30); GLOMERULAR FILTRATION RATE > 90.0 (>49); GLUCOSE, FASTING 135 MG/DL (74-106); MAGNESIUM LEVEL 2.1 MG/DL (1.8-2.4); POTASSIUM SERUM 4.5 MMOL/L (3.5-5.1); SODIUM LEVEL 142 MMOL/L (136-145); TOTAL PROTEIN 6.5 G/DL (5.7-8.2)
[2024-09-17 13:09] LABS: THYROID STIMULATING HORMONE 1.153 uIU/ML (0.55-4.78)
[2024-09-17] MEDS: MORPHINE 4 MG/ML 1 ML VIAL IV ONE (13:14)
[2024-09-17 13:16] LABS: ANISOCYTOSIS 2+; LYMPHOCYTES 9 % (16-44); MONOCYTES 3 % (0-5); NEUTROPHILS 88 % (28-66); PLATELET ESTIMATE INCREASED (NORMAL); POIKILOCYTOSIS 1+
[2024-09-17 13:21] LABS: CPK CREATINE PHOSPHOKINASE 113 U/L (46-171); MB/CK RELATIVE INDEX 2.56 (< OR =4)
[2024-09-17 13:34] LABS: KETONE, URINE AUTO RFX TRACE mg/dL (NEGATIVE); LEUKOCYTE ESTERASE UR AUTO RFX NEGATIVE (NEGATIVE); MUCUS, URINE RFX SMALL (NEGATIVE); NITRITE, URINE AUTO RFX NEGATIVE (NEGATIVE); RBC, URINE AUTO RFX 22 /HPF (0-3); SQUAM EPITHELIAL CELL UR AURFX 0 /HPF (0-6); WBC, URINE AUTO RFX 7 /HPF (0-3)
[2024-09-17] MEDS ORDERED: ISOVUE-370 76% 100 ML VIAL As Ordered ONE (13:38)
[2024-09-17] MEDS: LevoFLOXacin IV 750 MG in IV 1 EA IV ONE (14:04)
[2024-09-17 14:09] LABS: CK-MB VALUE MASS 2.5 NG/ML (<3.6)
[2024-09-17 14:11] LABS: MB/CK RELATIVE INDEX 2.4 (< OR =4)
[2024-09-17] MEDS ORDERED: FURO20TA2 PO (15:43)
[2024-09-17] MEDS ORDERED: METO25TA4 PO (15:47)
[2024-09-17] MEDS ORDERED: POTA1TAB23 PO (15:47)
[2024-09-17] MEDS ORDERED: LOSA50TA28 PO (15:47)
[2024-09-17] MEDS ORDERED: HOME MED LIST COMPLETE! XX SCH (15:50)
[2024-09-17] MEDS ORDERED: ACETAMINOPHEN 325 MG TAB PO PRN (16:40)
[2024-09-17] MEDS ORDERED: VANCOMYCIN HCL 1,000 MG in IV FLUID PLACE HOLDER 1 EA IV SCH (16:45)
[2024-09-17 17:55] VITALS: BP 142/82; TEMP 98.3; O2SAT 90
[2024-09-17] MEDS: VANCOMYCIN HCL 1,500 MG, VIAL MATE ADAPTER 1 EACH in NS 500 ML IV ONE (18:33)
[2024-09-17] MEDS: KETOROLAC 30 MG/ML 1 ML VIAL IV SCH (18:34)
[2024-09-17] MEDS: ASPIRIN 81 MG CHEWABLE TABLET PO SCH (18:35)
[2024-09-17] MEDS: NS (Normal Saline) 0.9% 1,000 ML IV ONE (18:36)
[2024-09-17 18:43] VITALS: O2SAT 94
[2024-09-17 18:45] VITALS: O2SAT 92
[2024-09-17] MEDS: IPRATROPIUM 0.5 MG/ALBUTEROL 2.5 MG INH SOL UD 3 ML NEB SCH (19:19)
[2024-09-17 20:00] VITALS: BP 128/72; TEMP 98.5; O2SAT 94
[2024-09-17] MEDS: MORPHINE 10 MG/0.5 ML ORAL CONCENTRATE SOLUTION U/D SL PRN (20:38)
[2024-09-17] MEDS: ACETAMINOPHEN 500 MG TAB PO SCH (20:39)
[2024-09-17] MEDS: CETIRIZINE 10 MG TAB PO SCH (20:39)
[2024-09-17] MEDS: FAMOTIDINE 20 MG TAB PO SCH (20:40)
[2024-09-17] MEDS: DOCUSATE SODIUM 100 MG CAPSULE PO SCH (20:40)
[2024-09-17] MEDS: HEPARIN SOD 5000 UNITS/ML 1 ML VIAL/SYRINGE SQ SCH (20:41)
[2024-09-17] MEDS: METOPROLOL TART 25 MG TABLET PO SCH (20:41)
[2024-09-17] MEDS: levETIRAcetam 250 MG TABLET PO SCH (20:41)
[2024-09-17] MEDS ORDERED: traMADol 50 MG TAB PO SCH (21:00)
[2024-09-17] MEDS: FUROSEMIDE 40 MG/4 ML VIAL IV ONE (23:37)
[2024-09-17 23:50] LABS: ABG BASE EXCESS -8.5 (-2.0-2.0); ABG HCO3 14.8 MMOL/L (22.0-26.0); ABG O2 SATURATION 99.1 % (95.0-99.0); ABG PARTIAL PRESSURE CO2 25.7 mmHg (35.0-45.0); ABG PARTIAL PRESSURE O2 141.8 mmHg (75.0-100.0); ABG STANDARD HCO3 17.8 MMOL/L. (22.0-26.0); ABG TOTAL CO2 15.6 MMOL/L (23.0-31.0); ABG pH (ARTERIAL) 7.378 UNITS (7.350-7.450)
[2024-09-18] VITALS (27 sets, daily range): BP systolic 117–146; BP diastolic 62–97; TEMP 97.3–98.5; O2SAT 70–96
[2024-09-18] MEDS: IPRATROPIUM 0.5 MG/ALBUTEROL 2.5 MG INH SOL UD 3 ML NEB SCH (03:56)
[2024-09-18 07:02] LABS: BASO % 0.1 % (0.0-1.0); HEMATOCRIT 46.4 % (42.0-52.0); HEMOGLOBIN 14.4 g/dl (13.5-17.5); LYMPH # 1.4 10^3/uL (1.5-5.0); LYMPH % 8.5 % (24.0-44.0); MEAN CORPUSCULAR HEMOGLOBIN 32.4 pg (27.0-33.0); MEAN CORPUSCULAR VOLUME 104.3 fl (80.0-96.0); MONO # 1.6 10^3/uL (0.0-0.8); MONO % 9.6 % (2.0-8.0); NEUTROPHILS # 13.1 10^3/uL (1.5-8.5); NEUTROPHILS % 81.2 % (36.0-66.0); PLATELET COUNT, AUTOMATED 263 10^3/uL (150-450); RED BLOOD COUNT 4.45 10^6/uL (4.30-6.10); WHITE BLOOD COUNT 16.2 10^3/uL (4.0-10.0)
[2024-09-18] MEDS: TIOTROPIUM BROM 2.5MCG/ACTUATION 4GM INH INH SCH (07:08)
[2024-09-18 07:38] LABS: BLOOD UREA NITROGEN 21 MG/DL (9-23); CALCIUM LEVEL 8.3 MG/DL (8.3-10.6); CARBON DIOXIDE LEVEL 20 MMOL/L (20-31); CHLORIDE LEVEL 109 MMOL/L (98-107); CREATININE FOR GFR 0.85 MG/DL (0.70-1.30); GLOMERULAR FILTRATION RATE > 90.0 (>49); GLUCOSE, FASTING 125 MG/DL (74-106); SODIUM LEVEL 143 MMOL/L (136-145)
[2024-09-18 08:11] LABS: KETONE, URINE MANUAL REFLEX OBSCURED mg/dL (NEGATIVE); NITRITE, URINE MANUAL RFX OBSCURED (NEGATIVE); PROTEIN, URINE MANUAL REFLEX 3+ mg/dL (NEGATIVE); SP GRAVITY,URINE MANUAL REFLEX 1.036 (1.002-1.035); UROBILINOGEN, UA MANUAL REFLEX OBSCURED mg/dl (NORMAL)
[2024-09-18 08:14] LABS: RBC, URINE MAN REFLEX TNTC /hpf (0-3)
[2024-09-18 08:15] LABS: SQUAMOUS EPITHELIAL URINE RFX SMALL AMOUNT /hpf (SMALL AMT)
[2024-09-18 08:16] LABS: HYALINE CAST, URINE RFX NONE SEEN /lpf (0-1); MICROSCOPIC EXAM RFX UNSPUN; YEAST, URINE RFX SMALL AMOUNT
[2024-09-18] MEDS: VANCOMYCIN HCL 1,000 MG, VIAL MATE ADAPTER 1 EACH in NS 250 ML IV SCH (08:22)
[2024-09-18] MEDS: cefTRIAXone SOD 2 GM in DEXTROSE 5% (D5W) ADV/MINI-BAG 50 ML IV SCH (10:54)
[2024-09-18 12:11] LABS: C REACTIVE PROTEIN QUANTITATIV 9.21 MG/DL (<1.0)
[2024-09-18] MEDS: SODIUM CHLORIDE NASAL 0.65% SPRAY BTL (OCEAN) SCH (12:48)
[2024-09-18] MEDS: SALINE NOSE DROPS 30 ML SCH (16:51)
[2024-09-18] MEDS ORDERED: SODIUM CHLORIDE NASAL 0.65% SPRAY BTL (OCEAN) SCH (20:00)
[2024-09-18] MEDS: IPRATROPIUM 0.5 MG/ALBUTEROL 2.5 MG INH SOL UD 3 ML NEB PRN (21:44)
[2024-09-18] MEDS: MORPHINE 10 MG/0.5 ML ORAL CONCENTRATE SOLUTION U/D SL PRN (23:45)
[2024-09-19] VITALS (8 sets, daily range): BP systolic 109–146; BP diastolic 64–94; TEMP 97–97.8; O2SAT 90–92
[2024-09-19 07:35] LABS: BASO % 0.1 % (0.0-1.0); EOS % 0.1 % (0.0-3.0); HEMATOCRIT 44.6 % (42.0-52.0); HEMOGLOBIN 14.2 g/dl (13.5-17.5); LYMPH # 1.8 10^3/uL (1.5-5.0); MEAN CORPUSCULAR HEMOGLOBIN 32.9 pg (27.0-33.0); MEAN CORPUSCULAR HGB CONC 31.8 g/dl (32.0-36.5); MEAN CORPUSCULAR VOLUME 103.5 fl (80.0-96.0); MONO # 1.9 10^3/uL (0.0-0.8); MONO % 12.6 % (2.0-8.0); NEUTROPHILS # 11.2 10^3/uL (1.5-8.5); NEUTROPHILS % 74.4 % (36.0-66.0); PLATELET COUNT, AUTOMATED 253 10^3/uL (150-450); RED BLOOD COUNT 4.31 10^6/uL (4.30-6.10)
[2024-09-19 07:58] LABS: BLOOD UREA NITROGEN 23 MG/DL (9-23); C REACTIVE PROTEIN QUANTITATIV 7.77 MG/DL (<1.0); CALCIUM LEVEL 9.3 MG/DL (8.3-10.6); CARBON DIOXIDE LEVEL 19 MMOL/L (20-31); CHLORIDE LEVEL 111 MMOL/L (98-107); CREATININE FOR GFR 0.68 MG/DL (0.70-1.30); GLOMERULAR FILTRATION RATE > 90.0 (>49); GLUCOSE, FASTING 119 MG/DL (74-106); POTASSIUM SERUM 4.5 MMOL/L (3.5-5.1); SODIUM LEVEL 146 MMOL/L (136-145)
[2024-09-19] MEDS: FUROSEMIDE 40 MG/4 ML VIAL IV SCH (09:15)
[2024-09-19] MEDS ORDERED: LIDOCAINE VISCOUS 2% SOLN 15 ML UDC SSP PRN (16:15)
[2024-09-19] MEDS ORDERED: EPINEPHrine INJ 1 MG/ML 1ML AMP As Ordered ONE (22:02)
[2024-09-19] MEDS ORDERED: EPINEPHrine 1 MG/10 ML SYRINGE 1.5IN ONE (22:23)
[2024-09-19] MEDS ORDERED: SODIUM BICARBONATE 8.4% INJ 50ML SYRINGE ONE (22:23)
[2024-09-19] MEDS ORDERED: CALCIUM CHLORIDE 10% 1 GM/10 ML SYR ONE (22:23)
[2024-09-19] MEDS ORDERED: DOXYCYCLINE HYCLATE 100 MG TABLET PO SCH (23:15)
[2025-09-19] MEDS ORDERED: EPINEPHrine HCL INJ 1 MG in D5W 240 ML IV SCH (22:08)
== END 2024-09-19 22:24 | disposition expired | DRG 871 ==
LOC: M ED 12:03 → EDBD 12:03 → M ED INP 16:38 → M PCU 17:37
PROVIDERS: ADMIT Internal Medicine Nephrology; ATTEND Internal Medicine Nephrology
DX: A41.9 Sepsis, unspecified organism (principal); J96.21 Acute and chronic respiratory failure with hypoxia; I50.33 Acute on chronic diastolic (congestive) heart failure; I26.99 Other pulmonary embolism without acute cor pulmonale; I27.82 Chronic pulmonary embolism; E87.20 Acidosis, unspecified; I46.9 Cardiac arrest, cause unspecified; J44.9 Chronic obstructive pulmonary disease, unspecified; G47.33 Obstructive sleep apnea (adult) (pediatric); I27.20 Pulmonary hypertension, unspecified; B35.1 Tinea unguium; M54.6 Pain in thoracic spine; E87.5 Hyperkalemia; E78.5 Hyperlipidemia, unspecified; E11.9 Type 2 diabetes mellitus without complications; G89.29 Other chronic pain; R31.0 Gross hematuria; R21 Rash and other nonspecific skin eruption; I11.0 Hypertensive heart disease with heart failure; G40.909 Epilepsy, unspecified, not intractable, without status epilepticus; J43.9 Emphysema, unspecified; I77.6 Arteritis, unspecified; R07.89 Other chest pain; I69.334 Monoplegia of upper limb following cerebral infarction affecting left non-dominant side; Z90.49 Acquired absence of other specified parts of digestive tract; R91.8 Other nonspecific abnormal finding of lung field; Z79.82 Long term (current) use of aspirin; Z79.899 Other long term (current) drug therapy; Z88.8 Allergy status to other drugs, medicaments and biological substances; Z99.81 Dependence on supplemental oxygen; Z87.891 Personal history of nicotine dependence; Z90.81 Acquired absence of spleen; D72.829 Elevated white blood cell count, unspecified